=== PATIENT | female | born 1960 | race Caucasian/White ===

== ENCOUNTER 2022-10-05 19:12 | Inpatient (IN) | payer OTHER, SELFPAY ==
--- OUTSIDE RECORDS SUMMARY | 2022-10-05 19:20 | XMS REPORT | Continuity of Care Document ---
:1960 Author Organization [facility] t Address [address] [place] [address] Care Team Providers Name Role Phone PCP, PATIENT DOES NOT HAVE A Primary Care Physician Unavaila Nasir Burkett Attending Clinician Unavailable Nasir Marinelli Attending Clinician Unavailable CHRISTOPHER ASCENCIO Attending Clinician Unavailable JULIO CESAR SALAS Attending Clinician Unavailable SETH VEGAS Attending Clinician Unavailable MELONY LANCE Attending Clinician Unavailable JUAN A ANSARI Attending Clinician Unavailable DIEGO VERAS Attending Clinician Unavailable CELINA CARRERA Attending Clinician Unavailable MARIA R BISHOP Attending Clinician Unavailable CLAUDINE CRUZ Attending Clinician Unavailable Harpreet Alberto MD Attending Clinician Claudine Cruz MD Attending Clinician Jovana Suresh Attending Clinician Sánchez Lin MD Attending Clinician Raman Felipe MD Attending Clinician KACI MARK Attending Clinician Unavailable Kaci Mcmillan Attending Clinician Deshawn Lai MD Attending Clinician Jaquelin Velasco DO Attending Clinician JAQUELIN VELASCO Attending Clinician Unavailable Nasir Marinelli Admitting Clinician Unavailable JULIO CESAR SALAS Admitting Clinician Unavailable KRISTOPHER SESAY Admitting Clinician Unavailable DARIO MCINTOSH Admitting Clinician Unavailable CLAUDINE CRUZ Admitting Clinician Unavailable KACI MARK Admitting Clinician Unavailable Claudine Cruz MD Admitting Clinician Payers Payer Name Policy Type Policy Number Effective Date Expiration Date Bennie CUENCA [id number] 2022 PLAN 00:00:00 Problems Condition Condition Condition Status Onset Resolution Last Treating Co mments Source Name Details Category Date Date Treatment Clinician Date Obesity Obesity Disease Active 2020-0 [facility] (BMI (BMI 3-05 ity of 30-39.9) 30-39.9) 00:00: [place] 00 [facility] Surgery, Surgery, Disease Active 2019-0 Unive rs elective elective 3-04 ity of 00:00: 00 [facility] No known No known Disease Unive rs active active ity of problems problems [facility] Allergies, Adverse Reactions, Alerts Allergy Allergy Status Severity Reaction(s) Onset Inactive Treating Comm ents Source Name Type Date Date Clinician IBUPROFE Allergy Active Med [facility] ASPIRIN Allergy Active Other 2019-[address] [facility] CODEINE Allergy Active Other 2020-[address] [facility] HYDROCOD Allergy Active Other 2019-[address] [facility] AMINOPHE 00:00: Medical N 00 Center PENICILL Allergy Active Other 2020-[address] [facility] Aspirin Propensi Active Unknown - 2020-0 Univ ers ty to See comments 3-04 ity of adverse 00:00: [place] reaction 00 Medical [facility] Codeine Propensi Active Other - See 2020-0 Enhances Univers ty to comments 3-04 senses ity of adverse 00:00: [place] reaction 00 [facility] ASPIRIN DRUG Active Unknown-Cmnt 2020-0 Uni vers INGREDI 3-04 ity of 00:00: 00 [facility] CODEINE DRUG Active Other-Cmnt 2020-0 Unive rs INGREDI 3-04 ity of 00:00: [place] 00 Medical Branch PENICILL DRUG Active Unknown-Cmnt Un thu IN INGREDI 05-18 ity of 00:00: 00 Medical Branch HYDROCOD DRUG Active Other-Cmnt Univ ers ONE-ACET 05-18 ity of AMINOPHE 00:00: [place] N 00 Medical Branch Penicill Propensi Active Unknown - Uni vers in ty to See comments 05-18 ity of adverse 00:00: [place] reaction 00 Medical s Branch Hydrocod Propensi Active Other - See Enhanced Univers one-Acet ty to comments 05-18 senses ity of aminophe adverse 00:00: [place] n reaction 00 [facility] s Branch No Known Drug Active [facility] aspirin Drug Active [facility] penicill Drug Active [facility] Vicodin Drug Active [facility] aspirin Drug Active [facility] penicill Drug Active [facility] Vicodin Drug Active [facility] aspirin Drug Active [facility] penicill Drug Active [facility] Vicodin Drug Active [facility] aspirin Drug Active [facility] penicill Drug Active [facility] Vicodin Drug Active [facility] aspirin Drug Active [facility] penicill Drug Active [facility] Vicodin Drug Active [facility] aspirin Drug Active [facility] penicill Drug Active [facility] Vicodin Drug Active [facility] aspirin Drug Active [facility] penicill Drug Active [facility] Vicodin Drug Active [facility] Social History Social Habit Start Date Stop Date Quantity Comments Source [facility] to [facility]-CoV-2 [facility] Assigned At [facility] Smoking Status Start Date Stop Date Source Current every day smoker 2019-05-20 00:00:00 [facility] Unknown if ever smoked [facility] y [facility] Medications Ordered Filled Start Stop Current Ordering Indication Dosage Frequency Signature Comments Components Source Medication Medication Date Date Medication? Clinician (SIG) Name Name gabapentin 2020-0 Yes [id number] 300mg Take 1 [facility] 300 mg 6-04 capsule by ity of capsule 00:00: mouth 3 (three) Medical times Branch daily. gabapentin 2020-0 Yes [id number] 300mg Take 1 [facility] 300 mg 6-04 capsule by ity of capsule 00:00: mouth 3 (three) Medical times Branch daily. gabapentin 2020-0 Yes [id number] 300mg Take 1 [facility] 300 mg 6-04 capsule by ity of capsule 00:00: mouth 3 (three) Medical times Branch daily. gabapentin 2020-0 Yes [id number] 300mg Take 1 [facility] 300 mg 6-04 capsule by ity of capsule 00:00: mouth 3 (three) Medical times Branch daily. gabapentin 2020-0 Yes [id number] 300mg Take 1 [facility] 300 mg 6-04 capsule by ity of capsule 00:00: mouth (three) Medical times Branch daily. gabapentin 2020-0 Yes [id number] 300mg Take 1 [facility] 300 mg 4-23 capsule by ity of capsule 00:00: mouth (three) Medical times Branch daily. gabapentin 2020-0 Yes [id number] 300mg Take 1 [facility] 300 mg 4-23 capsule by ity of capsule 00:00: mouth (three) Medical times Branch daily. gabapentin 2020-0 Yes [id number] 300mg Take 1 [facility] 300 mg 4-23 capsule by ity of capsule 00:00: mouth (three) Medical times Branch daily. gabapentin 2020-0 Yes [id number] 300mg Take 1 [facility] 300 mg 4-23 capsule by ity of capsule 00:00: mouth (three) Medical times Branch daily. gabapentin 2020-0 Yes [id number] 300mg Take 1 [facility] 300 mg 4-23 capsule by ity of capsule 00:00: mouth 3 (three) Medical times Branch daily. gabapentin 2020-0 Yes [id number] 300mg Take 1 [facility] 300 mg 4-23 capsule by ity of capsule 00:00: mouth 3 (three) Medical times Branch daily. gabapentin 2020-0 2020- No [id number] 300mg Take 1 Univers 300 mg 4-23 06-04 capsule by ity of capsule 00:00: 00:00 mouth 3 [place] 00 :00 (three) Medical times Branch daily. gabapentin 2020-0 2020- No [id number] 300mg Take 1 Univers 300 mg 07-07 capsule by ity of capsule 00:00: 00:00 mouth 3 [place] 00 :00 (three) Medical times Branch daily. KCL 20 mEq 2019-0 2020- No [id number] 20meq Take 1 Univers tablet 05-25 [id number] tablet by ity o f 00:00: 04:59 mouth [place] 00 :00 daily for Medical 60 days. Branch KCL 20 mEq 2020-0 2020- No [id number] 20meq Take 1 Univers tablet 05-25 [id number] tablet by ity o f 00:00: 04:59 mouth [place] 00 :00 daily for Medical 60 days. Branch KCL 20 mEq 2020-0 2020- No [id number] 20meq Take 1 Univers tablet 05-25 [id number] tablet by ity o f 00:00: 04:59 mouth [place] 00 :00 daily for Medical 60 days. Branch KCL 20 mEq 2019-0 2020- No [id number] 20meq Take 1 Univers tablet 05-25 [id number] tablet by ity o f 00:00: 04:59 mouth [place] 00 :00 daily for Medical 60 days. Branch KCL 20 mEq 2020-0 2020- No [id number] 20meq Take 1 Univers tablet 05-25 [id number] tablet by ity o f 00:00: 04:59 mouth [place] 00 :00 daily for Medical 60 days. Branch KCL 20 mEq 2020-0 2020- No [id number] 20meq Take 1 Univers tablet 05-25 [id number] tablet by ity o f 00:00: 04:59 mouth [place] 00 :00 daily for Medical 60 days. Branch KCL 20 mEq 2020-0 2020- No [id number] 20meq Take 1 Univers tablet 05-25 [id number] tablet by ity o f 00:00: 04:59 mouth [place] 00 :00 daily for Medical 60 days. Branch KCL 20 mEq 2020-0 2020- No [id number] 20meq Take 1 Univers tablet 05-25 [id number] tablet by ity o f 00:00: 04:59 mouth [place] 00 :00 daily for Medical 60 days. Branch KCL 20 mEq 2020-0 2020- No [id number] 20meq Take 1 Univers tablet 05-25 [id number] tablet by ity o f 00:00: 04:59 mouth [place] 00 :00 daily for Medical 60 days. Branch KCL 20 mEq 2020-0 2020- No [id number] 20meq Take 1 Univers tablet 05-25 [id number] tablet by ity o f 00:00: 04:59 mouth [place] 00 :00 daily for Medical 60 days. Branch KCL 20 mEq 2020-0 2020- No [id number] 20meq Take 1 Univers tablet 05-25 [id number] tablet by ity o f 00:00: 04:59 mouth [place] 00 :00 daily for Medical 60 days. Branch KCL 20 mEq 2019-0 2020- No [id number] 20meq Take 1 Univers tablet 05-25 [id number] tablet by ity o f 00:00: 04:59 mouth [place] 00 :00 daily for Medical 60 days. Branch KCL 20 mEq 2019-0 2020- No [id number] 20meq Take 1 Univers tablet 05-25 [id number] tablet by ity o f 00:00: 04:59 mouth [place] 00 :00 daily for Medical 60 days. Branch KCL 20 mEq 2019-0 2020- No [id number] 20meq Take 1 Univers tablet 05-25 [id number] tablet by ity o f 00:00: 04:59 mouth [place] 00 :00 daily for Medical 60 days. Branch traMADol 50 2019-0 2020- No [id number] 50mg Take 1 Univers mg tablet 05-24 [id number] tablet by it y of 00:00: 04:59 mouth [place] 00 :00 every 8 Medical (eight) Branch hours for 10 days. traMADol 50 2020-0 2020- No [id number] 50mg Take 1 Univers mg tablet 05-24 [id number] tablet by it y of 00:00: 04:59 mouth [place] 00 :00 every 8 Medical (eight) Branch hours for 10 days. traMADol 2020-0 Yes 50mg 50 mg, Univers (ULTRAM) 05-23 Oral, ity of tablet 50 16:30: Q8HPRN, [place] mg 00 Starting Medical 05/24/19 Branch at 1130, Until Discontinu ed, Routine, Pain (scale 4-6) KCL 2020-0 2020- No 20meq 20 mEq, Univers (KLOR-CON 05-23 Oral, ity of M20) tablet 04:00: 03:53 ONCE, 1 [place] 20 mEq 00 :00 dose, [place] [facility] 05/23/19 at Branch 2300, Routine KCL 2020-0 Yes 40meq 40 mEq, Univers (KLOR-CON 3-08 Oral, ity of M20) tablet 22:30: DAILY, [place] 40 m[place] 00 First dose Medical on [facility] 05/23/19 at 1730, Until Discontinu ed, Routine NaCl 0.9% 2020-0 2020- No 500mL at 999 Univ ers (NS) bolus 3-08 03-08 mL/hr, 500 it y of infusion 08:00: 07:15 mL, [place] 500 mL 00 :00 Intravenou Medical s, ONCE, 1 Branch dose, [place] 05/23/19 at 0300, SEGUN NaCl 0.9% 2020-0 2020- No 500mL at 999 Univ ers (NS) bolus 3-07 03-07 mL/hr, 500 it y of infusion 11:45: 11:15 mL, [place] 500 mL 00 :00 Intravenou Medical s, ONCE, 1 Branch dose, [facility] 05/22/19 at 0545, STAT levothyroxi 2020-0 Yes [id number] 100ug Take 1 Univers ne 100 mcg 3- [id number] tablet by it y of tablet 00:00: mouth [place] 00 every Medical morning. Branch torsemide 2020-0 Yes [id number] 20mg Take 1 Univers 20 mg 3- [id number] tablet by ity of tablet 00:00: mouth [place] 00 daily. [facility] Branch levothyroxi 2020-0 Yes [id number] 100ug Take 1 Univers ne 100 mcg 3- [id number] tablet by it y of tablet 00:00: mouth [place] 00 every Medical morning. Branch torsemide 2020-0 Yes [id number] 20mg Take 1 Univers 20 mg 3- [id number] tablet by ity of tablet 00:00: mouth [place] 00 daily. [facility] Branch levothyroxi 2020-0 Yes [id number] 100ug Take 1 Univers ne 100 mcg 3- [id number] tablet by it y of tablet 00:00: mouth [place] 00 every Medical morning. Branch torsemide 2020-0 Yes [id number] 20mg Take 1 Univers 20 mg 3- [id number] tablet by ity of tablet 00:00: mouth [place] 00 daily. [facility] Branch levothyroxi 2020-0 Yes [id number] 100ug Take 1 Univers ne 100 mcg 3- [id number] tablet by it y of tablet 00:00: mouth [place] 00 every Medical morning. Branch torsemide 2020-0 Yes [id number] 20mg Take 1 Univers 20 mg 3- [id number] tablet by ity of tablet 00:00: mouth [place] 00 daily. Medical Branch levothyroxi 2020-0 Yes [id number] 100ug Take 1 Univers ne 100 mcg 3- [id number] tablet by it y of tablet 00:00: mouth [place] 00 every Medical morning. Branch torsemide 2020-0 Yes [id number] 20mg Take 1 Univers 20 mg 3- [id number] tablet by ity of tablet 00:00: mouth [place] 00 daily. Medical Branch levothyroxi 2020-0 Yes [id number] 100ug Take 1 Univers ne 100 mcg 3- [id number] tablet by it y of tablet 00:00: mouth [place] 00 every Medical morning. Branch torsemide 2020-0 Yes [id number] 20mg Take 1 Univers 20 mg 3- [id number] tablet by ity of tablet 00:00: mouth [place] 00 daily. Medical Branch levothyroxi 2020-0 Yes [id number] 100ug Take 1 Univers ne 100 mcg 3- [id number] tablet by it y of tablet 00:00: mouth [place] 00 every Medical morning. Branch torsemide 2020-0 Yes [id number] 20mg Take 1 Univers 20 mg 3- [id number] tablet by ity of tablet 00:00: mouth [place] 00 daily. Medical Branch levothyroxi 2020-0 Yes [id number] 100ug Take 1 Univers ne 100 mcg 3- [id number] tablet by it y of tablet 00:00: mouth [place] 00 every Medical morning. Branch torsemide 2020-0 Yes [id number] 20mg Take 1 Univers 20 mg 3- [id number] tablet by ity of tablet 00:00: mouth [place] 00 daily. Medical Branch levothyroxi 2020-0 Yes [id number] 100ug Take 1 Univers ne 100 mcg 3- [id number] tablet by it y of tablet 00:00: mouth [place] 00 every Medical morning. Branch torsemide 2020-0 Yes [id number] 20mg Take 1 Univers 20 mg 3-07 [id number] tablet by ity of tablet 00:00: mouth [place] 00 daily. Medical Branch levothyroxi 2020-0 Yes [id number] 100ug Take 1 Univers ne 100 mcg 3- [id number] tablet by it y of tablet 00:00: mouth [place] 00 every Medical morning. Branch torsemide 2020-0 Yes [id number] 20mg Take 1 Univers 20 mg 3- [id number] tablet by ity of tablet 00:00: mouth [place] 00 daily. Medical Branch levothyroxi 2020-0 Yes [id number] 100ug Take 1 Univers ne 100 mcg 3-07 [id number] tablet by it y of tablet 00:00: mouth [place] 00 every Medical morning. Branch torsemide 2020-0 Yes [id number] 20mg Take 1 Univers 20 mg 3-07 [id number] tablet by ity of tablet 00:00: mouth [place] 00 daily. Medical Branch levothyroxi 2020-0 Yes [id number] 100ug Take 1 Univers ne 100 mcg 3- [id number] tablet by it y of tablet 00:00: mouth [place] 00 every Medical morning. Branch torsemide 2020-0 Yes [id number] 20mg Take 1 Univers 20 mg 3- [id number] tablet by ity of tablet 00:00: mouth [place] 00 daily. Medical Branch levothyroxi 2020-0 Yes [id number] 100ug Take 1 Univers ne 100 mcg 3- [id number] tablet by it y of tablet 00:00: mouth [place] 00 every Medical morning. Branch torsemide 2020-0 Yes [id number] 20mg Take 1 Univers 20 mg 3- [id number] tablet by ity of tablet 00:00: mouth [place] 00 daily. Medical Branch levothyroxi 2020-0 Yes [id number] 100ug Take 1 Univers ne 100 mcg 3- [id number] tablet by it y of tablet 00:00: mouth [place] 00 every Medical morning. Branch torsemide 2020-0 Yes [id number] 20mg Take 1 Univers 20 mg 3-07 [id number] tablet by ity of tablet 00:00: mouth [place] 00 daily. Medical Branch levothyroxi 2020-0 Yes [id number] 100ug Take 1 Univers ne 100 mcg 3-07 [id number] tablet by it y of tablet 00:00: mouth [place] 00 every Medical morning. Branch torsemide 2020-0 Yes [id number] 20mg Take 1 Univers 20 mg 3-07 [id number] tablet by ity of tablet 00:00: mouth [place] 00 daily. Medical Branch levothyroxi 2020-0 Yes [id number] 100ug Take 1 Univers ne 100 mcg 3-07 [id number] tablet by it y of tablet 00:00: mouth [place] 00 every Medical morning. [place] torsemide 2020-0 Yes [id number] 20mg Take 1 Univers 20 mg - [id number] tablet by ity of tablet 00:00: mouth [place] 00 daily. [facility] levothyroxi 2020-0 Yes [id number] 100ug Take 1 Univers ne 100 mcg 3- [id number] tablet by it y of tablet 00:00: mouth [place] 00 every Medical morning. [place] torsemide 2020-0 Yes [id number] 20mg Take 1 Univers 20 mg - [id number] tablet by ity of tablet 00:00: mouth [place] 00 daily. [facility] levothyroxi 2020-0 Yes [id number] 100ug Take 1 Univers ne 100 mcg - [id number] tablet by it y of tablet 00:00: mouth [place] 00 every Medical morning. [place] torsemide 2020-0 Yes [id number] 20mg Take 1 Univers 20 mg - [id number] tablet by ity of tablet 00:00: mouth [place] 00 daily. [facility] levothyroxi 2020-0 Yes [id number] 100ug Take 1 Univers ne 100 mcg 05-21 [id number] tablet by it y of tablet 00:00: mouth [place] 00 every Medical morning. [place] torsemide 2020-0 Yes [id number] 20mg Take 1 Univers 20 mg 05-21 [id number] tablet by ity of tablet 00:00: mouth [place] 00 daily. [facility] levothyroxi 2020-0 Yes [id number] 100ug Take 1 Univers ne 100 mcg 05-21 [id number] tablet by it y of tablet 00:00: mouth [place] 00 every Medical morning. [place] torsemide 2020-0 Yes [id number] 20mg Take 1 Univers 20 mg 05-21 [id number] tablet by ity of tablet 00:00: mouth [place] 00 daily. [facility] levothyroxi 2020-0 Yes 100ug 100 mcg, U nivers ne - Oral, ity of (SYNTHROID) 12:00: QAM-0600, [place] tablet 100 00 First dose Med ical mcg on Fri [place] 05/21/19 at 0600, Until Discontinu ed, Routine acetaminoph 2020-0 2020- No 500mg 500 mg, U nivers en 05-20 03-09 Oral, ity of (TYLENOL) 07:21: 16:24 Q6HPRN, [place] tablet 500 45 :56 Starting Medic al mg 05/21/19 Branch at 0121, Until 05/24/19 at 1124, Routine, Pain (scale 1-3), Alternate with [place] for pain scale 1-3 acetaminoph 2020-0 Yes [id number] 500mg Take 1 Univers en 500 mg 3-06 [id number] tablet by ity of tablet 00:00: mouth [place] 00 every 6 Medical (six) Branch hours as needed for Pain. cyclobenzap 2020-0 Yes [id number] 5mg Take 1 Univers rine 5 mg 3-06 [id number] tablet by ity of tablet 00:00: mouth 3 [place] 00 (three) Medical times Branch daily. gabapentin 2020-0 Yes [id number] 300mg Take 1 Univers 300 mg 3-06 [id number] capsule by ity o f capsule 00:00: mouth 3 [place] 00 (three) Medical times Branch daily. sennosides- 2020-0 Yes [id number] 1{tbl} Take 1 Univers docusate 3-06 [id number] tablet by ity of sodium 00:00: mouth 2 [place] 8.6-50 mg 00 (two) Medical per tablet times Branch daily. acetaminoph 2020-0 Yes [id number] 500mg Take 1 Univers en 500 mg 3-06 [id number] tablet by ity of tablet 00:00: mouth [place] 00 every 6 Medical (six) Branch hours as needed for Pain. cyclobenzap 2020-0 Yes [id number] 5mg Take 1 Univers rine 5 mg 3-06 [id number] tablet by ity of tablet 00:00: mouth 3 [place] 00 (three) Medical times Branch daily. gabapentin 2020-0 Yes [id number] 300mg Take 1 Univers 300 mg 3-06 [id number] capsule by ity o f capsule 00:00: mouth 3 [place] 00 (three) Medical times Branch daily. sennosides- 2020-0 Yes [id number] 1{tbl} Take 1 Univers docusate 3-06 [id number] tablet by ity of sodium 00:00: mouth 2 [place] 8.6-50 mg 00 (two) Medical per tablet times Branch daily. acetaminoph 2020-0 Yes [id number] 500mg Take 1 Univers en 500 mg 3-06 [id number] tablet by ity of tablet 00:00: mouth [place] 00 every 6 Medical (six) Branch hours as needed for Pain. cyclobenzap 2020-0 Yes [id number] 5mg Take 1 Univers rine 5 mg 3-06 [id number] tablet by ity of tablet 00:00: mouth 3 [place] 00 (three) Medical times Branch daily. gabapentin 2020-0 Yes [id number] 300mg Take 1 Univers 300 mg 3-06 [id number] capsule by ity o f capsule 00:00: mouth 3 [place] 00 (three) Medical times Branch daily. sennosides- 2020-0 Yes [id number] 1{tbl} Take 1 Univers docusate 3-06 [id number] tablet by ity of sodium 00:00: mouth 2 [place] 8.6-50 mg 00 (two) Medical per tablet times Branch daily. acetaminoph 2020-0 Yes [id number] 500mg Take 1 Univers en 500 mg 3-06 [id number] tablet by ity of tablet 00:00: mouth [place] 00 every 6 Medical (six) Branch hours as needed for Pain. cyclobenzap 2020-0 Yes [id number] 5mg Take 1 Univers rine 5 mg 3-06 [id number] tablet by ity of tablet 00:00: mouth 3 [place] 00 (three) Medical times Branch daily. gabapentin 2020-0 Yes [id number] 300mg Take 1 Univers 300 mg 3-06 [id number] capsule by ity o f capsule 00:00: mouth 3 00 (three) Medical times Branch daily. sennosides- 2020-0 Yes [id number] 1{tbl} Take 1 Univers docusate 3-06 [id number] tablet by ity of sodium 00:00: mouth 2 [place] 8.6-50 mg 00 (two) Medical per tablet times Branch daily. acetaminoph 2020-0 Yes [id number] 500mg Take 1 Univers en 500 mg 3-06 [id number] tablet by ity of tablet 00:00: mouth [place] 00 every 6 Medical (six) Branch hours as needed for Pain. cyclobenzap 2020-0 Yes [id number] 5mg Take 1 Univers rine 5 mg 3-06 [id number] tablet by ity of tablet 00:00: mouth 3 [place] 00 (three) Medical times Branch daily. gabapentin 2020-0 Yes [id number] 300mg Take 1 Univers 300 mg 3-06 [id number] capsule by ity o f capsule 00:00: mouth 3 [place] 00 (three) Medical times Branch daily. sennosides- 2020-0 Yes [id number] 1{tbl} Take 1 Univers docusate 3-06 [id number] tablet by ity of sodium 00:00: mouth 2 [place] 8.6-50 mg 00 (two) Medical per tablet times Branch daily. acetaminoph 2020-0 Yes [id number] 500mg Take 1 Univers en 500 mg 3-06 [id number] tablet by ity of tablet 00:00: mouth [place] 00 every 6 Medical (six) Branch hours as needed for Pain. cyclobenzap 2020-0 Yes [id number] 5mg Take 1 Univers rine 5 mg 3-06 [id number] tablet by ity of tablet 00:00: mouth 3 [place] 00 (three) Medical times Branch daily. gabapentin 2020-0 Yes [id number] 300mg Take 1 Univers 300 mg 3-06 [id number] capsule by ity o f capsule 00:00: mouth 3 [place] 00 (three) Medical times Branch daily. sennosides- 2020-0 Yes [id number] 1{tbl} Take 1 Univers docusate 3-06 [id number] tablet by ity of sodium 00:00: mouth 2 [place] 8.6-50 mg 00 (two) Medical per tablet times Branch daily. acetaminoph 2020-0 Yes [id number] 500mg Take 1 Univers en 500 mg 3-06 [id number] tablet by ity of tablet 00:00: mouth [place] 00 every 6 Medical (six) Branch hours as needed for Pain. cyclobenzap 2020-0 Yes [id number] 5mg Take 1 Univers rine 5 mg 3-06 [id number] tablet by ity of tablet 00:00: mouth 3 [place] 00 (three) Medical times Branch daily. gabapentin 2020-0 Yes [id number] 300mg Take 1 Univers 300 mg 3-06 [id number] capsule by ity o f capsule 00:00: mouth 3 [place] 00 (three) Medical times Branch daily. sennosides- 2020-0 Yes [id number] 1{tbl} Take 1 Univers docusate 3-06 [id number] tablet by ity of sodium 00:00: mouth 2 [place] 8.6-50 mg 00 (two) Medical per tablet times Branch daily. acetaminoph 2020-0 Yes [id number] 500mg Take 1 Univers en 500 mg 3-06 [id number] tablet by ity of tablet 00:00: mouth [place] 00 every 6 Medical (six) Branch hours as needed for Pain. cyclobenzap 2020-0 Yes [id number] 5mg Take 1 Univers rine 5 mg 3-06 [id number] tablet by ity of tablet 00:00: mouth 3 [place] 00 (three) Medical times Branch daily. gabapentin 2020-0 Yes [id number] 300mg Take 1 Univers 300 mg 3-06 [id number] capsule by ity o f capsule 00:00: mouth 3 [place] 00 (three) Medical times Branch daily. sennosides- 2020-0 Yes [id number] 1{tbl} Take 1 Univers docusate 3-06 [id number] tablet by ity of sodium 00:00: mouth 2 [place] 8.6-50 mg 00 (two) Medical per tablet times Branch daily. acetaminoph 2020-0 Yes [id number] 500mg Take 1 Univers en 500 mg 3-06 [id number] tablet by ity of tablet 00:00: mouth [place] 00 every 6 Medical (six) Branch hours as needed for Pain. cyclobenzap 2020-0 Yes [id number] 5mg Take 1 Univers rine 5 mg 3-06 [id number] tablet by ity of tablet 00:00: mouth 3 [place] 00 (three) Medical times Branch daily. gabapentin 2020-0 Yes [id number] 300mg Take 1 Univers 300 mg 3-06 [id number] capsule by ity o f capsule 00:00: mouth 3 00 (three) Medical times Branch daily. sennosides- 2020-0 Yes [id number] 1{tbl} Take 1 Univers docusate 3-06 [id number] tablet by ity of sodium 00:00: mouth 2 [place] 8.6-50 mg 00 (two) Medical per tablet times Branch daily. acetaminoph 2020-0 Yes [id number] 500mg Take 1 Univers en 500 mg 3-06 [id number] tablet by ity of tablet 00:00: mouth [place] 00 every 6 Medical (six) Branch hours as needed for Pain. cyclobenzap 2020-0 Yes [id number] 5mg Take 1 Univers rine 5 mg 3-06 [id number] tablet by ity of tablet 00:00: mouth 3 [place] 00 (three) Medical times Branch daily. gabapentin 2020-0 Yes [id number] 300mg Take 1 [facility] 300 mg 3-06 [id number] capsule by ity o f capsule 00:00: mouth 3 [place] 00 (three) Medical times Branch daily. sennosides- 2020-0 Yes [id number] 1{tbl} Take 1 Univers docusate 3-06 [id number] tablet by ity of sodium 00:00: mouth 2 [place] 8.6-50 mg 00 (two) Medical per tablet times Branch daily. acetaminoph 2020-0 Yes [id number] 500mg Take 1 Univers en 500 mg 3-06 [id number] tablet by ity of tablet 00:00: mouth [place] 00 every 6 Medical (six) Branch hours as needed for Pain. cyclobenzap 2020-0 Yes [id number] 5mg Take 1 Univers rine 5 mg 3-06 [id number] tablet by ity of tablet 00:00: mouth 3 [place] 00 (three) Medical times Branch daily. gabapentin 2020-0 Yes [id number] 300mg Take 1 Univers 300 mg 3-06 [id number] capsule by ity o f capsule 00:00: mouth 3 [place] 00 (three) Medical times Branch daily. sennosides- 2020-0 Yes [id number] 1{tbl} Take 1 Univers docusate 3-06 [id number] tablet by ity of sodium 00:00: mouth 2 [place] 8.6-50 mg 00 (two) Medical per tablet times Branch daily. acetaminoph 2020-0 Yes [id number] 500mg Take 1 Univers en 500 mg 3-06 [id number] tablet by ity of tablet 00:00: mouth [place] 00 every 6 Medical (six) Branch hours as needed for Pain. cyclobenzap 2020-0 Yes [id number] 5mg Take 1 Univers rine 5 mg 3-06 [id number] tablet by ity of tablet 00:00: mouth 3 [place] 00 (three) Medical times Branch daily. gabapentin 2020-0 Yes [id number] 300mg Take 1 Univers 300 mg 3-06 [id number] capsule by ity o f capsule 00:00: mouth 3 [place] 00 (three) Medical times Branch daily. sennosides- 2020-0 Yes [id number] 1{tbl} Take 1 Univers docusate 3-06 [id number] tablet by ity of sodium 00:00: mouth 2 [place] 8.6-50 mg 00 (two) Medical per tablet times Branch daily. acetaminoph 2020-0 Yes [id number] 500mg Take 1 Univers en 500 mg 3-06 [id number] tablet by ity of tablet 00:00: mouth [place] 00 every 6 Medical (six) Branch hours as needed for Pain. cyclobenzap 2020-0 Yes [id number] 5mg Take 1 Univers rine 5 mg 3-06 [id number] tablet by ity of tablet 00:00: mouth 3 [place] 00 (three) Medical times Branch daily. gabapentin 2020-0 Yes [id number] 300mg Take 1 Univers 300 mg 3-06 [id number] capsule by ity o f capsule 00:00: mouth 3 [place] 00 (three) Medical times Branch daily. sennosides- 2020-0 Yes [id number] 1{tbl} Take 1 Univers docusate 3-06 [id number] tablet by ity of sodium 00:00: mouth 2 [place] 8.6-50 mg 00 (two) Medical per tablet times Branch daily. acetaminoph 2020-0 Yes [id number] 500mg Take 1 Univers en 500 mg 3-06 [id number] tablet by ity of tablet 00:00: mouth [place] 00 every 6 Medical (six) Branch hours as needed for Pain. cyclobenzap 2020-0 Yes [id number] 5mg Take 1 Univers rine 5 mg 3-06 [id number] tablet by ity of tablet 00:00: mouth 3 [place] 00 (three) Medical times Branch daily. gabapentin 2020-0 Yes [id number] 300mg Take 1 Univers 300 mg 3-06 [id number] capsule by ity o f capsule 00:00: mouth 3 00 (three) Medical times Branch daily. sennosides- 2020-0 Yes [id number] 1{tbl} Take 1 Univers docusate 3-06 [id number] tablet by ity of sodium 00:00: mouth 2 [place] 8.6-50 mg 00 (two) Medical per tablet times Branch daily. acetaminoph 2020-0 Yes [id number] 500mg Take 1 Univers en 500 mg 3-06 [id number] tablet by ity of tablet 00:00: mouth [place] 00 every 6 Medical (six) Branch hours as needed for Pain. cyclobenzap 2020-0 Yes [id number] 5mg Take 1 Univers rine 5 mg 3-06 [id number] tablet by ity of tablet 00:00: mouth 3 [place] 00 (three) Medical times Branch daily. gabapentin 2020-0 Yes [id number] 300mg Take 1 Univers 300 mg 3-06 [id number] capsule by ity o f capsule 00:00: mouth 3 [place] 00 (three) Medical times Branch daily. sennosides- 2020-0 Yes [id number] 1{tbl} Take 1 Univers docusate 3-06 [id number] tablet by ity of sodium 00:00: mouth 2 [place] 8.6-50 mg 00 (two) Medical per tablet times Branch daily. acetaminoph 2020-0 Yes [id number] 500mg Take 1 Univers en 500 mg 3-06 [id number] tablet by ity of tablet 00:00: mouth [place] 00 every 6 Medical (six) Branch hours as needed for Pain. cyclobenzap 2020-0 Yes [id number] 5mg Take 1 Univers rine 5 mg 3-06 [id number] tablet by ity of tablet 00:00: mouth 3 [place] 00 (three) Medical times Branch daily. gabapentin 2020-0 Yes [id number] 300mg Take 1 Univers 300 mg 3-06 [id number] capsule by ity o f capsule 00:00: mouth 3 [place] 00 (three) Medical times Branch daily. sennosides- 2020-0 Yes [id number] 1{tbl} Take 1 Univers docusate 3-06 [id number] tablet by ity of sodium 00:00: mouth 2 [place] 8.6-50 mg 00 (two) Medical per tablet times Branch daily. acetaminoph 2020-0 Yes [id number] 500mg Take 1 Univers en 500 mg 3-06 [id number] tablet by ity of tablet 00:00: mouth [place] 00 every 6 Medical (six) Branch hours as needed for Pain. cyclobenzap 2020-0 Yes [id number] 5mg Take 1 Univers rine 5 mg 3-06 [id number] tablet by ity of tablet 00:00: mouth 3 [place] 00 (three) Medical times Branch daily. gabapentin 2020-0 Yes [id number] 300mg Take 1 Univers 300 mg 3-06 [id number] capsule by ity o f capsule 00:00: mouth 3 [place] 00 (three) Medical times Branch daily. sennosides- 2020-0 Yes [id number] 1{tbl} Take 1 Univers docusate 3-06 [id number] tablet by ity of sodium 00:00: mouth 2 [place] 8.6-50 mg 00 (two) Medical per tablet times Branch daily. acetaminoph 2020-0 Yes [id number] 500mg Take 1 Univers en 500 mg 3-06 [id number] tablet by ity of tablet 00:00: mouth [place] 00 every 6 Medical (six) Branch hours as needed for Pain. cyclobenzap 2020-0 Yes [id number] 5mg Take 1 Univers rine 5 mg 3-06 [id number] tablet by ity of tablet 00:00: mouth 3 [place] 00 (three) Medical times Branch daily. gabapentin 2020-0 Yes [id number] 300mg Take 1 Univers 300 mg 3-06 [id number] capsule by ity o f capsule 00:00: mouth 3 [place] 00 (three) Medical times Branch daily. sennosides- 2020-0 Yes [id number] 1{tbl} Take 1 Univers docusate 3-06 [id number] tablet by ity of sodium 00:00: mouth 2 [place] 8.6-50 mg 00 (two) Medical per tablet times Branch daily. acetaminoph 2020-0 Yes [id number] 500mg Take 1 Univers en 500 mg 3-06 [id number] tablet by ity of tablet 00:00: mouth [place] 00 every 6 Medical (six) Branch hours as needed for Pain. cyclobenzap 2020-0 Yes [id number] 5mg Take 1 Univers rine 5 mg 3-06 [id number] tablet by ity of tablet 00:00: mouth 3 [place] 00 (three) Medical times Branch daily. gabapentin 2020-0 Yes [id number] 300mg Take 1 Univers 300 mg 3-06 [id number] capsule by ity o f capsule 00:00: mouth 3 00 (three) Medical times Branch daily. sennosides- 2020-0 Yes [id number] 1{tbl} Take 1 Univers docusate 3-06 [id number] tablet by ity of sodium 00:00: mouth 2 [place] 8.6-50 mg 00 (two) Medical per tablet times Branch daily. acetaminoph 2020-0 Yes [id number] 500mg Take 1 Univers en 500 mg 3-06 [id number] tablet by ity of tablet 00:00: mouth [place] 00 every 6 Medical (six) Branch hours as needed for Pain. cyclobenzap 2020-0 Yes [id number] 5mg Take 1 Univers rine 5 mg 3-06 [id number] tablet by ity of tablet 00:00: mouth 3 [place] 00 (three) Medical times Branch daily. gabapentin 2020-0 Yes [id number] 300mg Take 1 Univers 300 mg 3-06 [id number] capsule by ity o f capsule 00:00: mouth 3 [place] 00 (three) Medical times Branch daily. sennosides- 2020-0 Yes [id number] 1{tbl} Take 1 Univers docusate 05-20 [id number] tablet by ity of sodium 00:00: mouth 2 [place] 8.6-50 mg 00 (two) Medical per tablet times Branch daily. traMADol 50 2020-0 2020- No [id number] 50mg Take 1 Univers mg tablet 05-20-10 [id number] tablet by it y of 00:00: 00:00 mouth [place] 00 :00 every 8 Medical (eight) Branch hours. torsemide 2020-0 Yes 20mg 20 mg, Univer s (DEMADEX) 3-05 Oral, ity of tablet 20 21:00: DAILY, [place] mg 00 First dose Medical on [facility] 05/20/19 at 1500, Until Discontinu ed, Routine sennosides- 2020-0 Yes 1{tbl} 1 tablet, Univers docusate 05-19 Oral, BID, ity o f sodium 14:00: First dose [place] (SENOKOT S) 00 on [facility] 8.6-50 mg 05/20/19 at [facility] h per tablet 0800, 1 tablet Until Discontinu ed, Routine traMADol 2020-0 2020- No 50mg 50 mg, Univer s (ULTRAM) 05-19 03-09 Oral, Q8H, ity of tablet 50 12:00: 16:24 [place] dose [place] :56 on [facility] 05/20/19 at Branch 0600, Until Discontinu ed, Routine gabapentin 2020-0 Yes 300mg 300 mg, Uni vers (NEURONTIN) 305 Oral, TID, it y of capsule 300 08:00: First dose [place] mg 00 on [facility] 05/20/19 at Branch 0200, Until Discontinu ed, Routine cyclobenzap 2020-0 2020- No 5mg 5 mg, Univ ers rine 3- 03-08 Oral, TID, ity of (FLEXERIL) 08:00: 20:29 First dose [place] tablet 5 mg 00 :00 on [facility] 05/20/19 at Branch 0200, Until Discontinu ed, Routine diphenhydrA 2020-0 Yes 25mg 25 mg, Univ ers MINE 3-05 Oral, ity of (BENADRYL) 05:00: Q4HPRN, [place] tablet 25 56 [place] Medica l mg Fri05/19/19 Branch at 2300, Until Discontinu ed, Routine, Itching morpHINE Yes 4mg 4 mg, Slow Uni vers injection 4 3-05 IV Push, ity of mg 05:00: Q4HPRAmalia, [place] 42 Starting Medical Fri05/19/19 Branch at 2300, Until Discontinu ed, Routine, Pain (scale 7-10) No known No Univers medications ity [facility] Vital Signs Vital Name Observation Time Observation Value Comments Source Height/Length 2019-03-26 15:06:23 Measured HEIGHT 2022-07-17 10:45:00 167.6 cm WEIGHT 2022-07-17 10:45:00 72.576 kg HEIGHT 2022-07-17 10:45:00 167.6 cm WEIGHT 2022-07-17 10:45:00 72.576 kg HEIGHT 2022-06-22 00:00:00 167.6 cm WEIGHT 2022-06-22 00:00:00 72.576 kg HEIGHT 2022-06-22 00:00:00 167.6 cm WEIGHT 2022-06-22 00:00:00 72.576 kg Body temperature 2019-08-19 19:38:00 36.22 Laly [facility] Body weight 2019-08-19 19:38:00 77.111 kg [facility] BMI 2019-08-19 19:38:00 30.11 kg/m2 [facility] Body temperature 2019-07-08 14:33:00 36.78 Laly [facility] Body temperature 2019-06-08 20:59:00 36.67 Laly [facility] Systolic blood 2019-05-25 21:00:00 127 mm[Hg] Univer sity of pressure [facility] Diastolic blood 2019-05-25 21:00:00 66 mm[Hg] [facility] Heart rate 2019-05-25 21:00:00 88 /min [facility] Body temperature 2019-05-25 21:00:00 36.83 Laly [facility] Respiratory rate 2019-05-25 21:00:00 18 /min [facility] Oxygen saturation in 2019-05-25 21:00:00 95 /min University of Arterial blood by [place] Medi ignacia Pulse oximetry Branch Body height 2019-05-20 06:28:00 160 cm Universi ty of [place] [facility] [place] Body weight 2019-05-20 06:28:00 77.111 kg Universi ty of [place] [facility] BMI 2019-05-20 06:28:00 30.11 kg/m2 Universi ty of [facility] Systolic blood 2019-05-20 03:00:00 141 mm[Hg] Univer sity of pressure [facility] Diastolic blood 2019-05-20 03:00:00 84 mm[Hg] Unive rsity of pressure [facility] Heart rate 2019-05-20 03:00:00 82 /min Universi ty of [facility] Respiratory rate 2019-05-20 03:00:00 18 /min [facility] saturation in 2019-05-20 03:00:00 97 /min University of Arterial blood by [facility] ignacia Pulse oximetry Branch Body temperature 2019-05-20 01:12:00 35.72 Laly Univ ersity of [facility] Body height 2019-05-20 01:12:00 160 cm Universi ty of [facility] Body weight 2019-05-20 01:12:00 81.647 kg Universi ty of [facility] BMI 2019-05-20 01:12:00 31.89 kg/m2 Universi ty of [facility] Height/Length 2021-04-03 08:36:11 167.6 cm Measured Weight Dosing 2021-04-03 08:36:11 81.60 kg Height/Length 2021-04-03 08:33:31 167.6 cm Measured Weight Dosing 2021-04-03 08:33:31 81.60 kg Height/Length 2021-04-03 08:33:22 167.6 cm Measured Weight Dosing 2021-04-03 08:33:22 81.60 kg Height/Length 2021-04-03 08:32:56 167.6 cm Measured Weight Dosing 2021-04-03 08:32:56 81.60 kg Height/Length 2021-04-03 08:31:34 167.6 cm Measured Weight Dosing 2021-04-03 08:31:34 81.60 kg Height/Length 2021-04-03 08:31:33 167.6 cm Measured Weight Dosing 2021-04-03 08:31:33 81.60 kg Procedures Procedure Date / Time Performing Clinician Source Performed XR KNEE <3 VW RIGHT 2019-08-19 18:35:17 RileyMarvinSánchez [facility] XR KNEE <3 VW RIGHT 2019-07-08 14:29:18 Sánchez Lin [facility] XR KNEE 3 VW RIGHT 2019-06-08 20:53:15 Kaci Mark [facility] BASIC METABOLIC PANEL (NA, 2019-05-25 08:06:00 [facility], CO2, GLUCOSE, BUN, Medica l Branch CREATININE, CA) CBC WITH DIFFERENTIAL 2019-05-25 08:06:00 Yanci [facility] BILATERAL VENOUS DUPLEX 2019-05-24 16:13:53 Carmelo Vega [facility] LOWER EXTREMITY BY [facility] VASCULAR LAB FREE T3 2019-05-24 09:35:00 Andriy [facility] [place] [facility] TRIIODOTHYRONINE 2019-05-24 09:35:00 Andriy [facility] [place] [facility] THYROXINE, TOTAL 2019-05-24 09:35:00 Andriy [facility] [place] [facility] BASIC METABOLIC PANEL (NA, 2019-05-24 09:35:00 [facility], CO2, GLUCOSE, BUN, Medica l Branch CREATININE, CA) CBC WITH DIFFERENTIAL 2019-05-24 09:35:00 Yanci angela [facility] CREATINE KINASE 2019-05-23 21:17:00 Carmelo Vega [facility] RHEUMATOID FACTOR 2019-05-23 21:17:[address] [facility] C-REACTIVE PROTEIN 2019-05-23 21:17:00 EscChantel mcmillannathan [facility] FREE T4 2019-05-23 21:17:00 EscCarmelo mcmillan [facility] SEDIMENTATION RATE 2019-05-23 21:17:00 Carmelo Vega [facility] ANTI-NUCLEAR ANTIBODY 2019-05-23 21:17:00 Carmelo Vega [facility] SCREEN [facility] BASIC METABOLIC PANEL (NA, 2019-05-23 21:16:00 Cris Mccarthy [facility] K, CL, CO2, GLUCOSE, BUN, Medica l Branch CREATININE, CA) CBC WITH DIFFERENTIAL 2019-05-23 21:16:00 [facility] 2019-05-23 19:30:00 Cris Mccarthy [facility] URINE CULTURE 2019-05-23 19:29:00 Cris Mccarthy [facility] XR CHEST 2 VW 2019-05-23 16:50:16 Cris Mccarthy [facility] XR FOOT 3+ VW LEFT 2019-05-22 12:54:10 Cris Mccarthy [facility] MR PELVIS WO CONTRAST 2019-05-20 23:40:54 Raman Felipe [facility] XR ANKLE 3+ VW RIGHT 2019-05-20 14:32:00 Kcai Mark [facility] CT KNEE RIGHT WO CONTRAST 2019-05-20 05:13:50 Tahir Durand [facility] ABORH CONFIRMATION 2019-05-20 03:05:00 Claudine [facility] THYROID STIMULATING 2019-05-20 02:47:00 [facility] BASIC METABOLIC PANEL (NA, 2019-05-20 02:47:00 Jaquelin Velasco [facility] K, CL, CO2, GLUCOSE, BUN, Medica l Branch CREATININE, CA) CBC WITH DIFFERENTIAL 2019-05-20 02:47:00 Jaquelin Velasco [facility] PROTHROMBIN TIME / INR 2019-05-20 02:47:00 [facility] HB ABO GROUPING 2019-05-20 02:45:00 Jaquelin [facility] XR TIBIA FIBULA 2 VW RIGHT 2019-05-20 02:02:25 Jaquelin Velasco [facility] XR KNEE 3 VW RIGHT 2019-05-20 02:02:13 Jaquelin Velasco [facility] XR FEMUR 2 VW RIGHT 2019-05-20 02:01:[address] [facility] Encounters Start End Encounter Admission Attending Care Care Encounter Source Date/Time Date/Time Type Type Clinicians Facility Department ID 2019-03-26 Inpatient 1 Nasir Marinelli [facility] JES[id number] 08:21:00 Nasir Marinelli -[id number] [facility] 2022-09-10 2022-09-10 Outpatient JAYJAY ASCENCIO [facility] [id number] SLE 12:17:36 12:17:36 TANMDYI 2022-08-20 2022-08-20 Outpatient JAYJAY ASCENCIO [facility] [id number] SLEH 10:59:51 10:59:51 [facility] 2022-08-19 2022-08-19 Outpatient [facility] Surgery [id number] SLEH 10:19:00 12:55:00 SUNEAL 2022-08-02 2022-08-02 Outpatient EL [facility] [id number] SLE 15:38:11 23:59:00 2022-07-17 2022-07-20 Outpatient ER [facility] Emergency [id number] SLE 12:21:00 22:00:00 SETH 2022-07-17 2022-07-17 Outpatient EL VERAS [facility] [id number] SLE 10:35:01 10:35:01 DIEGO 2022-06-21 2022-06-25 Inpatient ER [facility] [id number] SLEH 23:23:00 13:12:00 CELINA 2019-09-23 2019-09-23 Outpatient Lupe [facility] [id number] Univers 09:20:00 09:20:00 CLAUDINE montelongo [facility] 2019-09-23 2019-09-23 Abstract Dolly [facility] [id number] Univers 00:00:00 00:00:[address] [facility] [id number] [facility] [place] [id number] Ne dical [address] [place] 2019-09-22 2019-09-22 Abstract CLAUDINE Alberto [id number] Univers 00:00:00 00:00:00 Harpreet DOMINGO 350.1.13.10 it y of [facility] 4.2.7.2.686 [place] [id number] [facility] [address] [place] 2019-08-19 2019-08-19 Outpatient R [facility] [id number] Univers 13:19:38 23:59:00 CLAUDINE montelongo [facility] 2019-08-19 2019-08-19 [facility] [id number] Univers 13:19:00 23:59:00 Encounter Claudine PRIMARY [id number] ity of [place] [id number] Ne dical [address] [place] 2019-08-19 2019-08-19 Office [facility] [id number] Univers 13:09:50 15:28:52 Visit Jovana Andujar PRIMARY [id number] ity of [id number] [id number] [facility] [address] 2019-08-19 2019-08-19 Outpatient [facility] [id number] Univers 10:30:00 10:30:00 CLAUDINE montelongo [facility] 2019-08-18 2019-08-18 Abstract [facility] [id number] Univers 00:00:00 00:00:00 Sánchez PRIMARY [id number] it y of [facility] 4.2.7.2.686 [place] PAV[place]ION [id number] Ne dical [address] 2019-07-20 2019-07-20 Refill [facility] [id number] Univers 00:00:00 00:00:00 Claudine PRIMARY [id number] it y of [place] [id number] Ne dical [address] 2019-07-08 2019-07-16 Office [facility] [id number] Univers 08:57:52 10:28:12 Visit Claudine PRIMARY 350.1.13.10 it y of [place] [id number] Ne dicil [address] 2019-07-08 2019-07-08 Outpatient R [facility] [id number] Univers 09:13:07 23:59:00 CLAUDINE montelongo [facility] 2019-07-08 2019-07-08 [facility] [id number] Univers 09:13:00 23:59:00 Encounter Claudine PRIMARY [id number] ity of [place] [id number] [facility] [address] [place] 2019-07-07 2019-07-07 Abstract [facility] [id number] Univers 00:00:00 00:00:00 Sánchez PRIMARY 350.1.13.10 it y of [place] CARE 4.2.7.2.686 [place] PAV[place]ION [id number] [facility] [address] 2019-06-24 2019-06-24 Outpatient R [facility] [id number] Univers 09:50:00 09:50:00 CLAUDINE montelongo [facility] 2019-06-24 2019-06-24 Telephone [facility] [id number] Univers 00:00:00 00:00:00 Claudine PRIMARY 350.1.13.10 it y of [place] [id number] Ne dicil [address] 2019-06-21 2019-06-21 Abstract [facility] [id number] Univers 00:00:00 00:00:00 Crelula Alfredo PRIMARY 350.1.13.10 ity of [place] [id number] Ne dicil [address] 2019-06-08 2019-06-08 [id number] Univers 15:38:06 23:59:00 KACI ity of [facility] 2019-06-08 2019-06-08 Hospital [facility] [id number] Univers 15:38:00 23:59:00 Encounter Kaci PRIMARY 350.1.13.10 ity of C[place] 4[place]7.2.[place] [id number] Ne dical [address] 2019-06-08 2019-06-08 Office [facility] [id number] Univers 15:31:40 16:14:06 Visit Kaci PRIMARY 350.1.13.10 it y of [place] 4[place]2.7.2.[place] [id number] Ne dical [address] 2019-06-08 2019-06-08 Abstract [facility] [id number] Univers 00:00:00 00:00:00 Kaci PRIMARY 350.1.13.10 it y of [place] 4[place]7.2.[place] [id number] Ne dical [address] 2019-05-28 2019-05-28 Letter Ronit Cruz [id number] Univers 00:00:00 00:00:00 (Out) Claudine Domingo 350.1.13.10 it y of [facility] 4.2.7.2.686 [place] [id number] [address] 2019-05-19 2019-05-25 Emergency Claudine Cruz [id number] Univers 22:38:01 20:00:00 Deshawn Lai 350.1.13.10 ity of Hospital 4.2.7.2.686 [place] [id number] [address] 2019-05-19 2019-05-19 Emergency Jaquelin Velasco [facility] [id number] Univers 19:06:58 21:30:00 Claudine Cruz 350.1.13.10 ity [facility] 4.2.7.2.686 [facility] [id number] [facility] 084 Branch 2019-05-19 2019-05-19 Emergency [facility] [id number] Univers 19:06:58 21:30:00 JAQUELIN montelongo [facility] 2019-05-19 2019-05-19 Emergency X KRISTA [facility] ERT [id number] Univers 19:06:58 19:06:58 JAQUELIN silke [facility] 2019-03-26 2019-03-26 Emergency [facility] JESSEE [id number] 08:21:00 08:21:00 [facility] Results Test Description Test Time Test Comments Results Result [facility] e Comments TISSUE EXAM 2022-08-21 Surgical Pathology Report 17:35:58 Case: [id number] Authorizing Provider: Julio Cesar Salas MD Collected: 08/19/2022 11:43 AM Ordering Location: [facility] OT ENDOSCOPY Received: 08/19/2022 03:55 PM SERVICES Pathologist: Christopher Woods MD Specimen: Biopsy, Gastric, random Immunostain for Helicobacter pylori organisms is NEGATIVE.Addendum electronically signed by Christopher Woods MD on 08/21/2022 at 5:35 PMA. 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 - IMMUNOSTAIN FOR HELICOBACTER PYLORI ORGANISMS WILL BE REPORTED IN AN ADDENDUM. Signing Pathologist Direct Phone Line: [phone] y signed by Christopher Woods MD on 08/20/2022 at 12:30 [id number], [id number]. Biopsy, GastricReceived in formalin labeled with the patient's name, medical record number and "gastric biopsy" are 4 hernández-yellow to hernández-red soft tissue fragments ranging in size from 0.2-0.7 cm, which are submitted in toto in A1.Rupa WeinsteinPerformed. The interpretation of this case included the use of immunohistochemistry or special stains.Control Slides Examined: In-house known positive controls were evaluated along with the test tissue. These control slides run alongside of the patients sample show appropriate staining. Internal positive and negative controls when available are evaluated Immunohistochemistry technical testing was performed at [facility], Pathology Laboratory where it was developed and its performance characteristics were determined. It has not been cleared or approved by the U.S. Food and Drug Administration. The FDA has determined that such clearance or approval is not necessary. The test is used for clinical purposes. It should not be regarded as investigational or for research. This laboratory is certified under the Clinical Laboratory Improvement Amendments of 1988 (CLIA-88) as qualified to perform high complexity clinical laboratory testing. ALPHA FETOPROTEIN (AFP), TUMOR MARKER 2022-08-20 15:25:51 Test Item Value Reference Range Interpretation Comme nts ALPHA-FETOPROTEIN (BEAKER) (test code = 1094) 3.6 ng/mL <10.0 Cartridge Assembling Machine Adjuster ID - ADMINBASIC METABOLIC [id number] 15:02:28 Test Item Value Reference Range Interpretation Comments SODIUM (BEAKER) 142 meq/L 136-145 (test code = 381) POTASSIUM 3.1 meq/L 3.5-5.1 L (BEAKER) (test code = 379) CHLORIDE (BEAKER) 105 meq/L 98-107 (test code = 382) CO2 (BEAKER) 25 meq/L 22-29 (test code = 355) BLOOD UREA 20 mg/dL 7-21 NITROGEN (BEAKER) (test code = 354) CREATININE 1.40 mg/dL 0.57-1.25 H (BEAKER) (test code = 358) GLUCOSE RANDOM 118 mg/dL 70-105 H (BEAKER) (test code = 652) CALCIUM (BEAKER) 8.8 mg/dL 8.4-10.2 (test code = 697) EGFR (BEAKER) 42 Interpretatio n of eGFR (test code = mL/min/1.73 values Stage De scription 1092) sq m Result G1 Katharina l or high >=90 G2 Mildly decreased 60-89 G3a Mildl y to moderately 45-5 9 G3b Moderately to s everely 30-44 G4 Severl y decreased 15-29 G5 Kidney failure <15Reported eGF R is based on the CKD-EPI 2021 equation that d oes not use a race coefficientEsti mated GFR is not as accur ate as Creatinine Lydia milton in predicting glom erular filtration rate . Estimated GFR is not appl icable for dialysis patien ts Cartridge Assembling Machine Adjuster ID - ADMINHEPATIC FUNCTION [id number] 15:02:28 Test Item Value Reference Range Interpretation Comments TOTAL PROTEIN (BEAKER) (test code = 7.6 gm/dL 6.0-8.3 770) ALBUMIN (BEAKER) (test code = 1145) 3.7 g/dL 3.5-5.0 BILIRUBIN TOTAL (BEAKER) (test code 0.4 mg/dL 0.2-1.2 = 377) BILIRUBIN DIRECT (BEAKER) (test 0.2 mg/dL 0.1-0.5 code = 706) ALKALINE PHOSPHATASE (BEAKER) (test 154 U/L 40-150 H code = 346) AST (SGOT) (BEAKER) (test code = 33 U/L 5-34 353) ALT (SGPT) (BEAKER) (test code = 20 U/L 6-55 347) Cartridge Assembling Machine Adjuster ID - ADMINPROTHROMBIN [id number] 14:48:09 Test Item Value Reference Range Interpretation Comments PROTIME (BEAKER) (test code = 14.5 seconds 11.9-14.2 H 759) INR (BEAKER) (test code = 370) 1.20 <=5.90 RECOMMENDED COUMADIN/WARFARIN INR THERAPY RANGESSTANDARD DOSE: 2.0 - 3.0 Includes: PROPHYLAXIS for venous thrombosis, systemic embolization; TREATMENT for venous thrombosis and/or pulmonary embolus.HIGH RISK: Target INR is 2.5-3.5 for patients with mechanical heart valves.CBC W/PLT COUNT & AUTO [id number] 14:37:33 Test Item Value Reference Range Interpretation Comments WHITE BLOOD CELL COUNT (BEAKER) 7.2 K/ L 3.5-10.5 (test code = 775) RED BLOOD CELL COUNT (BEAKER) 4.28 M/ L 3.93-5.22 (test code = 761) HEMOGLOBIN (BEAKER) (test code = 10.7 GM/DL 11.2-15.7 L 410) HEMATOCRIT (BEAKER) (test code = 34.7 % 34.1-44.9 411) MEAN CORPUSCULAR VOLUME (BEAKER) 81 fL 79-95 (test code = 753) MEAN CORPUSCULAR HEMOGLOBIN 25.0 pg 25.6-32.2 L (BEAKER) (test code = 751) MEAN CORPUSCULAR HEMOGLOBIN CONC 30.8 GM/DL 32.2-35.5 L (BEAKER) (test code = 752) RED CELL DISTRIBUTION WIDTH 15.1 % 11.7-14.4 H (BEAKER) (test code = 412) PLATELET COUNT (BEAKER) (test 217 K/CU MM 150-450 code = 756) MEAN PLATELET VOLUME (BEAKER) 10.2 fL 9.4-12.3 (test code = 754) NUCLEATED RED BLOOD CELLS 0 /100 WBC 0-0 (BEAKER) (test code = 413) NEUTROPHILS RELATIVE PERCENT 63 % (BEAKER) (test code = 429) LYMPHOCYTES RELATIVE PERCENT 27 % (BEAKER) (test code = 430) MONOCYTES RELATIVE PERCENT 6 % (BEAKER) (test code = 431) EOSINOPHILS RELATIVE PERCENT 4 % (BEAKER) (test code = 432) BASOPHILS RELATIVE PERCENT 0 % (BEAKER) (test code = 437) NEUTROPHILS ABSOLUTE COUNT 4.47 K/ L 1.56-6.13 (BEAKER) (test code = 670) LYMPHOCYTES ABSOLUTE COUNT 1.96 K/ L 1.18-3.74 (BEAKER) (test code = 414) MONOCYTES ABSOLUTE COUNT (BEAKER) 0.44 K/ L 0.24-0.36 H (test code = 415) EOSINOPHILS ABSOLUTE COUNT 0.25 K/ L 0.04-0.36 (BEAKER) (test code = 416) BASOPHILS ABSOLUTE COUNT (BEAKER) 0.02 K/ L 0.01-0.08 (test code = 417) IMMATURE GRANULOCYTES-RELATIVE 0.10 % 0.00-1.00 PERCENT (BEAKER) (test code = 2801) BODY FLUID CULTURE + GRAM [id number] 14:04:08 Test Item Value Reference Range Interpretation Comments CULTURE (BEAKER) (test code No growth = 1095) GRAM STAIN RESULT (BEAKER) 4+ WBCs (test code = 1123) GRAM STAIN RESULT (BEAKER) No organisms seen (test code = 33513) BODY FLUID CULTURE + GRAM [id number] 14:03:41 Test Item Value Reference Range Interpretation Comments CULTURE (BEAKER) (test code No growth = 1095) GRAM STAIN RESULT (BEAKER) 1+ WBCs (test code = 1123) GRAM STAIN RESULT (BEAKER) No organisms seen (test code = 99315) COMPREHENSIVE METABOLIC [id number] 06:06:52 Test Item Value Reference Range Interpretation Comments TOTAL PROTEIN 7.4 gm/dL 6.0-8.3 (BEAKER) (test code = 770) ALBUMIN (BEAKER) 3.2 g/dL 3.5-5.0 L (test code = 1145) ALKALINE 101 U/L 40-150 PHOSPHATASE (BEAKER) (test code = 346) BILIRUBIN TOTAL 0.3 mg/dL 0.2-1.2 (BEAKER) (test code = 377) SODIUM (BEAKER) 139 meq/L 136-145 (test code = 381) POTASSIUM (BEAKER) 3.8 meq/L 3.5-5.1 (test code = 379) CHLORIDE (BEAKER) 106 meq/L 98-107 (test code = 382) CO2 (BEAKER) (test 23 meq/L 22-29 code = 355) BLOOD UREA 25 mg/dL 7-21 H NITROGEN (BEAKER) (test code = 354) CREATININE 1.13 mg/dL 0.57-1.25 (BEAKER) (test code = 358) GLUCOSE RANDOM 105 mg/dL 70-105 (BEAKER) (test code = 652) CALCIUM (BEAKER) 9.2 mg/dL 8.4-10.2 (test code = 697) AST (SGOT) 18 U/L 5-34 (BEAKER) (test code = 353) ALT (SGPT) 11 U/L 6-55 (BEAKER) (test code = 347) EGFR (BEAKER) 55 Interpretatio n of eGFR (test code = 1092) mL/min/1.[address] age Description sq m Result G1 Katharina l or high >=90 G2 Mildly decreased 60-89 G3a Mildl y to moderately 45-5 9 G3b Moderately to s everely 30-44 G4 Severl y decreased 15-29 G5 Kidney failure <15Reported eGF R is based on the CKD-EPI 2020 equation that d oes not use a race coefficientEsti mated GFR is not as accur ate as Creatinine Lydia rose in predicting glom erular filtration rate . Estimated GFR is not appl icable for dialysis patien ts Cart[employer] Assembling Machine Adjuster ID - ADMINCBC (HEMOGRAM ONLY)2022-07-20 05:01:15 Test Item Value Reference Range Interpretation Comments WHITE BLOOD CELL COUNT (BEAKER) 6.7 K/ L 3.5-10.5 (test code = 775) RED BLOOD CELL COUNT (BEAKER) 3.39 M/ L 3.93-5.22 L (test code = 761) HEMOGLOBIN (BEAKER) (test code = 9.6 GM/DL 11.2-15.7 L 410) HEMATOCRIT (BEAKER) (test code = 29.9 % 34.1-44.9 L 411) MEAN CORPUSCULAR VOLUME (BEAKER) 88 fL 79-95 (test code = 753) MEAN CORPUSCULAR HEMOGLOBIN 28.3 pg 25.6-32.2 (BEAKER) (test code = 751) MEAN CORPUSCULAR HEMOGLOBIN CONC 32.1 GM/DL 32.2-35.5 L (BEAKER) (test code = 752) RED CELL DISTRIBUTION WIDTH 13.4 % 11.7-14.4 (BEAKER) (test code = 412) PLATELET COUNT (BEAKER) (test 201 K/CU MM 150-450 code = 756) MEAN PLATELET VOLUME (BEAKER) 10.1 fL 9.4-12.3 (test code = 754) NUCLEATED RED BLOOD CELLS 0 /100 WBC 0-0 (BEAKER) (test code = 413) COMPREHENSIVE METABOLIC [id number] 16:45:32 Test Item Value Reference Range Interpretation Comments TOTAL PROTEIN 7.9 gm/dL 6.0-8.3 (BEAKER) (test code = 770) ALBUMIN (BEAKER) 3.4 g/dL 3.5-5.0 L (test code = 1145) ALKALINE 121 U/L 40-150 PHOSPHATASE (BEAKER) (test code = 346) BILIRUBIN TOTAL 0.3 mg/dL 0.2-1.2 (BEAKER) (test code = 377) SODIUM (BEAKER) 139 meq/L 136-145 (test code = 381) POTASSIUM (BEAKER) 3.8 meq/L 3.5-5.1 (test code = 379) CHLORIDE (BEAKER) 105 meq/L 98-107 (test code = 382) CO2 (BEAKER) (test 24 meq/L 22-29 code = 355) BLOOD UREA 25 mg/dL 7-21 H NITROGEN (BEAKER) (test code = 354) CREATININE 1.21 mg/dL 0.57-1.25 (BEAKER) (test code = 358) GLUCOSE RANDOM 150 mg/dL 70-105 H (BEAKER) (test code = 652) CALCIUM (BEAKER) 9.5 mg/dL 8.4-10.2 (test code = 697) AST (SGOT) 20 U/L 5-34 (BEAKER) (test code = 353) ALT (SGPT) 11 U/L 6-55 (BEAKER) (test code = 347) EGFR (BEAKER) 50 Interpretatio n of eGFR (test code = 1092) mL/min/1.[address] age Description sq m Result G1 Katharina l or high >=90 G2 Mildly decreased 60-89 G3a Mildl y to moderately 45-5 9 G3b Moderately to s everely 30-44 G4 Severl y decreased 15-29 G5 Kidney failure <15Reported eGF R is based on the CKD-EPI 2020 equation that d oes not use a race coefficientEsti mated GFR is not as accur ate as Creatinine Lydia milton in predicting glom erular filtration rate . Estimated GFR is not appl icable for dialysis patien ts Cartridge Assembling Machine Adjuster ID - BSCBC (HEMOGRAM ONLY)2022-07-19 16:28:59 Test Item Value Reference Range Interpretation Comments WHITE BLOOD CELL COUNT (BEAKER) 9.3 K/ L 3.5-10.5 (test code = 775) RED BLOOD CELL COUNT (BEAKER) 3.48 M/ L 3.93-5.22 L (test code = 761) HEMOGLOBIN (BEAKER) (test code = 9.9 GM/DL 11.2-15.7 L 410) HEMATOCRIT (BEAKER) (test code = 30.5 % 34.1-44.9 L 411) MEAN CORPUSCULAR VOLUME (BEAKER) 88 fL 79-95 (test code = 753) MEAN CORPUSCULAR HEMOGLOBIN 28.4 pg 25.6-32.2 (BEAKER) (test code = 751) MEAN CORPUSCULAR HEMOGLOBIN CONC 32.5 GM/DL 32.2-35.5 (BEAKER) (test code = 752) RED CELL DISTRIBUTION WIDTH 13.6 % 11.7-14.4 (BEAKER) (test code = 412) PLATELET COUNT (BEAKER) (test 234 K/CU MM 150-450 code = 756) MEAN PLATELET VOLUME (BEAKER) 10.3 fL 9.4-12.3 (test code = 754) NUCLEATED RED BLOOD CELLS 0 /100 WBC 0-0 (BEAKER) (test code = 413) HEPATITIS B PCR, [id number] 14:15:57 Test Item Value Reference Range Interpretation Comments HBV RESULT COMPONENT HBV DNA not detected HBV DNA not detected (BEAKER) (test code = 2701) HEPATITIS B PCR, [id number] 14:15:57 Test Item Value Reference Range Interpretation Comments HBV RESULT COMPONENT HBV DNA not detected HBV DNA not detected (BEAKER) (test code = 2701) COMPREHENSIVE METABOLIC [id number] 06:31:03 Test Item Value Reference Range Interpretation Comments TOTAL PROTEIN 8.0 gm/dL 6.0-8.3 Specimen sligh tly (BEAKER) (test hemolyzed code = 770) ALBUMIN (BEAKER) 3.2 g/dL 3.5-5.0 L Specimen sl ightly (test code = 1145) hemolyzed ALKALINE 114 U/L 40-150 PHOSPHATASE (BEAKER) (test code = 346) BILIRUBIN TOTAL 0.3 mg/dL 0.2-1.2 Specimen sli ghtly (BEAKER) (test hemolyzed code = 377) SODIUM (BEAKER) 135 meq/L 136-145 L (test code = 381) POTASSIUM (BEAKER) 4.2 meq/L 3.5-5.1 Specimen slightly (test code = 379) hemolyzed CHLORIDE (BEAKER) 104 meq/L 98-107 (test code = 382) CO2 (BEAKER) (test 23 meq/L 22-29 code = 355) BLOOD UREA 20 mg/dL 7-21 NITROGEN (BEAKER) (test code = 354) CREATININE 1.12 mg/dL 0.57-1.25 Specimen slight ly (BEAKER) (test hemolyzed code = 358) GLUCOSE RANDOM 164 mg/dL 70-105 H (BEAKER) (test code = 652) CALCIUM (BEAKER) 9.2 mg/dL 8.4-10.2 (test code = 697) AST (SGOT) 27 U/L 5-34 Specimen slight ly (BEAKER) (test hemolyzed code = 353) ALT (SGPT) 12 U/L 6-55 Specimen slight ly (BEAKER) (test hemolyzed code = 347) EGFR (BEAKER) 55 Interpretatio n of eGFR (test code = 1092) mL/min/1.[address] age Description sq m Result G1 Katharina l or high >=90 G2 Mildly decreased 60-89 G3a Mildl y to moderately 45- 59 G3b Moderately to s everely 30-44 G4 Severl y decreased 15-29 G5 Kidney failure <15Reported eGF R is based on the CKD-EPI 2021 equation that d oes not use a race coefficientEsti mated GFR is not as accur ate as Creatinine Lydia milton in predicting glom erular filtration rate . Estimated GFR is not appl icable for dialysis patien ts Cartridge Assembling Machine Adjuster ID - MMCBC W/PLT COUNT & AUTO [id number] 06:12:20 Test Item Value Reference Range Interpretation Comments WHITE BLOOD CELL COUNT (BEAKER) 7.1 K/ L 3.5-10.5 (test code = 775) RED BLOOD CELL COUNT (BEAKER) 3.57 M/ L 3.93-5.22 L (test code = 761) HEMOGLOBIN (BEAKER) (test code = 10.1 GM/DL 11.2-15.7 L 410) HEMATOCRIT (BEAKER) (test code = 31.8 % 34.1-44.9 L 411) MEAN CORPUSCULAR VOLUME (BEAKER) 89 fL 79-95 (test code = 753) MEAN CORPUSCULAR HEMOGLOBIN 28.3 pg 25.6-32.2 (BEAKER) (test code = 751) MEAN CORPUSCULAR HEMOGLOBIN CONC 31.8 GM/DL 32.2-35.5 L (BEAKER) (test code = 752) RED CELL DISTRIBUTION WIDTH 13.5 % 11.7-14.4 (BEAKER) (test code = 412) PLATELET COUNT (BEAKER) (test 214 K/CU MM 150-450 code = 756) MEAN PLATELET VOLUME (BEAKER) 9.9 fL 9.4-12.3 (test code = 754) NUCLEATED RED BLOOD CELLS 0 /100 WBC 0-0 (BEAKER) (test code = 413) NEUTROPHILS RELATIVE PERCENT 87 % (BEAKER) (test code = 429) LYMPHOCYTES RELATIVE PERCENT 11 % (BEAKER) (test code = 430) MONOCYTES RELATIVE PERCENT 1 % (BEAKER) (test code = 431) EOSINOPHILS RELATIVE PERCENT 0 % (BEAKER) (test code = 432) BASOPHILS RELATIVE PERCENT 0 % (BEAKER) (test code = 437) NEUTROPHILS ABSOLUTE COUNT 6.22 K/ L 1.56-6.13 H (BEAKER) (test code = 670) LYMPHOCYTES ABSOLUTE COUNT 0.78 K/ L 1.18-3.74 L (BEAKER) (test code = 414) MONOCYTES ABSOLUTE COUNT (BEAKER) 0.09 K/ L 0.24-0.36 L (test code = 415) EOSINOPHILS ABSOLUTE COUNT 0.00 K/ L 0.04-0.36 L (BEAKER) (test code = 416) BASOPHILS ABSOLUTE COUNT (BEAKER) 0.01 K/ L 0.01-0.08 (test code = 417) IMMATURE GRANULOCYTES-RELATIVE 0.30 % 0.00-1.00 PERCENT (BEAKER) (test code = 2801) BODY FLUID [id number] 13:24:30 Test Item Value Reference Range Interpretation Comments CRYSTALS, BODY FLUID Uric acid crystals (BEAKER) (test code = present. 2165) QUANTITY SEEN (BEAKER) Few (test code = 2166) [id number] Smiley M.D. (BEAKER) (test code = (electonic signature) 2607) BODY FLUID [id number] 13:23:53 Test Item Value Reference Range Interpretation Comments CRYSTALS, BODY FLUID Uric acid crystals (BEAKER) (test code = present. 2165) QUANTITY SEEN (BEAKER) Few (test code = 2166) [id number] Smiley M.D. (BEAKER) (test code = (electonic signature) 2607) BODY FLUID CELL COUNT WITH [id number] 10:22:34 Test Item Value Reference Range Interpretation Comments APPEARANCE FLUID (BEAKER) (test Bloody Clear A code = 510) COLOR FLUID (BEAKER) (test code Red Colorless, Straw A = 511) RBC FLUID (BEAKER) (test code = 80671 /cu mm <=1 H 513) TOTAL NUCLEATED CELL COUNT 800 /cu mm <=5 H (BEAKER) (test code = 1442) LINING CELLS/OTHERS DIFF'D 0 (BEAKER) (test code = 1589) ADJUSTED WBC FLUID (BEAKER) 800 /cu mm <=5 H (test code = 1691) LINING CELLS/OTHERS, CALCULATED 0 /cu mm <=1 (BEAKER) (test code = 1590) NEUTROPHILS FLUID (BEAKER) 89 % (test code = 1656) LYMPHS FLUID (BEAKER) (test 1 % code = 488) MONO/MACROPHAGE FLUID (BEAKER) 10 % (test code = 489) EOSINOPHILS FLUID (BEAKER) 0 % (test code = 491) BASO FLUID (BEAKER) (test code 0 % = 492) CONTAINER BODY FLUID (BEAKER) EDTA Tube (test code = 2873) BODY FLUID CELL COUNT WITH [id number] 10:22:09 Test Item Value Reference Range Interpretation Comments APPEARANCE FLUID (BEAKER) (test Turbid Clear A code = 510) COLOR FLUID (BEAKER) (test code Kaila Colorless, Straw A = 511) RBC FLUID (BEAKER) (test code = 32 /cu mm <=1 H 513) TOTAL NUCLEATED CELL COUNT 1250 /cu mm <=5 H (BEAKER) (test code = 1442) LINING CELLS/OTHERS DIFF'D 0 (BEAKER) (test code = 1589) ADJUSTED WBC FLUID (BEAKER) 1250 /cu mm <=5 H (test code = 1691) LINING CELLS/OTHERS, CALCULATED 0 /cu mm <=1 (BEAKER) (test code = 1590) NEUTROPHILS FLUID (BEAKER) (test 97 % code = 1656) LYMPHS FLUID (BEAKER) (test code 3 % = 488) MONO/MACROPHAGE FLUID (BEAKER) 0 % (test code = 489) EOSINOPHILS FLUID (BEAKER) (test 0 % code = 491) BASO FLUID (BEAKER) (test code = 0 % 492) CONTAINER BODY FLUID (BEAKER) EDTA Tube (test code = 2873) CT, [id number] 01:30:00Unlisted Reason for Exam - Click Yes and Enter Reason Below->YesUnlisted Reason for Exam->Leg painProtocol Please Specify:->Standard ProtocolWill this procedure require oral contrast?->No [facility] : 1960 Sex: FFINAL REPORT CT ABDOMEN WITH CONTRAST, CT PELVIS WITH CONTRAST HISTORY: Flankpain COMPARISON: No prior comparison imaging of the abdomen or pelvis is available TECHNIQUE: CT of the abdomen and pelvis was performed with intravenous contrast. The examination was performed to conform to our departmental dose optimization program which includes automated exposure control, adjustment of the mA and/or kV according to patient size and/or use of iterative reconstruction techniques. FINDINGS: Lung bases clear aside from linear scar versus subsegmental atelectasis at the left lateral lung base. No pleural or pericardial effusions. No CT abnormalities are visualized in the liver, gallb ladder, spleen, pancreas, adrenal glands, or right kidney. Indeterminate 1.1 cm hypodense lesion in the lower pole the left kidney, with Hounsfield units of 30. This may represent a hyperdense cyst although more definitive characterization could be performed with pre and postcontrast MRI or CT of the abdomen. No urinary tract calculi are visualized. No hydronephrosis or hydroureter. The bladder is unremarkable. No dilated loops of large or small bowel. No free air is visualized. The appendix is normal in caliber, with no surrounding inflammatory change. No gastric distention. No uterine or adnexal abnormality is seen. No abdominal aortic aneurysm. Aortic and iliac artery calcifications are present. Moderate L2 and T11 compression fractures. Mild to moderate fracture retropulsion involving the superior endplate of T11. Advanced disc space narrowing at L2-L3 associated with mild L2 retrolisthesis.If evaluation of the acuity of these fractures is desired, an MRI could be obtained. IMPRESSION: 1. N o acute CT abnormalities are identified in the abdomen or pelvis. 2. Moderate T11 and L2 compressionfractures. No comparison imaging is available to determine the acuity of these fractures. Signed: Maria R Marrufo Verified Date/Time: 07/18/2022 01:30:00 CT, EXTREMITY, LOWER, WITH CONTRAST, [id number] 01:01:[address] down to feetUnlisted Reason for Exam - Click Yes and Enter Reason Below->NoPlease specify:->FootPlease specify:->AnklePlease specify:->Tibia/FibulaPlease specify:->KneePlease specify:->Femur [facility] : 1960 Sex: FFINAL REPORT CT OF THE RIGHT LOWER EXTREMITY WITH CONTRAST HISTORY: Soft tissue infection COMPARISONS: Radiographs of the right knee, leg, ankle and foot of the same date TECHNIQUE: CT of the right lower extremity was performed with intravenous contrast. The lower extreme was imaged from a level just proximal to the right hip joint line to the level of the right foot. Axial image s were generated as were multiplanar reformatted images in the coronal and sagittal planes. The examination was performed to conform to our departmental dose optimization program which includes automated exposure control, adjustment of the mA and/or kV according to patient size and/or use of iterative reconstruction techniques. FINDINGS: Bone detail, particularly on the coronal and sagittal reformatted images, is limited by the large [id number] imaged. No fracture or bone destruction are visualized in the right hip, right femur, right knee, right leg, right ankle, or right foot. There are degenerative changes in the right knee, right ankle, and midfoot. No focal bony destruction is visualized. No right hip joint effusion is appreciated. No greater trochanteric bursal fluid. A moderate right knee joint effusion is present. No popliteal cyst. There is increased fluid in the anterior tibialis tendon sheath at the level of the ankle suggestive of anterior tibialis tenosynovitis. There is subcutaneous edema in the leg, ankle, and foot. No discrete soft tissue abscess is visualized on this examination. No soft tissue gas or radiopaque foreign body are identified. IMPRESSION: 1. No soft tissue abscess is visualized in the right lower extremity. 2. Moderate knee joint effusion. 3. Subcutaneous edema in the right leg, ankle, and foot. 4. Changes of osteoarthritis in the ankle, knee, and midfoot. No bony destruction is visualized. Signed: Maria R Marrufo MDReport Verified Date/Time: 07/18/2022 01:01:52 URINALYSIS W/ REFLEX URINE CULTURE 2022-07-17 19:37:37 Test Item Value Reference Range Interpretation Comments COLOR (BEAKER) (test code = 470) Yellow CLARITY (BEAKER) (test code = 469) Clear SPECIFIC GRAVITY UA (BEAKER) (test 1.010 1.001-1.035 code = 468) PH UA (BEAKER) (test code = 467) 6.5 5.0-8.0 PROTEIN UA (BEAKER) (test code = Negative Negative 464) GLUCOSE UA (BEAKER) (test code = Negative Negative 365) KETONES UA (BEAKER) (test code = Negative Negative 371) BILIRUBIN UA (BEAKER) (test code = Negative Negative 462) BLOOD UA (BEAKER) (test code = 461) Trace Negative A NITRITE UA (BEAKER) (test code = Negative Negative 465) LEUKOCYTE ESTERASE UA (BEAKER) (test Large Negative A code = 466) UROBILINOGEN UA (BEAKER) (test code 0.2 0.2-1.0 = 463) RBC UA (BEAKER) (test code = 519) 10 /HPF WBC UA (BEAKER) (test code = 520) 18 /HPF BACTERIA (BEAKER) (test code = 517) Rare SQUAMOUS EPITHELIAL (BEAKER) (test 5 /HPF code = 516) HYALINE CASTS (BEAKER) (test code = 1 /LPF 514) SOURCE(BEAKER) (test code = 2795) Cartridge Assembling Machine Adjuster ID - [auto]Cartridge Assembling Machine Adjuster ID - techCREATINE KINASE (CK)2022-07-17 18:23:12 Test Item Value Reference Range Interpretation Comments CREATINE KINASE TOTAL (BEAKER) (test 36 U/L 29-200 code = 380) Cartridge Assembling Machine Adjuster ID - DBCAROLE WHITE, [id number] 17:14:00Reason for exam:->LEG PAINReason for exam:->[facility] : 1960 Sex: FFINAL REPORT Right knee dated partial today Comment: 2 views of the right kneewere submitted for interpretation. No fracture, dislocation, or subluxation seen in the right knee. Mild degenerative changes in the right knee with marginal osteophyte formation. Soft tissue fullness is seen in the suprapatellar bursa suggesting effusion. There is subcutaneous is edema in the right knee. Impression: Degenerative changes with suprapatellar effusion and subcutaneous edema. Right leg dated 07/17/2022 Clinical Information: LEG PAINEDEMA Comment: 4 views of the right leg were submitted for interpretation. There is generalized osteopenia. The right tibia and fibular are intact without fracture. Soft tissue the right leg is unremarkable. No soft tissue laceration or radiopaque foreign body present. Impression: No fracture in the right leg. Right ankle dated 07/17/2022 Clinical Information:LEG PAINEDEMA Comment: 3 views of the right ankle were submitted for interpretation. There is generalized osteopenia. No fracture, dislocation, or subluxation seen in the right ankle. Ankle mortise, medial and the lateral malleolus are intact. Soft tissue swollen is seen in the right ankle worse laterally. Impression: Soft tissues swelling in the right ankle without fracture. Right foot dated 07/17/2022 Clinical Information: LEG PAINEDEMA Comment: 3 views of the right foot were submitted for interpretation. Tarsal, metatarsal, and phalangeal bones are intact without fracture. Soft tissue swollen is seen in the right foot. No soft tissue laceration or radiopaque foreign body noted. Impression: Soft tissue swelling in the right foot without fracture. Signed: Demetrio Amador MDReport Verified Date/Time: 07/17/2022 17:14:30 RAD, ANKLE, MIN 3 VIEWS, [id number] 17:14:00Reason for exam:->LEG PAINReason for exam:->[facility] : 1960 Sex: FFINAL REPORT Right knee dated partial today Comment: 2 views of the right kneewere submitted for interpretation. No fracture, dislocation, or subluxation seen in the right knee. Mild degenerative changes in the right knee with marginal osteophyte formation. Soft tissue fullness is seen in the suprapatellar bursa suggesting effusion. There is subcutaneous is edema in the right knee. Impression: Degenerative changes with suprapatellar effusion and subcutaneous edema. Right leg dated 07/17/2022 Clinical Information: LEG PAINEDEMA Comment: 4 views of the right leg were submitted for interpretation. There is generalized osteopenia. The right tibia and fibular are intact without fracture. Soft tissue the right leg is unremarkable. No soft tissue laceration or radiopaque foreign body present. Impression: No fracture in the right leg. Right ankle dated 07/17/2022 Clinical Information:LEG PAINEDEMA Comment: 3 views of the right ankle were submitted for interpretation. There is generalized osteopenia. No fracture, dislocation, or subluxation seen in the right ankle. Ankle mortise, medial and the lateral malleolus are intact. Soft tissue swollen is seen in the right ankle worse laterally. Impression: Soft tissues swelling in the right ankle without fracture. Right foot dated 07/17/2022 Clinical Information: LEG PAINEDEMA Comment: 3 views of the right foot were submitted for interpretation. Tarsal, metatarsal, and phalangeal bones are intact without fracture. Soft tissue swollen is seen in the right foot. No soft tissue laceration or radiopaque foreign body noted. Impression: Soft tissue swelling in the right foot without fracture. Signed: Demetrio Amador [facility] Verified Date/Time: 07/17/2022 17:14:30 RAD, FOOT, MIN 3 VIEWS, [id number] 17:14:00Reason for exam:->LEG PAINReason for exam:->[facility] : 1960 Sex: FFINAL REPORT Right knee dated partial today Comment: 2 views of the right kneewere submitted for interpretation. No fracture, dislocation, or subluxation seen in the right knee. Mild degenerative changes in the right knee with marginal osteophyte formation. Soft tissue fullness is seen in the suprapatellar bursa suggesting effusion. There is subcutaneous is edema in the right knee. Impression: Degenerative changes with suprapatellar effusion and subcutaneous edema. Right leg dated 07/17/2022 Clinical Information: LEG PAINEDEMA Comment: 4 views of the right leg were submitted for interpretation. There is generalized osteopenia. The right tibia and fibular are intact without fracture. Soft tissue the right leg is unremarkable. No soft tissue laceration or radiopaque foreign body present. Impression: No fracture in the right leg. Right ankle dated 07/17/2022 Clinical Information:LEG PAINEDEMA Comment: 3 views of the right ankle were submitted for interpretation. There is generalized osteopenia. No fracture, dislocation, or subluxation seen in the right ankle. Ankle mortise, medial and the lateral malleolus are intact. Soft tissue swollen is seen in the right ankle worse laterally. Impression: Soft tissues swelling in the right ankle without fracture. Right foot dated 07/17/2022 Clinical Information: LEG PAINEDEMA Comment: 3 views of the right foot were submitted for interpretation. Tarsal, metatarsal, and phalangeal bones are intact without fracture. Soft tissue swollen is seen in the right foot. No soft tissue laceration or radiopaque foreign body noted. Impression: Soft tissue swelling in the right foot without fracture. Signed: Demetrio Amador [facility] Verified Date/Time: 07/17/2022 17:14:30 RAD, KNEE, 1 OR 2 VIEWS, [id number] 17:14:00Reason for exam:->LEG PAINReason for exam:->[facility] ABDIRAHMANPHAN MATHIS : 1960 Sex: FFINAL REPORT Right knee dated partial today Comment: 2 views of the right kneewere submitted for interpretation. No fracture, dislocation, or subluxation seen in the right knee. Mild degenerative changes in the right knee with marginal osteophyte formation. Soft tissue fullness is seen in the suprapatellar bursa suggesting effusion. There is subcutaneous is edema in the right knee. Impression: Degenerative changes with suprapatellar effusion and subcutaneous edema. Right leg dated 07/17/2022 Clinical Information: LEG PAINEDEMA Comment: 4 views of the right leg were submitted for interpretation. There is generalized osteopenia. The right tibia and fibular are intact without fracture. Soft tissue the right leg is unremarkable. No soft tissue laceration or radiopaque foreign body present. Impression: No fracture in the right leg. Right ankle dated 07/17/2022 Clinical Information:LEG PAINEDEMA Comment: 3 views of the right ankle were submitted for interpretation. There is generalized osteopenia. No fracture, dislocation, or subluxation seen in the right ankle. Ankle mortise, medial and the lateral malleolus are intact. Soft tissue swollen is seen in the right ankle worse laterally. Impression: Soft tissues swelling in the right ankle without fracture. Right foot dated 07/17/2022 Clinical Information: LEG PAINEDEMA Comment: 3 views of the right foot were submitted for interpretation. Tarsal, metatarsal, and phalangeal bones are intact without fracture. Soft tissue swollen is seen in the right foot. No soft tissue laceration or radiopaque foreign body noted. Impression: Soft tissue swelling in the right foot without fracture. Signed: Demetrio Amador [facility] Verified Date/Time: 07/17/2022 17:14:30 [place]HENSIVE METABOL[place] [id number] 16:46:58 Test Item Value Reference Range Interpretation Comments TOTAL PROTEIN 7.8 gm/dL 6.0-8.3 (BEAKER) (test code = 770) ALBUMIN (BEAKER) 3.4 g/dL 3.5-5.0 L (test code = 1145) ALKALINE 115 U/L 40-150 PHOSPHATASE (BEAKER) (test code = 346) BILIRUBIN TOTAL 0.7 mg/dL 0.2-1.2 (BEAKER) (test code = 377) SODIUM (BEAKER) 136 meq/L 136-145 (test code = 381) POTASSIUM (BEAKER) 3.3 meq/L 3.5-5.1 L (test code = 379) CHLORIDE (BEAKER) 104 meq/L 98-107 (test code = 382) CO2 (BEAKER) (test 22 meq/L 22-29 code = 355) BLOOD UREA 14 mg/dL 7-21 NITROGEN (BEAKER) (test code = 354) CREATININE 1.02 mg/dL 0.57-1.25 (BEAKER) (test code = 358) GLUCOSE RANDOM 123 mg/dL 70-105 H (BEAKER) (test code = 652) CALCIUM (BEAKER) 9.2 mg/dL 8.4-10.2 (test code = 697) AST (SGOT) 20 U/L 5-34 (BEAKER) (test code = 353) ALT (SGPT) 13 U/L 6-55 (BEAKER) (test code = 347) EGFR (BEAKER) 62 Interpretatio n of eGFR (test code = 1092) mL/min/1.[address] age Description sq m Result G1 Katharina l or high >=90 G2 Mildly decreased 60-89 G3a Mildl y to moderately 45-5 9 G3b Moderately to s everely 30-44 G4 Severl y decreased 15-29 G5 Kidne y failure <15Reported eGF R is based on the CKD-EPI 2021 equation that d oes not use a race coefficientEsti mated GFR is not as accur ate as Creatinine Lydia rose in predicting glom erular filtration rate . Estimated GFR is not appl icable for dialysis patien ts Cartridge [employer]sembling Machine Adjuster ID - ADMINC-REACTIVE [id number] 16:46:58 Test Item Value Reference Range Interpretation Comments C-REACTIVE PROTEIN (BEAKER) (test 1.88 mg/dL 0.00-0.50 H code = 676) Cartridge Assembling Machine Adjuster ID - ADMINLACTIC ACID, [id number] 16:44:38 Test Item Value Reference Range Interpretation Comments LACTATE BLOOD VENOUS (2) (BEAKER) 1.16 mmol/L 0.50-2.00 (test code = 4222) Cartridge Assembling Machine Adjuster ID - ADMINPROTHROMBIN [id number] 16:21:18 Test Item Value Reference Range Interpretation Comments PROTIME (BEAKER) (test code = 15.4 seconds 11.9-14.2 H 759) INR (BEAKER) (test code = 370) 1.30 <=5.90 RECOMMENDED COUMADIN/WARFARIN INR THERAPY RANGESSTANDARD DOSE: 2.0 - 3.0 Includes: PROPHYLAXIS for venous thrombosis, systemic embolization; TREATMENT for venous thrombosis and/or pulmonary embolus.HIGH RISK: Target INR is 2.5-3.5 for patients with mechanical heart valves.CBC W/PLT COUNT & AUTO [id number] 16:10:43 Test Item Value Reference Range Interpretation Comments WHITE BLOOD CELL COUNT (BEAKER) 9.2 K/ L 3.5-10.5 (test code = 775) RED BLOOD CELL COUNT (BEAKER) 3.47 M/ L 3.93-5.22 L (test code = 761) HEMOGLOBIN (BEAKER) (test code = 10.0 GM/DL 11.2-15.7 L 410) HEMATOCRIT (BEAKER) (test code = 31.1 % 34.1-44.9 L 411) MEAN CORPUSCULAR VOLUME (BEAKER) 90 fL 79-95 (test code = 753) MEAN CORPUSCULAR HEMOGLOBIN 28.8 pg 25.6-32.2 (BEAKER) (test code = 751) MEAN CORPUSCULAR HEMOGLOBIN CONC 32.2 GM/DL 32.2-35.5 (BEAKER) (test code = 752) RED CELL DISTRIBUTION WIDTH 14.1 % 11.7-14.4 (BEAKER) (test code = 412) PLATELET COUNT (BEAKER) (test 203 K/CU MM 150-450 code = 756) MEAN PLATELET VOLUME (BEAKER) 9.8 fL 9.4-12.3 (test code = 754) NUCLEATED RED BLOOD CELLS 0 /100 WBC 0-0 (BEAKER) (test code = 413) NEUTROPHILS RELATIVE PERCENT 69 % (BEAKER) (test code = 429) LYMPHOCYTES RELATIVE PERCENT 22 % (BEAKER) (test code = 430) MONOCYTES RELATIVE PERCENT 8 % (BEAKER) (test code = 431) EOSINOPHILS RELATIVE PERCENT 0 % (BEAKER) (test code = 432) BASOPHILS RELATIVE PERCENT 0 % (BEAKER) (test code = 437) NEUTROPHILS ABSOLUTE COUNT 6.28 K/ L 1.56-6.13 H (BEAKER) (test code = 670) LYMPHOCYTES ABSOLUTE COUNT 2.02 K/ L 1.18-3.74 (BEAKER) (test code = 414) MONOCYTES ABSOLUTE COUNT (BEAKER) 0.77 K/ L 0.24-0.36 H (test code = 415) EOSINOPHILS ABSOLUTE COUNT 0.02 K/ L 0.04-0.36 L (BEAKER) (test code = 416) BASOPHILS ABSOLUTE COUNT (BEAKER) 0.04 K/ L 0.01-0.08 (test code = 417) IMMATURE GRANULOCYTES-RELATIVE 0.30 % 0.00-1.00 PERCENT (BEAKER) (test code = 2801) HIV-1 ANTIGEN WITH HIV-1/2 [id number] 14:07:49 Test Item Value Reference Range Interpretation Comments HIV-1 ANTIGEN WITH HIV 1\\T\\2 Nonreactive Nonreactive ANTIBODY (2) (BEAKER) (test code = 2586) Cartridge Assembling Machine Adjuster ID - ADMINHEPATIC FUNCTION [id number] 13:43:03 Test Item Value Reference Range Interpretation Comments TOTAL PROTEIN (BEAKER) (test code = 8.7 gm/dL 6.0-8.3 H 770) ALBUMIN (BEAKER) (test code = 1145) 3.8 g/dL 3.5-5.0 BILIRUBIN TOTAL (BEAKER) (test code 0.6 mg/dL 0.2-1.2 = 377) BILIRUBIN DIRECT (BEAKER) (test 0.3 mg/dL 0.1-0.5 code = 706) ALKALINE PHOSPHATASE (BEAKER) (test 146 U/L 40-150 code = 346) AST (SGOT) (BEAKER) (test code = 21 U/L 5-34 353) ALT (SGPT) (BEAKER) (test code = 14 U/L 6-55 347) Cartridge Assembling Machine Adjuster ID - ADMINBASIC METABOLIC [id number] 13:43:02 Test Item Value Reference Range Interpretation Comments SODIUM (BEAKER) 139 meq/L 136-145 (test code = 381) POTASSIUM 3.3 meq/L 3.5-5.1 L (BEAKER) (test code = 379) CHLORIDE (BEAKER) 103 meq/L 98-107 (test code = 382) CO2 (BEAKER) 25 meq/L 22-29 (test code = 355) BLOOD UREA 13 mg/dL 7-21 NITROGEN (BEAKER) (test code = 354) CREATININE 1.09 mg/dL 0.57-1.25 (BEAKER) (test code = 358) GLUCOSE RANDOM 114 mg/dL 70-105 H (BEAKER) (test code = 652) CALCIUM (BEAKER) 9.9 mg/dL 8.4-10.2 (test code = 697) EGFR (BEAKER) 57 Interpretatio n of eGFR (test code = mL/min/1.73 values Stage De scription 1092) sq m Result G1 Katharina l or high >=90 G2 Mildly decreased 60-89 G3a Mildl y to moderately 45-5 9 G3b Moderately to s everely 30-44 G4 Severl y decreased 15-29 G5 Kidney failure <15Reported eGF R is based on the CKD-EPI 2020 equation that d oes not use a race coefficientEsti mated GFR is not as accur ate as Creatinine Lydia milton in predicting glom erular filtration rate . Estimated GFR is not appl icable for dialysis patien ts Cartridge Assembling Machine Adjuster ID - ADMINPROTHROMBIN [id number] 13:33:36 Test Item Value Reference Range Interpretation Comments PROTIME (BEAKER) (test code = 15.0 seconds 11.9-14.2 H 759) INR (BEAKER) (test code = 370) 1.26 <=5.90 RECOMMENDED COUMADIN/WARFARIN INR THERAPY RANGESSTANDARD DOSE: 2.0 - 3.0 Includes: PROPHYLAXIS for venous thrombosis, systemic embolization; TREATMENT for venous thrombosis and/or pulmonary embolus.HIGH RISK: Target INR is 2.5-3.5 for patients with mechanical heart valves.CBC W/PLT COUNT & AUTO [id number] 13:26:29 Test Item Value Reference Range Interpretation Comments WHITE BLOOD CELL COUNT (BEAKER) 10.1 K/ L 3.5-10.5 (test code = 775) RED BLOOD CELL COUNT (BEAKER) 3.90 M/ L 3.93-5.22 L (test code = 761) HEMOGLOBIN (BEAKER) (test code = 11.0 GM/DL 11.2-15.7 L 410) HEMATOCRIT (BEAKER) (test code = 34.7 % 34.1-44.9 411) MEAN CORPUSCULAR VOLUME (BEAKER) 89 fL 79-95 (test code = 753) MEAN CORPUSCULAR HEMOGLOBIN 28.2 pg 25.6-32.2 (BEAKER) (test code = 751) MEAN CORPUSCULAR HEMOGLOBIN CONC 31.7 GM/DL 32.2-35.5 L (BEAKER) (test code = 752) RED CELL DISTRIBUTION WIDTH 14.0 % 11.7-14.4 (BEAKER) (test code = 412) PLATELET COUNT (BEAKER) (test 234 K/CU MM 150-450 code = 756) MEAN PLATELET VOLUME (BEAKER) 9.8 fL 9.4-12.3 (test code = 754) NUCLEATED RED BLOOD CELLS 0 /100 WBC 0-0 (BEAKER) (test code = 413) NEUTROPHILS RELATIVE PERCENT 66 % (BEAKER) (test code = 429) LYMPHOCYTES RELATIVE PERCENT 24 % (BEAKER) (test code = 430) MONOCYTES RELATIVE PERCENT 9 % (BEAKER) (test code = 431) EOSINOPHILS RELATIVE PERCENT 0 % (BEAKER) (test code = 432) BASOPHILS RELATIVE PERCENT 0 % (BEAKER) (test code = 437) NEUTROPHILS ABSOLUTE COUNT 6.67 K/ L 1.56-6.13 H (BEAKER) (test code = 670) LYMPHOCYTES ABSOLUTE COUNT 2.43 K/ L 1.18-3.74 (BEAKER) (test code = 414) MONOCYTES ABSOLUTE COUNT (BEAKER) 0.92 K/ L 0.24-0.36 H (test code = 415) EOSINOPHILS ABSOLUTE COUNT 0.04 K/ L 0.04-0.36 (BEAKER) (test code = 416) BASOPHILS ABSOLUTE COUNT (BEAKER) 0.04 K/ L 0.01-0.08 (test code = 417) IMMATURE GRANULOCYTES-RELATIVE 0.40 % 0.00-1.00 PERCENT (BEAKER) (test code = 2801) COMPREHENSIVE METABOLIC [id number] 06:07:09 Test Item Value Reference Range Interpretation Comments TOTAL PROTEIN 5.6 gm/dL 6.0-8.3 L (BEAKER) (test code = 770) ALBUMIN (BEAKER) 2.9 g/dL 3.5-5.0 L (test code = 1145) ALKALINE 130 U/L 40-150 PHOSPHATASE (BEAKER) (test code = 346) BILIRUBIN TOTAL 0.3 mg/dL 0.2-1.2 (BEAKER) (test code = 377) SODIUM (BEAKER) 139 meq/L 136-145 (test code = 381) POTASSIUM (BEAKER) 3.8 meq/L 3.5-5.1 (test code = 379) CHLORIDE (BEAKER) 111 meq/L 98-107 H (test code = 382) CO2 (BEAKER) (test 22 meq/L 22-29 code = 355) BLOOD UREA 13 mg/dL 7-21 NITROGEN (BEAKER) (test code = 354) CREATININE 0.91 mg/dL 0.57-1.25 (BEAKER) (test code = 358) GLUCOSE RANDOM 144 mg/dL 70-105 H (BEAKER) (test code = 652) CALCIUM (BEAKER) 8.3 mg/dL 8.4-10.2 L (test code = 697) AST (SGOT) 29 U/L 5-34 (BEAKER) (test code = 353) ALT (SGPT) 30 U/L 6-55 (BEAKER) (test code = 347) EGFR (BEAKER) 71 Interpretatio n of eGFR (test code = 1092) mL/min/1.[address] age Description sq m Result G1 Katharina l or high >=90 G2 Mildly decreased 60-89 G3a Mildl y to moderately 45-5 9 G3b Moderately to s everely 30-44 G4 Severl y decreased 15-29 G5 Kidney failure <15Reported eGF R is based on the CKD-EPI 2021 equation that d oes not use a race coefficientEsti mated GFR is not as accur ate as Creatinine Lydia milton in predicting glom erular filtration rate . Estimated GFR is not appl icable for dialysis patien ts Cartridge Assembling Machine Adjuster ID - MARCOCBC W/PLT COUNT & AUTO [id number] 05:47:50 Test Item Value Reference Range Interpretation Comments WHITE BLOOD CELL COUNT (BEAKER) 5.2 K/ L 3.5-10.5 (test code = 775) RED BLOOD CELL COUNT (BEAKER) 2.44 M/ L 3.93-5.22 L (test code = 761) HEMOGLOBIN (BEAKER) (test code = 7.5 GM/DL 11.2-15.7 L 410) HEMATOCRIT (BEAKER) (test code = 23.1 % 34.1-44.9 L 411) MEAN CORPUSCULAR VOLUME (BEAKER) 95 fL 79-95 (test code = 753) MEAN CORPUSCULAR HEMOGLOBIN 30.7 pg 25.6-32.2 (BEAKER) (test code = 751) MEAN CORPUSCULAR HEMOGLOBIN CONC 32.5 GM/DL 32.2-35.5 (BEAKER) (test code = 752) RED CELL DISTRIBUTION WIDTH 13.7 % 11.7-14.4 (BEAKER) (test code = 412) PLATELET COUNT (BEAKER) (test 146 K/CU MM 150-450 L code = 756) MEAN PLATELET VOLUME (BEAKER) 9.9 fL 9.4-12.3 (test code = 754) NUCLEATED RED BLOOD CELLS 0 /100 WBC 0-0 (BEAKER) (test code = 413) NEUTROPHILS RELATIVE PERCENT 51 % (BEAKER) (test code = 429) LYMPHOCYTES RELATIVE PERCENT 40 % (BEAKER) (test code = 430) MONOCYTES RELATIVE PERCENT 6 % (BEAKER) (test code = 431) EOSINOPHILS RELATIVE PERCENT 3 % (BEAKER) (test code = 432) BASOPHILS RELATIVE PERCENT 0 % (BEAKER) (test code = 437) NEUTROPHILS ABSOLUTE COUNT 2.64 K/ L 1.56-6.13 (BEAKER) (test code = 670) LYMPHOCYTES ABSOLUTE COUNT 2.09 K/ L 1.18-3.74 (BEAKER) (test code = 414) MONOCYTES ABSOLUTE COUNT (BEAKER) 0.31 K/ L 0.24-0.36 (test code = 415) EOSINOPHILS ABSOLUTE COUNT 0.14 K/ L 0.04-0.36 (BEAKER) (test code = 416) BASOPHILS ABSOLUTE COUNT (BEAKER) 0.01 K/ L 0.01-0.08 (test code = 417) IMMATURE GRANULOCYTES-RELATIVE 0.40 % 0.00-1.00 PERCENT (BEAKER) (test code = 2801) HEPATITIS B CORE ANTIBODY, [id number] 15:21:57 Test Item Value Reference Range Interpretation Comments HEPATITIS B CORE TOTAL ANTIBODY Reactive Nonreactive A (BEAKER) (test code = 497) Cartridge Assembling Machine Adjuster ID - RMOperator ID - RMOperator ID - RMHEPATITIS B SURFACE ANTIBODY 2022-06-24 15:00:26 Test Item Value Reference Range Interpretation Comments HEPATITIS B SURFACE ANTIBODY < mIU/mL <8.0 (BEAKER) (test code = 647) Cartridge Assembling Machine Adjuster ID - RMHEPATITIS C PCR, [id number] 14:36:46 Test Item Value Reference Range Interpretation Comments HCV NUMERIC RESULT (BEAKER) [id number] IU/mL <15 H (test code = 2700) ARUN TITER AND [id number] 12:15:24 Test Item Value Reference Range Interpretation Comments ARUN TITER (BEAKER) (test code = :40 1541) ARUN PATTERN (BEAKER) (test code = Homogeneous 1781) ANTI-NUCLEAR ANTIBODY (ARUN)2022-06-24 12:15:08 Test Item Value Reference Range Interpretation Comments ANTI-NUCLEAR ANTIBODY (ARUN) (BEAKER) Positive Negative A (test code = 418) Test performed by IFA method.ALPHA FETOPROTEIN (AFP), TUMOR [id number] 08:58:57 Test Item Value Reference Range Interpretation Comments ALPHA-FETOPROTEIN (BEAKER) (test 4.1 ng/mL <10.0 code = 1094) Cartridge Assembling Machine Adjuster ID - RMHEPATITIS A ANTIBODY, [id number] 08:58:57 Test Item Value Reference Range Interpretation Comments HEPATITIS A IGM ANTIBODY (BEAKER) Nonreactive Nonreactive (test code = 498) Cartridge Assembling Machine Adjuster ID - RMHEPATITIS A ANTIBODY, [id number] 08:58:57 Test Item Value Reference Range Interpretation Comments HEPATITIS A IGG ANTIBODY (BEAKER) Nonreactive Nonreactive (test code = 2797) Cartridge Assembling Machine Adjuster ID - [id number] 06:22:49 Test Item Value Reference Range Interpretation Comments ALPHA-1 ANTITRYPSIN (BEAKER) 175.60 mg/dL 90.00-200.00 (test code = 502) Cartridge Assembling Machine Adjuster ID - [id number] 06:05:43 Test Item Value Reference Range Interpretation Comments FERRITIN (BEAKER) (test code = 110.88 ng/mL 5.00-275.00 361) Cartridge Assembling Machine Adjuster ID - BREANNE WCOMPREHENSIVE METABOLIC [id number] 05:49:38 Test Item Value Reference Range Interpretation Comments TOTAL PROTEIN 5.9 gm/dL 6.0-8.3 L (BEAKER) (test code = 770) ALBUMIN (BEAKER) 3.1 g/dL 3.5-5.0 L (test code = 1145) ALKALINE 118 U/L 40-150 PHOSPHATASE (BEAKER) (test code = 346) BILIRUBIN TOTAL 0.3 mg/dL 0.2-1.2 (BEAKER) (test code = 377) SODIUM (BEAKER) 138 meq/L 136-145 (test code = 381) POTASSIUM (BEAKER) 4.4 meq/L 3.5-5.1 (test code = 379) CHLORIDE (BEAKER) 113 meq/L 98-107 H (test code = 382) CO2 (BEAKER) (test 19 meq/L 22-29 L code = 355) BLOOD UREA 16 mg/dL 7-21 NITROGEN (BEAKER) (test code = 354) CREATININE 1.03 mg/dL 0.57-1.25 (BEAKER) (test code = 358) GLUCOSE RANDOM 110 mg/dL 70-105 H (BEAKER) (test code = 652) CALCIUM (BEAKER) 8.3 mg/dL 8.4-10.2 L (test code = 697) AST (SGOT) 46 U/L 5-34 H (BEAKER) (test code = 353) ALT (SGPT) 37 U/L 6-55 (BEAKER) (test code = 347) EGFR (BEAKER) 61 Interpretati on of eGFR (test code = 1092) mL/min/1.[address] age Description sq m Result G1 Katharina l or high >=90 G2 Mildly decreased 60-89 G3a Mildl y to moderately 45-5 9 G3b Moderately to s everely 30-44 G4 Severl y decreased 15-29 G5 Kidney failure <15Reported eGF R is based on the CKD-EPI 202 equation that d oes not use a race coefficientEsti mated GFR is not as accur ate as Creatinine Lydia rose in predicting glom erular filtration rate . Estimated GFR is not appl icable for dialysis patien ts Cartridge Assembling Machine Adjuster ID - RMHEPATITIS B SURFACE [id number] 05:47:01 Test Item Value Reference Range Interpretation Comments HEPATITIS B SURFACE ANTIGEN (2) Nonreactive Nonreactive (BEAKER) (test code = 1002) Specimen is considered negative for HBsAg.IRON, TIBC, % SAT. (WITHOUT FERRITIN) 2022-06-24 05:27:14 Test Item Value Reference Range Interpretation Comments IRON (BEAKER) (test code = 547) 72.0 ug/dL 40.0-160.0 TOTAL IRON BINDING CAPACITY 344 ug/dL 250-450 (BEAKER) (test code = 769) IRON % SATURATION (2) (BEAKER) 21 % 20-55 (test code = 2590) Cartridge Assembling Machine Adjuster ID - RMCBC W/PLT COUNT & AUTO [id number] 05:14:54 Test Item Value Reference Range Interpretation Comments WHITE BLOOD CELL COUNT (BEAKER) 5.7 K/ L 3.5-10.5 (test code = 775) RED BLOOD CELL COUNT (BEAKER) 2.53 M/ L 3.93-5.22 L (test code = 761) HEMOGLOBIN (BEAKER) (test code = 7.9 GM/DL 11.2-15.7 L 410) HEMATOCRIT (BEAKER) (test code = 24.5 % 34.1-44.9 L 411) MEAN CORPUSCULAR VOLUME (BEAKER) 97 fL 79-95 H (test code = 753) MEAN CORPUSCULAR HEMOGLOBIN 31.2 pg 25.6-32.2 (BEAKER) (test code = 751) MEAN CORPUSCULAR HEMOGLOBIN CONC 32.2 GM/DL 32.2-35.5 (BEAKER) (test code = 752) RED CELL DISTRIBUTION WIDTH 13.8 % 11.7-14.4 (BEAKER) (test code = 412) PLATELET COUNT (BEAKER) (test 153 K/CU MM 150-450 code = 756) MEAN PLATELET VOLUME (BEAKER) 9.8 fL 9.4-12.3 (test code = 754) NUCLEATED RED BLOOD CELLS 0 /100 WBC 0-0 (BEAKER) (test code = 413) NEUTROPHILS RELATIVE PERCENT 46 % (BEAKER) (test code = 429) LYMPHOCYTES RELATIVE PERCENT 46 % (BEAKER) (test code = 430) MONOCYTES RELATIVE PERCENT 5 % (BEAKER) (test code = 431) EOSINOPHILS RELATIVE PERCENT 2 % (BEAKER) (test code = 432) BASOPHILS RELATIVE PERCENT 1 % (BEAKER) (test code = 437) NEUTROPHILS ABSOLUTE COUNT 2.64 K/ L 1.56-6.13 (BEAKER) (test code = 670) LYMPHOCYTES ABSOLUTE COUNT 2.62 K/ L 1.18-3.74 (BEAKER) (test code = 414) MONOCYTES ABSOLUTE COUNT (BEAKER) 0.27 K/ L 0.24-0.36 (test code = 415) EOSINOPHILS ABSOLUTE COUNT 0.14 K/ L 0.04-0.36 (BEAKER) (test code = 416) BASOPHILS ABSOLUTE COUNT (BEAKER) 0.03 K/ L 0.01-0.08 (test code = 417) IMMATURE GRANULOCYTES-RELATIVE 0.30 % 0.00-1.00 PERCENT (BEAKER) (test code = 2801) CBC W/PLT COUNT & AUTO [id number] 09:50:02 Test Item Value Reference Range Interpretation Comments WHITE BLOOD CELL COUNT 5.3 K/ L 3.5-10.5 (BEAKER) (test code = 775) RED BLOOD CELL COUNT 2.35 M/ L 3.93-5.22 L (BEAKER) (test code = 761) HEMOGLOBIN (BEAKER) 7.2 GM/DL 11.2-15.7 L (test code = 410) HEMATOCRIT (BEAKER) 23.0 % 34.1-44.9 L (test code = 411) MEAN CORPUSCULAR 98 fL 79-95 H Discordant results VOLUME (BEAKER) (test compar ed to code = 753) previous, clini ignacia correlation required. MEAN CORPUSCULAR 30.6 pg 25.6-32.2 HEMOGLOBIN (BEAKER) (test code = 751) MEAN CORPUSCULAR 31.3 GM/DL 32.2-35.5 L HEMOGLOBIN CONC (BEAKER) (test code = 752) RED CELL DISTRIBUTION 14.0 % 11.7-14.4 WIDTH (BEAKER) (test code = 412) PLATELET COUNT 107 K/CU MM 150-450 L (BEAKER) (test code = 756) MEAN PLATELET VOLUME 10.8 fL 9.4-12.3 (BEAKER) (test code = 754) NUCLEATED RED BLOOD 0 /100 WBC 0-0 CELLS (BEAKER) (test code = 413) NEUTROPHILS RELATIVE 44 % PERCENT (BEAKER) (test code = 429) LYMPHOCYTES RELATIVE 47 % PERCENT (BEAKER) (test code = 430) MONOCYTES RELATIVE 5 % PERCENT (BEAKER) (test code = 431) EOSINOPHILS RELATIVE 3 % PERCENT (BEAKER) (test code = 432) BASOPHILS RELATIVE 1 % PERCENT (BEAKER) (test code = 437) NEUTROPHILS ABSOLUTE 2.35 K/ L 1.56-6.13 COUNT (BEAKER) (test code = 670) LYMPHOCYTES ABSOLUTE 2.48 K/ L 1.18-3.74 COUNT (BEAKER) (test code = 414) MONOCYTES ABSOLUTE 0.25 K/ L 0.24-0.36 COUNT (BEAKER) (test code = 415) EOSINOPHILS ABSOLUTE 0.18 K/ L 0.04-0.36 COUNT (BEAKER) (test code = 416) BASOPHILS ABSOLUTE 0.04 K/ L 0.01-0.08 COUNT (BEAKER) (test code = 417) IMMATURE 0.20 % 0.00-1.00 GRANULOCYTES-RELATIVE PERCENT (BEAKER) (test code = 2801) COMPREHENSIVE METABOLIC [id number] 09:06:54 Test Item Value Reference Range Interpretation Comments TOTAL PROTEIN 5.2 gm/dL 6.0-8.3 L (BEAKER) (test code = 770) ALBUMIN (BEAKER) 2.7 g/dL 3.5-5.0 L (test code = 1145) ALKALINE 96 U/L 40-150 PHOSPHATASE (BEAKER) (test code = 346) BILIRUBIN TOTAL 0.3 mg/dL 0.2-1.2 (BEAKER) (test code = 377) SODIUM (BEAKER) 139 meq/L 136-145 (test code = 381) POTASSIUM (BEAKER) 4.2 meq/L 3.5-5.1 (test code = 379) CHLORIDE (BEAKER) 116 meq/L 98-107 H (test code = 382) CO2 (BEAKER) (test 18 meq/L 22-29 L code = 355) BLOOD UREA 23 mg/dL 7-21 H NITROGEN (BEAKER) (test code = 354) CREATININE 0.90 mg/dL 0.57-1.25 (BEAKER) (test code = 358) GLUCOSE RANDOM 116 mg/dL 70-105 H (BEAKER) (test code = 652) CALCIUM (BEAKER) 8.1 mg/dL 8.4-10.2 L (test code = 697) AST (SGOT) 43 U/L 5-34 H (BEAKER) (test code = 353) ALT (SGPT) 34 U/L 6-55 (CHANNING) (test code = 347) EGFR (CHANNING) 72 Interpretatio n of eGFR (test code = 1092) mL/min/1.[address] age Description sq m Result G1 Katharina l or high >=90 G2 Mildly decreased 60-89 G3a Mildl y to moderately 45-5 9 G3b Moderately to s everely 30-44 G4 Severl y decreased 15-29 G5 Kidney failure <15Reported eGF R is based on the CKD-EPI 2020 equation that d oes not use a race coefficientEsti mated GFR is not as accur ate as Creatinine Lydia milton in predicting glom erular filtration rate . Estimated GFR is not appl icable for dialysis patien ts [employer]sembling Machine Adjuster ID - ADAL /S, ABDOMINAL, [id number] 17:39:00Abdomen limited area? Add comment if clarification is needed.->LiverReason for exam:->gi bleed, HCV, suspected cirrhosis [facility] : 1960 Sex: FFINALREPORT TECHNIQUE: Grayscale ultrasound of the right abdomen. INDICATION: gi bleed, HCV, suspected cirrhosis. COMPARISON: None. FINDINGS: MIDLINE VASCULATURE: The visualized inferior vena cava is unremarkable. The maximum visualized aortic diameter is 2.2 cm. LIVER: Mildly nodular liver contour. No focal lesions. The main portal vein is patent and measures 1 cm in diameter. BILIARY:Gallbladder: No gallstones or sludge. No gallbladder wall thickening, pericholecystic fluid, or distention. Negative sonographic Simms sign.Common bile duct measures 0.6 cm, within normal limits. No intrahepatic biliary ductal dilatation. PANCREAS: Incompletely visualized due to overlying bowel gas.The partially visualized pancreatic body and tail are normal. PERITONEUM: No free fluid. RIGHT KIDNEY: Normal in size. No hydronephrosis. No sonographically evident solid mass lesion. IMPRESSION: The mildly nodular liver contour is concerning for cirrhosis. Signed: Alonzo Rao MDReport Verified Date/Time: 06/22/2022 17:39:29 HEPATIC FUNCTION [id number] 02:08:20 Test Item Value Reference Range Interpretation Comments TOTAL PROTEIN (BEAKER) (test code = 5.5 gm/dL 6.0-8.3 L 770) ALBUMIN (BEAKER) (test code = 1145) 2.8 g/dL 3.5-5.0 L BILIRUBIN TOTAL (BEAKER) (test code 0.3 mg/dL 0.2-1.2 = 377) BILIRUBIN DIRECT (BEAKER) (test 0.2 mg/dL 0.1-0.5 code = 706) ALKALINE PHOSPHATASE (BEAKER) (test 99 U/L 40-150 code = 346) AST (SGOT) (BEAKER) (test code = 37 U/L 5-34 H 353) ALT (SGPT) (BEAKER) (test code = 27 U/L 6-55 347) [employer]sembling Machine Adjuster ID - BSBASIC METABOLIC [id number] 02:08:19 Test Item Value Reference Range Interpretation Comments SODIUM (BEAKER) 143 meq/L 136-145 (test code = 381) POTASSIUM 3.9 meq/L 3.5-5.1 (BEAKER) (test code = 379) CHLORIDE (BEAKER) 116 meq/L 98-107 H (test code = 382) CO2 (BEAKER) 19 meq/L 22-29 L (test code = 355) BLOOD UREA 54 mg/dL 7-21 H NITROGEN (BEAKER) (test code = 354) CREATININE 1.09 mg/dL 0.57-1.25 (BEAKER) (test code = 358) GLUCOSE RANDOM 103 mg/dL 70-105 (BEAKER) (test code = 652) CALCIUM (BEAKER) 8.4 mg/dL 8.4-10.2 (test code = 697) EGFR (BEAKER) 57 Interpretatio n of eGFR (test code = mL/min/1.73 values Stage De scription 1092) sq m Result G1 Katharina l or high >=90 G2 Mildly decreased 60-89 G3a Mildl y to moderately 45-5 9 G3b Moderately to s everely 30-44 G4 Severl y decreased 15-29 G5 Kidney failure <15Reported eGF R is based on the CKD-EPI 2020 equation that d oes not use a race coefficientEsti mated GFR is not as accur ate as Creatinine Lydia milton in predicting glom erular filtration rate . Estimated GFR is not appl icable for dialysis patien ts Cart[employer] Assembling Machine Adjuster ID - BSPROTHROMBIN TIME/[id number] 01:59:40 Test Item Value Reference Range Interpretation Comments PROTIME (BEAKER) (test code = 15.5 seconds 11.9-14.2 H 759) INR (BEAKER) (test code = 370) 1.31 <=5.90 RECOMMENDED COUMADIN/WARFARIN INR THERAPY RANGESSTANDARD DOSE: 2.0 - 3.0 Includes: PROPHYLAXIS for venous thrombosis, systemic embolization; TREATMENT for venous thrombosis and/or pulmonary embolus.HIGH RISK: Target INR is 2.5-3.5 for patients with mechanical heart valves.CBC W/PLT COUNT & AUTO [id number] 01:52:43 Test Item Value Reference Range Interpretation Comments WHITE BLOOD CELL COUNT (BEAKER) 8.1 K/ L 3.5-10.5 (test code = 775) RED BLOOD CELL COUNT (BEAKER) 2.77 M/ L 3.93-5.22 L (test code = 761) HEMOGLOBIN (BEAKER) (test code = 8.4 GM/DL 11.2-15.7 L 410) HEMATOCRIT (BEAKER) (test code = 25.7 % 34.1-44.9 L 411) MEAN CORPUSCULAR VOLUME (BEAKER) 93 fL 79-95 (test code = 753) MEAN CORPUSCULAR HEMOGLOBIN 30.3 pg 25.6-32.2 (BEAKER) (test code = 751) MEAN CORPUSCULAR HEMOGLOBIN CONC 32.7 GM/DL 32.2-35.5 (BEAKER) (test code = 752) RED CELL DISTRIBUTION WIDTH 13.6 % 11.7-14.4 (BEAKER) (test code = 412) PLATELET COUNT (BEAKER) (test 181 K/CU MM 150-450 code = 756) MEAN PLATELET VOLUME (BEAKER) 10.2 fL 9.4-12.3 (test code = 754) NUCLEATED RED BLOOD CELLS 0 /100 WBC 0-0 (BEAKER) (test code = 413) NEUTROPHILS RELATIVE PERCENT 51 % (BEAKER) (test code = 429) LYMPHOCYTES RELATIVE PERCENT 42 % (BEAKER) (test code = 430) MONOCYTES RELATIVE PERCENT 4 % (BEAKER) (test code = 431) EOSINOPHILS RELATIVE PERCENT 2 % (BEAKER) (test code = 432) BASOPHILS RELATIVE PERCENT 1 % (BEAKER) (test code = 437) NEUTROPHILS ABSOLUTE COUNT 4.12 K/ L 1.56-6.13 (BEAKER) (test code = 670) LYMPHOCYTES ABSOLUTE COUNT 3.39 K/ L 1.18-3.74 (BEAKER) (test code = 414) MONOCYTES ABSOLUTE COUNT (BEAKER) 0.32 K/ L 0.24-0.36 (test code = 415) EOSINOPHILS ABSOLUTE COUNT 0.17 K/ L 0.04-0.36 (BEAKER) (test code = 416) BASOPHILS ABSOLUTE COUNT (BEAKER) 0.04 K/ L 0.01-0.08 (test code = 417) IMMATURE GRANULOCYTES-RELATIVE 0.50 % 0.00-1.00 PERCENT (BEAKER) (test code = 2801) XR KNEE <3 VW [id number] 20:13:04 Healing tibial plateau fracture. Osteoarthrosis. EXAM: XR KNEE <3 VW RIGHT HISTORY: R tibial plateau fx COMPARISON: 07/08/2019 FINDINGS: Increased sclerosis is seen about the medial tibial plateau fracture. Noacute fracture or dislocation is seen. A joint effusion is noted. There istricompartmentalosteophytosis with joint space narrowing and subchondralsclerosis. Osteopenia is noted. [facility], Radiant Results Inft User - 08/19/2019 3:14 PM CDTEXAM:XR KNEE <3 VW RIGHTHISTORY:R tibial plateau fx COMPARISON:07/08/2019FINDINGS: Increased sclerosis is seen about the medial tibial plateau fracture. Noacute fracture or dislocation is seen. A joint effusion is noted. There istricompartmental osteophytosis with joint space narrowing and subchondralsclerosis. Osteopenia is noted.IMPRESSIONHealing tibial plateau fracture.[facility]steoarthrosis.[facility] [id number] 15:37:20 Healing tibial plateau fracture. Mild osteoarthrosis of the knee. Preliminary Report Dictated by Resident: Susan Arguello MD., have reviewed this study and agree with the abovereport.EXAM: XR KNEE <3 VW RIGHT HISTORY: 58 year-old woman with right tibial plateau fx COMPARISON: X-ray right knee 06/08/2019 FINDINGS: Radiographs of the right knee demonstrate healing impacted fractureof themedial tibial plateau. Mild osteoarthritic changes of the knee withsubchondral sclerosis and marginal osteophytosis. Alignment is withinnormal limits. Diffuse osteopenia is noted. Moderate amountofsuprapatellar joint effusion is noted. [facility], Radiant Results Inft User - 07/08/2019 10:38 AM CDTEXAM: XR KNEE <3 VW RIGHTHISTORY: 58 year-old woman with right tibial plateau fx COMPARISON: X-ray right knee 06/08/2019FINDINGS: Radiographs of the right knee demonstrate healing impacted fracture of themedial tibial plateau. Mild osteoarthritic changes of the knee withsubchondral sclerosis and marginal osteophytosis. Alignment is withinnormal limits. Diffuse osteopenia is noted. Moderate amount ofsuprapatellar joint effusion is noted.IMPRESSIONHealing tibial plateau fracture.Mild osteoarthrosis of the knee.Preliminary Report Dictated by Resident: Susan Khalil MD., have reviewed this study and agree with the abovereport.[facility]XR [facility] 3 VW [id number] 21:16:38 Healing proximal tibial fracture. Preliminary Report Dictated by Resident: Susan Shepard MD., have reviewed this study and agree with the abovereport. EXAM: XR KNEE 3 VW RIGHT HISTORY: right tibial plateau fracture. Please obtain AP, lateral andoblique views of the right knee in knee immobilizer. COMPARISON: 05/19/2019. FINDINGS: Images of the right knee demonstrate a healing, impacted fracture of thetibial plateau. Intervally increased sclerosis about the fracture lines isconsistent with healing. Mild diffuse osteopenia is present. A small- volumesuprapatellar joint effusion is present. Surrounding soft tissue swellinghas improved in the interval. [facility], Radiant Results Inft User - 06/08/2019 4:17 PM CDTEXAM: XR KNEE 3 VW RIGHTHISTORY: right tibial plateau fracture. Please obtain AP, lateral andoblique views of the right knee in knee immobilizer.COMPARISON: 05/19/2019.FINDINGS:Images of the right knee demonstrate a healing, impacted fracture of thetibial plateau. Intervally increased sclerosis about the fracture lines isconsistent with healing. Mild diffuse osteopeniais present. A small-volumesuprapatellar joint effusion is present. Surrounding soft tissue swellinghas improved in the interval.IMPRESSIONHealing proximal tibial fracture.Preliminary Report Dictated byResident: Susan Alberts MD., have reviewed this study and agree with the abov ereport.[facility] CampusANTI-NUCLEAR ANTIBODY [id number] 16:04:00 Test Item Value Reference Range Interpretation Comments ARUN (test code = Negative Negative [id number]) TANNER (test code = TANNER) Negative - No Anti-Nuclear Antibodies detected by IFA.Positive - ARUN IFA screen performed with a 1:80 dilution in adults and a 1:40 dilution in pediatrics. Any ARUN "Positive" will have titer performed and reported separately.Negative - No Anti-Nuclear Antibodies detected by IFA.Positive - ARUN IFA screen performed with a 1:80 dilution in adults and a 1:40 dilution in pediatrics. Any ARUN "Positive" will have titer performed and reported separately. Lab Interpretation (test Normal code = 28526-2) [facility] CampusBASIC METABOLIC PANEL (NA, K, CL, CO2, GLUCOSE, BUN, CREATININE, CA)2019-05-25 08:47:00 Test Item Value Reference Range Interpretation Comments NA (test code = 138 mmol/L 135-145 9377533456) K (test code = 4.3 mmol/L 3.5-5 Slight 8414581199) hemolysis CL (test code = 101 mmol/L 98-108 0521369368) CO2 TOTAL (test code 31 mmol/L 23-31 = 7338318057) AGAP (test code = 2-16 8600356180) BUN (test code = 28 mg/dL 7-23 H Slight 6916156024) hemolysis GLUCOSE (test code = 111 mg/dL 70-110 H 5167413557) CREATININE (test code 0.79 mg/dL 0.5-1.04 = 4540956725) CALCIUM (test code = 8.7 mg/dL 8.6-10.6 1858527341) eGFR Calculation mL/min/1.73m2 (Non-) (test code = 1548323646) eGFR Calculation mL/min/1.73m2 () (test code = 6850782324) TANNER (test code = TANNER) Association of Glomerular Filtration Rate (GFR) and Staging of Kidney Disease* + -----+ --------+ +| GFR (mL/min/1.73 m2) ?| With Kidney Damage ?| ?Without Kidney Damage+ +------- +---- --+| ?>90 ?| ?Stage one ?| ? Normal ?+ ------+ ---------+--------- +| ?60-89 ?| ?Stage two ?| ? Decreased GFR ? + -----+ --------+ +| ?30-59 ?| ?Stage three ?| ? Stage three ? + -----+ --------+ +| ?15-29 ?| ?Stage four ? | ? Stage four ?+ ------+ ---------+--------- +| ?<15 (or dialysis) ? ?| ?Stage five ? | ? Stage five ?+ ------+ ---------+--------- + *Each stage assumes the associated GFR level has been in effect for at least three months. ?Stages 1 to 5, with or without kidney disease, indicate chronic kidney disease. Notes: Determination of stages one and two (with eGFR >59mL/min/1.73 m2) requires estimation of kidney damage for at least three months as defined by structural or functional abnormalities of the kidney, manifested by either:Pathological abnormalities or Markers of kidney damage (including abnormalities in the composition of the blood or urine or abnormalities in imaging tests). Lab Interpretation Abnormal (test code = 95486-4) [facility] WITH [id number] 08:16:00 Test Item Value Reference Range Interpretation Comments WBC (test code = See_Comment [Automated 6690-2) message] The sy stem which generated this result transmitted reference range : 4.30 - 11.10 10*3/?L. The reference range was not used to interpret this result as normal/abnormal . RBC (test code = See_Comment [Automated 789-8) message] The sy stem which generated this result transmitted reference range : 3.93 - 5.25 10*6/?L. The reference range was not used to interpret this result as normal/abnormal . HGB (test code = 12.9 g/dL 11.6-15 718-7) HCT (test code = 39.6 % 35.7-45.2 4544-3) MCV (test code = 99.5 fL 80.6-95.5 H 787-2) MCH (test code = 32.4 pg 25.9-32.8 785-6) MCHC (test code = 32.6 g/dL 31.6-35.1 786-4) RDW-SD (test code = 48.0 fL 39-49.9 39808-7) RDW-CV (test code = 13.2 % 12-15.5 788-0) PLT (test code = See_Comment L [Automated 777-3) message] The sy stem which generated this result transmitted reference range : 166 - 358 10*3/ ?L. The reference r alec was not used to interpret this result as normal/abnormal . MPV (test code = 10.8 fL 9.5-12.9 55366-6) NRBC/100 WBC (test See_Comment [Automat ed code = 3899614441) message] The system which generated this result transmitted reference range : 0.0 - 10.0 /100 WBCs. The refer ence range was not u sed to interpret th is result as normal/abnormal . NRBC x10^3 (test code <0.01 See_Comment [Auto mated = 8749230275) message] The s ystem which generated this result transmitted reference range : 10*3/?L. The reference range was not used to interpret this result as normal/abnormal . GRAN MAT (NEUT) % 57.0 % (test code = 770-8) IMM GRAN % (test code 0.30 % = 4405759991) LYMPH % (test code = 28.4 % 736-9) MONO % (test code = 9.2 % 5905-5) EOS % (test code = 4.7 % 713-8) BASO % (test code = 0.4 % 706-2) GRAN MAT x10^3(ANC) 3.89 10*3/uL 1.88-7.09 (test code = 9974022703) IMM GRAN x10^3 (test <0.03 0-0.06 code = 6818996840) LYMPH x10^3 (test code 1.94 10*3/uL 1.32-3.29 = 731-0) MONO x10^3 (test code 0.63 10*3/uL 0.33-0.92 = 742-7) EOS x10^3 (test code = 0.32 10*3/uL 0.03-0.39 711-2) BASO x10^3 (test code 0.03 10*3/uL 0.01-0.07 = 704-7) Lab Interpretation Abnormal (test code = 28406-5) [facility] CampusTRIIODOTHYRONINE2020-03-09 22:51:00 Test Item Value Reference Range Interpretation Comments T3 (test code = 1900815937) 102.0 ng/dL 97-170 Lab Interpretation (test code = Normal 46479-7) [facility] CampusTHYROXINE, [id number] 22:37:00 Test Item Value Reference Range Interpretation Comments T4 TOTAL (test code = See_Comment H [Auto mated 3517101666) message] The system which generated this result transmitted reference range : 5.5 - 11.0 mcg/dL. The reference range was not used to interpret this result as normal/abnormal . TANNER (test code = TANNER) Normal Range or Expected Values will vary for patients who are on ovulation control drugs or . ? Lab Interpretation Abnormal (test code = 73591-1) [facility] CampusURINE [id number] 18:53:00 Test Item Value Reference Range Interpretation Comments URINE CULTURE (test code <10,000 CFU/mL = 630-4) Gram-Positive Cocci [facility] CampusFREE [id number] 17:03:00 Test Item Value Reference Range Interpretation Comments FREE T3 (test code = 4715415521) 2.45 pg/mL 2.77-5.27 L Lab Interpretation (test code = Abnormal 97237-9) [facility] CampusRHEUMATOID [id number] 14:30:00 Test Item Value Reference Range Interpretation Comments RF (test code = <20 See_Comment [Automated message] 3812864464) The system [employer] generated this result transmitted ref erence range: <20 IU/m L. The reference range was not used to int erpret this result as normal/abnormal . Lab Interpretation (test Normal code = 69507-0) [facility] CampusC-REACTIVE [id number] 14:28:00 Test Item Value Reference Range Interpretation Comments CRP (test code = 3493904077) 2.5 mg/dL <0.8 H Lab Interpretation (test code = Abnormal 22570-7) [facility] CampusXR CHEST 2 [id number] 13:28:49EXAM: XR CHEST 2 VW HISTORY: fevers of unknown etiology COMPARISON: None. FINDINGS: The heart and great vessels are normal. Mild changes of subsegmentalatelectasis are present in both lung bases, but the lungs are well expandedand clear otherwise.[facility], Radiant Results Inft User - 05/24/2019 8:30 AM CDTEXAM: XR CHEST 2 VWHISTORY: fevers of unknown etiology COMPARISON: None.FINDINGS:The heart and greatvessels are normal. Mild changes of subsegmentalatelectasis are present in both lung bases, but the lungs are well expandedand clear otherwise.[facility] CampusBASI METABOLIC PANEL (NA, K, CL, CO2, GLUCOSE, BUN, CREATININE, CA)2019-05-24 10:17:00 Test Item Value Reference Range Interpretation Comments NA (test code = 137 mmol/L 135-145 4370148677) K (test code = 3.8 mmol/L 3.5-5 Slight 4069048006) hemolysis CL (test code = 98 mmol/L 98-108 7321609256) CO2 TOTAL (test code 33 mmol/L 23-31 H = 0822151463) AGAP (test code = 2-16 5565326468) BUN (test code = 31 mg/dL 7-23 H Slight 4306154609) hemolysis GLUCOSE (test code = 105 mg/dL 70-110 2947984450) CREATININE (test code 0.91 mg/dL 0.5-1.04 = 0226064519) CALCIUM (test code = 8.8 mg/dL 8.6-10.6 9436751642) eGFR Calculation mL/min/1.73m2 (Non-) (test code = 6806942741) eGFR Calculation mL/min/1.73m2 () (test code = 6539666904) TANNER (test code = TANNER) Association of Glomerular Filtration Rate (GFR) and Staging of Kidney Disease* + -----+ --------+ +| GFR (mL/min/1.73 m2) ?| With Kidney Damage ?| ?Without Kidney Damage+ +------- +---- --+| ?>90 ?| ?Stage one ?| ? Normal ?+ ------+ ---------+--------- +| ?60-89 ?| ?Stage two ?| ? Decreased GFR ? + -----+ --------+ +| ?30-59 ?| ?Stage three ?| ? Stage three ? + -----+ --------+ +| ?15-29 ?| ?Stage four ? | ? Stage four ?+ ------+ ---------+--------- +| ?<15 (or dialysis) ? ?| ?Stage five ? | ? Stage five ?+ ------+ ---------+--------- + *Each stage assumes the associated GFR level has been in effect for at least three months. ?Stages 1 to 5, with or without kidney disease, indicate chronic kidney disease. Notes: Determination of stages one and two (with eGFR >59mL/min/1.73 m2) requires estimation of kidney damage for at least three months as defined by structural or functional abnormalities of the kidney, manifested by either:Pathological abnormalities or Markers of kidney damage (including abnormalities in the composition of the blood or urine or abnormalities in imaging tests). Lab Interpretation Abnormal (test code = 96418-9) [facility] WITH [id number] 09:49:00 Test Item Value Reference Range Interpretation Comments WBC (test code = See_Comment [Automated 6690-2) message] The sy stem which generated this result transmitted reference range : 4.30 - 11.10 10*3/?L. The reference range was not used to interpret this result as normal/abnormal . RBC (test code = See_Comment [Automated 789-8) message] The sy stem which generated this result transmitted reference range : 3.93 - 5.25 10*6/?L. The reference range was not used to interpret this result as normal/abnormal . HGB (test code = 12.8 g/dL 11.6-15 718-7) HCT (test code = 39.4 % 35.7-45.2 4544-3) MCV (test code = 100.0 fL 80.6-95.5 H 787-2) MCH (test code = 32.5 pg 25.9-32.8 785-6) MCHC (test code = 32.5 g/dL 31.6-35.1 786-4) RDW-SD (test code = 48.6 fL 39-49.9 72326-9) RDW-CV (test code = 13.3 % 12-15.5 788-0) PLT (test code = See_Comment L [Automated 777-3) message] The sy stem which generated this result transmitted reference range : 166 - 358 10*3/ ?L. The reference r alec was not used to interpret this result as normal/abnormal . MPV (test code = 11.3 fL 9.5-12.9 50310-9) NRBC/100 WBC (test See_Comment [Automat ed code = 6671865885) message] The system which generated this result transmitted reference range : 0.0 - 10.0 /100 WBCs. The refer ence range was not u sed to interpret th is result as normal/abnormal . NRBC x10^3 (test code <0.01 See_Comment [Auto mated = 8155640136) message] The s ystem which generated this result transmitted reference range : 10*3/?L. The reference range was not used to interpret this result as normal/abnormal . GRAN MAT (NEUT) % 57.4 % (test code = 770-8) IMM GRAN % (test code 0.40 % = 9351081189) LYMPH % (test code = 30.1 % 736-9) MONO % (test code = 8.9 % 5905-5) EOS % (test code = 2.8 % 713-8) BASO % (test code = 0.4 % 706-2) GRAN MAT x10^3(ANC) 4.69 10*3/uL 1.88-7.09 (test code = 1284101426) IMM GRAN x10^3 (test 0.03 10*3/uL 0-0.06 code = 6115494998) LYMPH x10^3 (test code 2.46 10*3/uL 1.32-3.29 = 731-0) MONO x10^3 (test code 0.73 10*3/uL 0.33-0.92 = 742-7) EOS x10^3 (test code = 0.23 10*3/uL 0.03-0.39 711-2) BASO x10^3 (test code 0.03 10*3/uL 0.01-0.07 = 704-7) Lab Interpretation Abnormal (test code = 39924-6) [facility] [id number] 22:15:00 Test Item Value Reference Range Interpretation Comments FREE T4 (test code = See_Comment [Autom ated message] 9061401552) The system [employer] generated this result transmitted ref erence range: 0.78 - 2 .20 ng/dL:. The ref erence range was not u sed to interpret this result as normal/abnor mal. Lab Interpretation (test Normal code = 07526-5) [facility] CampusSEDIMENTATION [id number] 22:02:00 Test Item Value Reference Range Interpretation Comments ESR (test code = See_Comment H [Automated 7889129205) message] The system which generated this result transmit kristie reference range : 0 - 20 mm/HR. The reference range was not used to interpret this result as normal/abnormal . TANNER (test code = TANNER) ESR setup by LUNA BLANCAS Lab Interpretation Abnormal (test code = 97079-7) [facility] METABOLIC PANEL (NA, K, CL, CO2, GLUCOSE, BUN, CREATININE, CA)2019-05-23 21:58:00 Test Item Value Reference Range Interpretation Comments NA (test code = 136 mmol/L 135-145 5779471766) K (test code = 3.0 mmol/L 3.5-5 L 5052452782) CL (test code = 95 mmol/L 98-108 L 8907270522) CO2 TOTAL (test code = 32 mmol/L 23-31 H 4779260017) AGAP (test code = 2-16 4719259747) BUN (test code = 25 mg/dL 7-23 H 6670184382) GLUCOSE (test code = 124 mg/dL 70-110 H 8696881974) CREATININE (test code = 0.88 mg/dL 0.5-1.04 2752268883) CALCIUM (test code = 8.7 mg/dL 8.6-10.6 6395084139) eGFR Calculation mL/min/1.73m2 (Non-) (test code = 8040075262) eGFR Calculation mL/min/1.73m2 () (test code = 2758112815) TANNER (test code = TANNER) Association of Glomerular Filtration Rate (GFR) and Staging of Kidney Disease* + --+ --+ ------+| GFR (mL/min/1.73 m2) ?| With Kidney Damage ?| ?Without Kidney Damage+ --------+ --------+ +| ?>90 ?| ?Stage one ?| ? Normal ?+ ---+ ---+ -------+| ?60-89 ?| ?Stage two ?| ? Decreased GFR ? + --+ --+ ------+| ?30-59 ?| ?Stage three ?| ? Stage three ? + --+ --+ ------+| ?15-29 ?| ?Stage four ? | ? Stage four ?+ ---+ ---+ -------+| ?<15 (or dialysis) ? ?| ?Stage five ? | ? Stage five ?+ ---+ ---+ -------+ *Each stage assumes the associated GFR level has been in effect for at least three months. ?Stages 1 to 5, with or without kidney disease, indicate chronic kidney disease. Notes: Determination of stages one and two (with eGFR >59mL/min/1.73 m2) requires estimation of kidney damage for at least three months as defined by structural or functional abnormalities of the kidney, manifested by either:Pathological abnormalities or Markers of kidney damage (including abnormalities in the composition of the blood or urine or abnormalities in imaging tests). Lab Interpretation Abnormal (test code = 21124-4) [facility] CampusCREATINE [id number] 21:56:00 Test Item Value Reference Range Interpretation Comments CK (test code = 2733535299) 30 U/L 33-194 L Lab Interpretation (test code = Abnormal 39632-8) [facility] CampusCBC WITH [id number] 21:28:00 Test Item Value Reference Range Interpretation Comments WBC (test code = See_Comment [Automated 6690-2) message] The sy stem which generated this result transmitted reference range : 4.30 - 11.10 10*3/?L. The reference range was not used to interpret this result as normal/abnormal . RBC (test code = See_Comment L [Automated 789-8) message] The sy stem which generated this result transmitted reference range : 3.93 - 5.25 10*6/?L. The reference range was not used to interpret this result as normal/abnormal . HGB (test code = 12.8 g/dL 11.6-15 718-7) HCT (test code = 38.2 % 35.7-45.2 4544-3) MCV (test code = 98.2 fL 80.6-95.5 H 787-2) MCH (test code = 32.9 pg 25.9-32.8 H 785-6) MCHC (test code = 33.5 g/dL 31.6-35.1 786-4) RDW-SD (test code = 47.5 fL 39-49.9 70409-3) RDW-CV (test code = 13.4 % 12-15.5 788-0) PLT (test code = See_Comment L [Automated 777-3) message] The sy stem which generated this result transmitted reference range : 166 - 358 10*3/ ?L. The reference r alec was not used to interpret this result as normal/abnormal . MPV (test code = 10.6 fL 9.5-12.9 29184-6) NRBC/100 WBC (test See_Comment [Automat ed code = 2620778727) message] The system which generated this result transmitted reference range : 0.0 - 10.0 /100 WBCs. The refer ence range was not u sed to interpret th is result as normal/abnormal . NRBC x10^3 (test code <0.01 See_Comment [Auto mated = [id number]) message] The s ystem which generated this result transmitted reference range : 10*3/?L. The reference range was not used to interpret this result as normal/abnormal . GRAN MAT (NEUT) % 71.0 % (test code = 770-8) IMM GRAN % (test code 0.70 % = 6816337549) LYMPH % (test code = 17.2 % 736-9) MONO % (test code = 9.6 % 5905-5) EOS % (test code = 1.2 % 713-8) BASO % (test code = 0.3 % 706-2) GRAN MAT x10^3(ANC) 7.42 10*3/uL 1.88-7.09 H (test code = 3253364177) IMM GRAN x10^3 (test 0.07 10*3/uL 0-0.06 H code = 8616548350) LYMPH x10^3 (test code 1.80 10*3/uL 1.32-3.29 = 731-0) MONO x10^3 (test code 1.00 10*3/uL 0.33-0.92 H = 742-7) EOS x10^3 (test code = 0.13 10*3/uL 0.03-0.39 711-2) BASO x10^3 (test code 0.03 10*3/uL 0.01-0.07 = 704-7) Lab Interpretation Abnormal (test code = 13330-4) [facility] [id number] 20:34:00 Test Item Value Reference Range Interpretation Comments TSH (test code = See_Comment L Biotin has been [id number]) reported to cau se a negative bias, interpret resul ts relative to pat ient's use of biotin. [Automated mess age] The system whic h generated this result transmitted ref erence range: 0.45 - 4 .70 mIU/L. The refe rence range was not u sed to interpret this result as normal/abnor mal. Lab Interpretation (test Abnormal code = 09804-7) [facility]2020-[facility] 20:03:00 Test Item Value Reference Range Interpretation Comments APPEARANCE (test code = Hazy Clear A 7274168155) COLOR (test code = Yellow Yellow 2945020534) PH (test code = 4.8-8.0 9779646708) SP GRAVITY (test code = 1.003-1.030 4395581930) GLU U QUAL (test code = Normal Normal 1662613464) BLOOD (test code = 1+ Negative A 3181777185) KETONES (test code = Negative Negative 8900240859) PROTEIN (test code = Negative Negative 2887-8) UROBILIN (test code = 4.0 mg/dL Normal A 5877453408) BILIRUBIN (test code = Negative Negative 6441863713) NITRITE (test code = Negative Negative 1998362055) LEUK KEERTHI (test code = 75/uL Negative A 7190625906) RBC/HPF (test code = See_Comment H [Autom ated message] 6993745664) The system [employer] generated this result transmit kristie reference range : 0 - 3 HPF. The refe rence range was not u sed to interpret th is result as normal/abnormal . WBC/HPF (test code = See_Comment [Autom ated message] 1927943754) The system [employer] generated this result transmit kristie reference range : 0 - 5 HPF. The refe rence range was not u sed to interpret th is result as normal/abnormal . BACTERIA (test code = Few Negative A 3079985567) MUCOUS (test code = Slight Negative LPF A 0288179259) AMORPHOUS (test code = Rare Rare HPF 5278422319) SQ EPITH (test code = <1 See_Comment [Auto mated message] 9037780309) The system [employer] generated this result transmit kristie reference range : <=2 HPF. The refere nce range was not u sed to interpret th is result as normal/abnormal . Lab Interpretation (test Abnormal code = 03943-2) [facility] VW [id number] 17:23:00 Soft tissue swelling without an acute bony abnormality. EXAM: XR FOOT 3+ VW LEFT HISTORY: left lateral foot tenderness after slip and fall COMPARISON: None. FINDINGS: Mild soft tissue swelling is seenalong the lateral aspect of the foot.There is diffuse osteopenia. No acute fracture or dislocation isidentified. [facility], Radiant Results Inft User - 05/22/2019 11:24 AM CSTEXAM:XR FOOT 3+ VW LEFTHISTORY:left lateral foot tenderness after slip and fall COMPARISON:None.FINDINGS: Mild soft tissue swelling is seen along the lateral aspect of the foot.There is diffuse osteopenia. No acute fracture or dislocation isidentified.IMPRESSIONSoft tissue swelling without an acute bony abnormality. [facility] PELVIS WO [id number] 15:55:05 Prominent marrow edema in the left anterior acetabulum with associatedperiosteal edema. A nondisplaced fracture is possible. Mild bilateral ischial bursitis. Mild reactive marrow edema or contusion in the left ischial tuberosity. Atrophy of the right gluteus medius, gluteus minimus and tensor fascia latamuscles may be related to denervation. Feathery edema in the proximal aspect of the right gluteus medius andgluteus minimus muscles is suggestive of grade 1 muscle strain.EXAM: MRI PELVIS COMPARISON:Femur radiographs 05/19/2019 HISTORY: Pelvic fx, known or suspected Psb femoral neck fx TECHNIQUE AND FINDINGS: 3T OR 1.5T multiplanar multiweighted MR imaging of the pelvis was performedutilizing a limited fracture protocol. BONE AND JOINT: Marrow edema is seen in the left anterior acetabulum with mildsurroundingperiosteal edema. Mild marrow edema is seen in the left ischial tuberosityand in the right anterior superior iliac spine. Alignment is maintained at both hips, sacroiliac joints and pubicsymp hysis. Mild bilateral hip osteophytosis is seen with thinning of the hip articularcartilage. Trace hip joint fluid is present bilaterally. Degenerative changes are present in the partially visualized lower lumbarspine. LIGAMENTS AND TENDONS:Intermediate signal is seen within the hamstring tendon origins at theischial tuberosities bilaterally. Fluid accumulates in the right and leftischial bursae. SOFT TISSUES:Atrophy of the right gluteus medius, gluteus minimus and tensor fascia latamuscles is seen with mild edema in the proximal aspect of the muscles. The visualized femoral and sciatic neurovascular bundles are unremarkable. [facility], Radiant Results Inft User - 05/21/2019 9:56 AM CSTEXAM:MRI PELVISCOMPARISON:Femur radiographs 05/19/2019HISTORY: Pelvic fx, known or suspected Psb femoral neck fxTECHNIQUE AND FINDINGS:3T OR 1.5T multiplanar multiweighted MR imaging of the pelvis was performedutilizing a limited fracture protocol.BONE AND JOINT: Marrow edema is seen in the left anterior acetabulum withmild surroundingperiosteal edema. Mild marrow edema is seen in the left ischial tuberosityand in theright anterior superior iliac spine.Alignment is maintained at both hips, sacroiliac joints and pubicsymphysis.Mild bilateral hip osteophytosis is seen with thinning of the hip articularcartilage. Trace hip joint fluid is present bilaterally.Degenerative changes are present in the partially visualizedlower lumbarspine.LIGAMENTS AND TENDONS:Intermediate signal is seen within the hamstring tendon origins at theischial tuberosities bilaterally. Fluid accumulates in the right and leftischial bursae. SOFT TISSUES:Atrophy of the right gluteus medius, gluteus minimus and tensor fascia latamuscles is seenwith mild edema in the proximal aspect of the muscles.The visualized femoral and sciatic neurovascular bundles are unremarkable.IMPRESSIONProminent marrow edema in the left anterior acetabulum with associatedperiosteal edema. A nondisplaced fracture is possible.Mild bilateral ischial bursitis.Mild reactive marrow edema or contusion in the left ischial tuberosity.Atrophy of the right gluteus medius, gluteus minimus and tensor fascia latamuscles may be related to denervation.Feathery edema in the proximal aspect of the right gluteus medius andgluteus minimus muscles is suggestive of grade 1 muscle strain.[facility]+ VW [id number] 17:02:19 Remote lateral talar process fracture. Medial talar dome osteochondral defect. EXAM: XR ANKLE 3+ VWRIGHT HISTORY: right ankle pain after fall Abdirahman Scales is a 58 year oldfemale with right medial sided ankle pain after fall. Please obtain AP,lateral and mortise views of the right ankle. COMPARISON: None FINDINGS: Imaging of the ankle demonstrates an approximately 1 cm lucency outlined bysclerosis at the level of the medial talar dome with no kandice articularcollapse. Mild tibial talar osteophyte formation with subchondral sclerosisis seen. The ankle mortise is anatomic.No acute bony abnormality is present. A remote fracture deformity is seenthrough the lateral talar process. Subcortical cyst formation is seen atthe medial tarsometatarsal junction. [facility], Radiant Results Inft User - 05/20/2019 11:03 AM CSTEXAM:XR ANKLE 3+ VW RIGHTHISTORY:right ankle pain after fall Abdirahman Scales is a 58 year oldfemale with right medial sided ankle pain after fall. Please obtain AP,lateral and mortise views of the right ankle.COMPARISON:NoneFINDINGS: Imaging of the ankle demonstrates an javy roximately 1 cm lucency outlined bysclerosis at the level of the medial talar dome with no kandice articularcollapse. Mild tibial talar osteophyte formation with subchondral sclerosisis seen. The ankle mortise is anatomic.No acute bony abnormality is present. A remote fracture deformity is seenthrough the lateral talar process. Subcortical cyst formation is seen atthe medial tarsometatarsal junction.IMPRESSIONRemote lateral talar process fracture.Medial talar dome osteochondral defect.[facility] CONTRAST 2019-05-20 14:29:32 Comminuted impacted fracture of the medial tibial plateau that extends tothe medial intercondylar tubercle. Large hemarthrosis. Prepatellar abrasion with hyperdense material concerning for retainedforeign body. Correlation with physical exam is recommended. Findings were discussed with the orthopedics resident, Dr. Durand at11:35 PM, 05/19/2019. Preliminary Report Dictated by Resident: Susan Reyes MD., have reviewed this study and agree with the abovereport.EXAM: CT KNEE RIGHT WO CONTRAST HISTORY: tibia fracture With 3D reconstructions COMPARISON: Same day radiographs of the femur, knee, tibia and fibula TECHNIQUE: Noncontrast CT imaging of the knee was obtained along with coronal andsagittal reconstructions. 3-D reconstructions were also provided. FINDINGS: A comminuted, minimally displaced, impacted fracture of the medial tibialplateau is noted. The fracture extends to the medial tibial spine. A 4 mmdepression of the articular fractured fragment is noted (200:38) A 1.2 cm lucent subchondral bone lesion with a sclerotic rim in theposterior aspect of thelateral tibial plateau (3:17) most likelyrepresents a geode. A large suprapatellar joint effusion ispresent with layering hyperdensityand dependent fluid fluid level, consistent with hemarthrosis. Subcutaneous fat stranding is noted in the pretibial soft tissues andmedial compartment of the proximal leg. Proximal tibial abrasion ?is noted.Hyperdense material in the proximal/mid pretibial soft tissuemeasuring upto 3 mm on 3:102 and 3:122 may represent retained foreign body. Tricompartmental osteophytosis is seen with subchondral sclerosis and jointspace narrowing. Meniscal chondrocalcinosis is noted. [facility], Radiant Results Inft User - 05/20/2019 8:30 AM CSTEXAM: CT KNEE RIGHT WO CONTRASTHISTORY: tibia fracture With 3D reconstructionsCOMPARISON: Same day radiographs of the femur, knee, tibia and fibulaTECHNIQUE:Noncontrast CT imaging of the knee was obtained along with coronal andsagittal reconstructions. 3-D reconstructions were also provided.FINDINGS:A comminuted, minimally displaced, impactedfracture of the medial tibialplateau is noted. The fracture extends to the medial tibial spine. A 4 mmdepression of the articular fractured fragment is noted (200:38)A 1.2 cm lucent subchondral bone lesion with a sclerotic rim in theposterior aspect of the lateral tibial plateau (3:17) most likelyrepresents a geode.A large suprapatellar joint effusion is present with layering hyperdensityand dependent fluid fluid level, consistent with hemarthrosis.Subcutaneous fat stranding is noted in the pretibial soft tissues andmedial compartment of the proximal leg. Proximal tibial abrasion is noted.Hyperdense material in the proximal/mid pretibial soft tissue measuring upto 3 mm on 3:102 and 3:122 may represent retained foreign body.Tricompartmental osteophytosis is seen with subchondral sclerosis and jointspace narrowing. Meniscal chondrocalcinosis is noted.IMPRESSIONComminuted impacted fracture of the medial tibial plateau that extends tothe medial intercondylar tubercle.Large hemarthrosis.Prepatellar a brasion with hyperdense material concerning for retainedforeign body. Correlation with physical examis recommended.Findings were discussed with the orthopedics resident, Dr. Durand at11:35 PM, 05/19/2019.Preliminary Report Dictated by Resident: Dawit Rivera, Susan Perea MD., have reviewed this study and agree with the abovereport.[facility] CampusABORH [id number] 03:45:16 Test Item Value Reference Range Interpretation Comments ABO & RH (test code O Positive Performe d at [facility] = 20) Laboratory [facility] [address] [place] [address] Free: [phone] A No. [id number] [facility] CampusType and Screen - Type and Screen expires at midnight on the 3rd day after it was drawn. A current Type and Screen is required when RBCs are requested. For all other blood products, a Type and Screen performed during the current hospitalization i...2019-05-20 03:36:29 Test Item Value Reference Range Interpretation Comments ABO & RH (test code O Positive Performe d at [facility] = 20) Laboratory [facility] [place] [address] Free: [phone] A No. [id number] IAT (test code = Negative Performed a t [facility] 1185) Laboratory [facility] [place], [place] [address]Toll Free: [phone] A No. [id number] [facility] CampusBasic Metabolic Panel (NA, K, CL, CO2, GLUCOSE, BUN, CREATININE, CA)2019-05-20 03:13:00 Test Item Value Reference Range Interpretation Comments NA (test code = 141 mmol/L 135-145 6060180418) K (test code = 3.5 mmol/L 3.5-5 2734123842) CL (test code = 99 mmol/L 98-108 3838487811) CO2 TOTAL (test code = 36 mmol/L 23-31 H 7014016799) AGAP (test code = 2-16 4947568009) BUN (test code = 31 mg/dL 7-23 H 4515459297) GLUCOSE (test code = 128 mg/dL 70-110 H 0843140668) CREATININE (test code = 1.23 mg/dL 0.5-1.04 H 1620898707) CALCIUM (test code = 9.9 mg/dL 8.6-10.6 4956733707) eGFR Calculation mL/min/1.73m2 (Non-) (test code = 5355387245) eGFR Calculation mL/min/1.73m2 () (test code = 9280985783) TANNER (test code = TANNER) Association of Glomerular Filtration Rate (GFR) and Staging of Kidney Disease* + --+ --+ ------+| GFR (mL/min/1.73 m2) ?| With Kidney Damage ?| ?Without Kidney Damage+ --------+ --------+ +| ?>90 ?| ?Stage one ?| ? Normal ?+ ---+ ---+ -------+| ?60-89 ?| ?Stage two ?| ? Decreased GFR ? + --+ --+ ------+| ?30-59 ?| ?Stage three ?| ? Stage three ? + --+ --+ ------+| ?15-29 ?| ?Stage four ? | ? Stage four ?+ ---+ ---+ -------+| ?<15 (or dialysis) ? ?| ?Stage five ? | ? Stage five ?+ ---+ ---+ -------+ *Each stage assumes the associated GFR level has been in effect for at least three months. ?Stages 1 to 5, with or without kidney disease, indicate chronic kidney disease. Notes: Determination of stages one and two (with eGFR >59mL/min/1.73 m2) requires estimation of kidney damage for at least three months as defined by structural or functional abnormalities of the kidney, manifested by either:Pathological abnormalities or Markers of kidney damage (including abnormalities in the composition of the blood or urine or abnormalities in imaging tests). Lab Interpretation Abnormal (test code = 55274-9) [facility] CampusProthrombin Time (PT) / [id number] 03:11:00 Test Item Value Reference Range Interpretation Comments PROTIME PATIENT (test See_Comment H [Auto mated message] code = 5964-2) The system wh ich generated this result transmitted ref erence range: 12.0 - 1 4.7 Seconds. The reference range was not used to int erpret this result as normal/abnormal . INR (test code = 6301-6) Nor mal INR <1.1; Warfarin Therap eutic range 2.0 to 3. 0 or 2.5 to 3.5, dep ending upon the indica tions. Lab Interpretation (test Abnormal code = 99466-3) [facility] WITH [id number] 03:05:00 Test Item Value Reference Range Interpretation Comments WBC (test code = See_Comment [Automated 0190-2) message] The sy stem which generated this result transmitted reference range : 4.30 - 11.10 10*3/?L. The reference range was not used to interpret this result as normal/abnormal . RBC (test code = See_Comment [Automated 789-8) message] The sy stem which generated this result transmitted reference range : 3.93 - 5.25 10*6/?L. The reference range was not used to interpret this result as normal/abnormal . HGB (test code = 14.5 g/dL 11.6-15 718-7) HCT (test code = 43.0 % 35.7-45.2 4544-3) MCV (test code = 96.0 fL 80.6-95.5 H 787-2) MCH (test code = 32.4 pg 25.9-32.8 785-6) MCHC (test code = 33.7 g/dL 31.6-35.1 786-4) RDW-SD (test code = 46.8 fL 39-49.9 30501-5) RDW-CV (test code = 13.2 % 12-15.5 788-0) PLT (test code = See_Comment L [Automated 777-3) message] The sy stem which generated this result transmitted reference range : 166 - 358 10*3/ ?L. The reference r alec was not used to interpret this result as normal/abnormal . MPV (test code = 10.5 fL 9.5-12.9 77694-0) IPF % (test code = 2.3 % 1.3-7.7 Platelet count [id number]) measured by fluorescence method. NRBC/100 WBC (test See_Comment [Automat ed code = 3713679665) message] The system which generated this result transmitted reference range : 0.0 - 10.0 /100 WBCs. The refer ence range was not u sed to interpret th is result as normal/abnormal . NRBC x10^3 (test code <0.01 See_Comment [Auto mated = 6215976597) message] The s ystem which generated this result transmitted reference range : 10*3/?L. The reference range was not used to interpret this result as normal/abnormal . GRAN MAT (NEUT) % 58.6 % (test code = 770-8) IMM GRAN % (test code 0.20 % = 2463074735) LYMPH % (test code = 31.6 % 736-9) MONO % (test code = 6.9 % 5905-5) EOS % (test code = 1.8 % 713-8) BASO % (test code = 0.9 % 706-2) GRAN MAT x10^3(ANC) 2.64 10*3/uL 1.88-7.09 (test code = 1917593455) IMM GRAN x10^3 (test <0.03 0-0.06 code = 1495548459) LYMPH x10^3 (test code 1.42 10*3/uL 1.32-3.29 = 731-0) MONO x10^3 (test code 0.31 10*3/uL 0.33-0.92 L = 742-7) EOS x10^3 (test code = 0.08 10*3/uL 0.03-0.39 711-2) BASO x10^3 (test code 0.04 10*3/uL 0.01-0.07 = 704-7) Lab Interpretation Abnormal (test code = 23129-8) [facility] CampusBasi Metabolic [id number] 08:02:42 Test Item Value Reference Range Interpretation Comments Sodium Level (test code = Sodium 141.0 mmol/L 135.0-145.0 Level) Potassium Level (test code = 4.0 mmol/L 3.5-5.1 Potassium Level) Chloride Level (test code = 107 mmol/L 98-105 H Chloride Level) CO2 (test code = CO2) 23 mmol/L 22-29 Anion Gap (test code = Anion 11 mmol/L 7-16 Gap) BUN (test code = BUN) 17.50 mg/dL 6.00-20.00 Creatinine Level (test code = 0.80 mg/dL 0.50-0.90 Creatinine Level) BUN/Creat Ratio (test code = 22 N BUN/Creat Ratio) Glucose Level (test code = 105 mg/dL 70-115 Glucose Level) Calcium Level (test code = 9.6 mg/dL 8.3-10.5 Calcium Level) Basic Metabolic [id number] 08:02:42 Test Item Value Reference Range Interpretation Comments Sodium Level (test 141.0 mmol/L 135.0-145.0 code = Sodium Level) Potassium Level 4.0 mmol/L 3.5-5.1 (test code = Potassium Level) Chloride Level (test 107 mmol/L 98-105 H code = Chloride Level) CO2 (test code = 23 mmol/L 22-29 CO2) Anion Gap (test code 11 mmol/L 7-16 = Anion Gap) BUN (test code = 17.50 mg/dL 6.00-20.00 BUN) Creatinine Level 0.80 mg/dL 0.50-0.90 (test code = Creatinine Level) BUN/Creat Ratio 22 N (test code = BUN/Creat Ratio) Glucose Level (test 105 mg/dL 70-115 code = Glucose Level) Calcium Level (test 9.6 mg/dL 8.3-10.5 code = Calcium Level) eGFR AA (test code = >60 N eGFR (e stimated eGFR AA) mL/min/1.73 m2 Glomerular Filtration Rate ) is an estimated va lue, calculated from the patient's serum creatinine usin g the MDRD equation. It is NOT the patient 's actual GFR. The eGFR provides a more clinically usef ul measure of kidn ey disease than se rum creatinine alone.This calculation shu es sex and race in to account, if the information is provided. If th e race is not provided, and t he patient is -Jazz n, multiply by 1.2 12. If sex is not provided, and t he patient is fema le, multiply by 0.7 42. Results for pat ients <18 years of ag e have not been validated by th e MDRD study and should be interpreted wit h caution. eGFR R esult Interpretation: eGFR > or = 60 is in the Normal RangeeGF R < 60 may mean kid neyda diseaseeGFR < 1 5 may mean kidney failure Rang es recommended by the National Kidney Foundation, http://nkdep.ni h.gov Basic Metabolic [id number] 08:02:42 Test Item Value Reference Range Interpretation Comments Sodium Level (test 141.0 mmol/L 135.0-145.0 code = Sodium Level) Potassium Level 4.0 mmol/L 3.5-5.1 (test code = Potassium Level) Chloride Level (test 107 mmol/L 98-105 H code = Chloride Level) CO2 (test code = 23 mmol/L 22-29 CO2) Anion Gap (test code 11 mmol/L 7-16 = Anion Gap) BUN (test code = 17.50 mg/dL 6.00-20.00 BUN) Creatinine Level 0.80 mg/dL 0.50-0.90 (test code = Creatinine Level) BUN/Creat Ratio 22 N (test code = BUN/Creat Ratio) Glucose Level (test 105 mg/dL 70-115 code = Glucose Level) Calcium Level (test 9.6 mg/dL 8.3-10.5 code = Calcium Level) eGFR AA (test code = >60 N eGFR (e stimated eGFR AA) mL/min/1.73 m2 Glomerular Filtration Rate ) is an estimated va lue, calculated from the patient's serum creatinine usin g the MDRD equation. It is NOT the patient 's actual GFR. The eGFR provides a more clinically usef ul measure of kidn ey disease than se rum creatinine alone.This calculation shu es sex and race in to account, if the information is provided. If th e race is not provided, and t he patient is -Jazz n, multiply by 1.2 12. If sex is not provided, and t he patient is fema le, multiply by 0.7 42. Results for pat ients <18 years of ag e have not been validated by th e MDRD study and should be interpreted wit h caution. eGFR R esult Interpretation: eGFR > or = 60 is in the Normal RangeeGF R < 60 may mean kid neyda diseaseeGFR < 1 5 may mean kidney failure Rang es recommended by the National Kidney Foundation, http://nkdep.ni h.gov eGFR Non-AA (test >60.00 N eGFR (quiana mated code = eGFR Non-AA) mL/min/1.73 m2 Glomer ular Filtration Rate ) is an estimated va lue, calculated from the patient's serum creatinine usin g the MDRD equation. It is NOT the patient 's actual GFR. The eGFR provides a more clinically usef ul measure of kidn ey disease than se rum creatinine alone.This calculation shu es sex and race in to account, if the information is provided. If th e race is not provided, and t he patient is -Jazz n, multiply by 1.2 12. If sex is not provided, and t he patient is fema le, multiply by 0.7 42. Results for pat ients <18 years of ag e have not been validated by th e MDRD study and should be interpreted wit h caution. eGFR R esult Interpretation: eGFR > or = 60 is in the Normal RangeeGF R < 60 may mean kid neyda diseaseeGFR < 1 5 may mean kidney failure Rang es recommended by the National Kidney Foundation, http://nkdep.ni [place].gov RPR [id number] 22:03:54 Test Item Value Reference Range Interpretation Comments RPR Qual (test code = RPR Qual) Non-Reactive Non-Reactive Reactive Control (test code = Reactive Reactive Control) Weak Reactive Control (test Weak Reactive code = Weak Reactive Control) Non-Reactive Control (test code Non-Reactive = Non-Reactive Control) Lot # (test code = Lot #) [id number] Expiration Dt (test code = 01.15.2020 N Expiration Dt) Thyroid Stimulating [id number] 09:26:39 Test Item Value Reference Range Interpretation Comments TSH (test code = TSH) 0.132 mIU/mL 0.270-4.200 L Lipid [id number] 09:15:58 Test Item Value Reference Range Interpretation Comments Cholesterol Total 163 mg/dL 0-200 RISK OF HE ART (test code = DISEASEPublishe d by Cholesterol Total) [employer] Arun lyte Optimal Borderl ine Increased RiskC HOL <200 200-239 >240TRI G <150 150-199 >200HDL Male >60 <40HDL Fema le >60 <50LDL <100 130 -159 >160LDL Near op timal is 100-129 Triglycerides (test 124 mg/dL 9-200 code = Triglycerides) HDL (test code = HDL) 46 mg/dL 50-60 L LDL (test code = LDL) 92 mg/dL 0-130 The eq uation being used in this calcula tion is LDL = (Chol - H DL) - (Trig / 5) VLDL (test code = 25 mg/dL 5-40 The equati on being used VLDL) in this calcula tion is VLDL = Trig / 5 Chol/HDL (test code = 3.5 ratio 0.0-4.4 Chol/HDL) LDL/HDL Ratio (test 2 N The equa tion being used code = LDL/HDL Ratio) in thi s calculation is LDL/HDL Ratio=L DL Calc/HDL Chol Ammonia [id number] 08:56:07 Test Item Value Reference Range Interpretation Comments Ammonia Level (test code = 49.0 umol/L 11.0-35.0 H Ammonia Level) Thyroid Stimulating [id number] 11:34:53 Test Item Value Reference Range Interpretation Comments TSH (test code = TSH) 0.167 mIU/mL 0.270-4.200 L Alcohol [id number] 10:16:11 Test Item Value Reference Range Interpretation Comments Ethanol Level (test <0.00 g/dL 0.00-0.01 Intoxica kristie 0.080 g/dL code = Ethanol or more Level) Ethanol Inst (test <0 N code = Ethanol Inst) Comprehensive Metabolic [id number] 10:16:11 Test Item Value Reference Range Interpretation Comments Sodium Level (test 141.0 mmol/L 135.0-145.0 code = Sodium Level) Potassium Level 3.5 mmol/L 3.5-5.1 (test code = Potassium Level) Chloride Level (test 99 mmol/L 98-105 code = Chloride Level) CO2 (test code = 25 mmol/L 22-29 CO2) Anion Gap (test code 17 mmol/L 7-16 H = Anion Gap) BUN (test code = 23.90 mg/dL 6.00-20.00 H BUN) Creatinine Level 1.10 mg/dL 0.50-0.90 H (test code = Creatinine Level) BUN/Creat Ratio 22 N (test code = BUN/Creat Ratio) Glucose Level (test 127 mg/dL 70-115 H code = Glucose Level) Calcium Level (test 9.4 mg/dL 8.3-10.5 code = Calcium Level) Alk Phos (test code 208 U/L 35-104 H = Alk Phos) Bilirubin Total 1.0 mg/dL 0.1-0.9 H (test code = Bilirubin Total) Albumin Level (test 3.8 g/dL 3.5-5.2 code = Albumin Level) Protein Total (test 7.6 g/dL 6.4-8.3 code = Protein Total) ALT (test code = 47 U/L 1-33 H ALT) AST (test code = 75 U/L 1-32 H AST) Globulin (test code 3.8 g/dL 2.9-3.1 H = Globulin) A/G Ratio (test code 1.0 ratio N = A/G Ratio) eGFR AA (test code = >60 N eGFR (e stimated eGFR AA) mL/min/1.73 m2 Glomerular Filtration Rate ) is an estimated va lue, calculated from the patient's serum creatinine usin g the MDRD equation. It is NOT the patient 's actual GFR. The eGFR provides a more clinically usef ul measure of kidn ey disease than se rum creatinine alone.This calculation shu es sex and race in to account, if the information is provided. If th e race is not provided, and t he patient is -Jazz n, multiply by 1.2 12. If sex is not provided, and t he patient is fema le, multiply by 0.7 42. Results for pat ients <18 years of ag e have not been validated by th e MDRD study and should be interpreted wit h caution. eGFR R esult Interpretation: eGFR > or = 60 is in the Normal RangeeGF R < 60 may mean kid neyda diseaseeGFR < 1 5 may mean kidney failure Rang es recommended by the National Kidney Foundation, http://nkdep.ni h.gov eGFR Non-AA (test 50.67 N eGFR (quiana mated code = eGFR Non-AA) mL/min/1.73 m2 Glomer ular Filtration Rate ) is an estimated va lue, calculated from the patient's serum creatinine usin g the MDRD equation. It is NOT the patient 's actual GFR. The eGFR provides a more clinically usef ul measure of kidn ey disease than se rum creatinine alone.This calculation shu es sex and race in to account, if the information is provided. If th e race is not provided, and t he patient is -Jazz n, multiply by 1.2 12. If sex is not provided, and t he patient is fema le, multiply by 0.7 42. Results for pat ients <18 years of ag e have not been validated by th e MDRD study and should be interpreted wit h caution. eGFR R esult Interpretation: eGFR > or = 60 is in the Normal RangeeGF R < 60 may mean kid neyda diseaseeGFR < 1 5 may mean kidney failure Rang es recommended by the National Kidney Foundation, http://nkdep.ni h.gov Comprehensive Metabolic [id number] 10:16:11 Test Item Value Reference Range Interpretation Comments Sodium Level (test 141.0 mmol/L 135.0-145.0 code = Sodium Level) Potassium Level 3.5 mmol/L 3.5-5.1 (test code = Potassium Level) Chloride Level (test 99 mmol/L 98-105 code = Chloride Level) CO2 (test code = 25 mmol/L 22-29 CO2) Anion Gap (test code 17 mmol/L 7-16 H = Anion Gap) BUN (test code = 23.90 mg/dL 6.00-20.00 H BUN) Creatinine Level 1.10 mg/dL 0.50-0.90 H (test code = Creatinine Level) BUN/Creat Ratio 22 N (test code = BUN/Creat Ratio) Glucose Level (test 127 mg/dL 70-115 H code = Glucose Level) Calcium Level (test 9.4 mg/dL 8.3-10.5 code = Calcium Level) Alk Phos (test code 208 U/L 35-104 H = Alk Phos) Bilirubin Total 1.0 mg/dL 0.1-0.9 H (test code = Bilirubin Total) Albumin Level (test 3.8 g/dL 3.5-5.2 code = Albumin Level) Protein Total (test 7.6 g/dL 6.4-8.3 code = Protein Total) ALT (test code = 47 U/L 1-33 H ALT) AST (test code = 75 U/L 1-32 H AST) Globulin (test code 3.8 g/dL 2.9-3.1 H = Globulin) A/G Ratio (test code 1.0 ratio N = A/G Ratio) eGFR AA (test code = >60 N eGFR (e stimated eGFR AA) mL/min/1.73 m2 Glomerular Filtration Rate ) is an estimated va lue, calculated from the patient's serum creatinine usin g the MDRD equation. It is NOT the patient 's actual GFR. The eGFR provides a more clinically usef ul measure of kidn ey disease than se rum creatinine alone.This calculation shu es sex and race in to account, if the information is provided. If th e race is not provided, and t he patient is -Jazz n, multiply by 1.2 12. If sex is not provided, and t he patient is fema le, multiply by 0.7 42. Results for pat ients <18 years of ag e have not been validated by th e MDRD study and should be interpreted wit h caution. eGFR R esult Interpretation: eGFR > or = 60 is in the Normal RangeeGF R < 60 may mean kid neyda diseaseeGFR < 1 5 may mean kidney failure Rang es recommended by the National Kidney Foundation, http://nkdep.ni h.gov Creatine [id number] 10:16:11 Test Item Value Reference Range Interpretation Comments CK (test code = CK) 158 U/L 26-192 Comprehensive Metabolic [id number] 10:16:11 Test Item Value Reference Range Interpretation Comments Sodium Level (test 141.0 mmol/L 135.0-145.0 code = Sodium Level) Potassium Level 3.5 mmol/L 3.5-5.1 (test code = Potassium Level) Chloride Level (test 99 mmol/L 98-105 code = Chloride Level) CO2 (test code = 25 mmol/L 22-29 CO2) Anion Gap (test code 17 mmol/L 7-16 H = Anion Gap) BUN (test code = 23.90 mg/dL 6.00-20.00 H BUN) Creatinine Level 1.10 mg/dL 0.50-0.90 H (test code = Creatinine Level) BUN/Creat Ratio 22 N (test code = BUN/Creat Ratio) Glucose Level (test 127 mg/dL 70-115 H code = Glucose Level) Calcium Level (test 9.4 mg/dL 8.3-10.5 code = Calcium Level) Alk Phos (test code 208 U/L 35-104 H = Alk Phos) Bilirubin Total 1.0 mg/dL 0.1-0.9 H (test code = Bilirubin Total) Albumin Level (test 3.8 g/dL 3.5-5.2 code = Albumin Level) Protein Total (test 7.6 g/dL 6.4-8.3 code = Protein Total) ALT (test code = 47 U/L 1-33 H ALT) AST (test code = 75 U/L 1-32 H AST) Globulin (test code 3.8 g/dL 2.9-3.1 H = Globulin) A/G Ratio (test code 1.0 ratio N = A/G Ratio) eGFR AA (test code = >60 N eGFR (e stimated eGFR AA) mL/min/1.73 m2 Glomerular Filtration Rate ) is an estimated va lue, calculated from the patient's serum creatinine usin g the MDRD equation. It is NOT the patient 's actual GFR. The eGFR provides a more clinically usef ul measure of kidn ey disease than se rum creatinine alone.This calculation shu es sex and race in to account, if the information is provided. If th e race is not provided, and t he patient is -Jazz n, multiply by 1.2 12. If sex is not provided, and t he patient is fema le, multiply by 0.7 42. Results for pat ients <18 years of ag e have not been validated by th e MDRD study and should be interpreted wit h caution. eGFR R esult Interpretation: eGFR > or = 60 is in the Normal RangeeGF R < 60 may mean kid neyda diseaseeGFR < 1 5 may mean kidney failure Rang es recommended by the National Kidney Foundation, http://nkdep.ni h.gov eGFR Non-AA (test 50.67 N eGFR (quiana mated code = eGFR Non-AA) mL/min/1.73 m2 Glomer ular Filtration Rate ) is an estimated va lue, calculated from the patient's serum creatinine usin g the MDRD equation. It is NOT the patient 's actual GFR. The eGFR provides a more clinically usef ul measure of kidn ey disease than se rum creatinine alone.This calculation shu es sex and race in to account, if the information is provided. If th e race is not provided, and t he patient is -Jazz n, multiply by 1.2 12. If sex is not provided, and t he patient is fema le, multiply by 0.7 42. Results for pat ients <18 years of ag e have not been validated by th e MDRD study and should be interpreted wit h caution. eGFR R esult Interpretation: eGFR > or = 60 is in the Normal RangeeGF R < 60 may mean kid neyda diseaseeGFR < 1 5 may mean kidney failure Rang es recommended by the National Kidney Foundation, http://nkdep.ni h.gov Urinalysis [id number] 10:13:42 Test Item Value Reference Range Interpretation Comments UA WBC (test code = UA WBC) 11-19 0-5 A UA RBC (test code = UA RBC) 0-5 0-5 UA Bacteria (test code = UA Bacteria) Few A UA Squam Epithelial (test code = UA 11-19 A Squam Epithelial) Urine Drug [id number] 10:08:49 Test Item Value Reference Range Interpretation Comments Amphetamine Screen Ur POSITIVE Negative A (test code = Amphetamine Screen Ur) Barbiturate Screen Ur Negative Negative (test code = Barbiturate Screen Ur) Benzodiazepines Ur (test Negative Negative code = Benzodiazepines Ur) Cocaine Screen Ur (test Negative Negative code = Cocaine Screen Ur) U Methadone Scr (test Negative Negative code = U Methadone Scr) Opiate Screen Ur (test Negative Negative code = Opiate Screen Ur) U PCP Scrn (test code = Negative Negative U PCP Scrn) Cannabinoid Screen Ur Negative Negative (test code = Cannabinoid Screen Ur) U TCA (test code = U Negative Negative The res ults of all TCA) drug screen rachell ts are only preliminar y. Clinical consideration a nd professional ju dgment should be appli ed to any drug of abu se test result, particularly wh en preliminary pos itive results are obt ained. Please order a separate confir matory test if desired . Urinalysis with Microscopic if [id number] 09:49:58 Test Item Value Reference Range Interpretation Comments UA Color (test code = YELLO Yellow UA Color) UA Appear (test code = CLEAR Clear UA Appear) UA pH (test code = UA 5 N pH) UA Spec Grav (test 1.012 1.001-1.035 code = UA Spec Grav) UA Glucose (test code NEG Negative = UA Glucose) UA Ketones (test code NEG Negative = UA Ketones) UA Blood (test code = 25 cells/mcL Negative A UA Blood) UA Protein (test code NEG Negative = UA Protein) UA Bili (test code = NEG Negative UA Bili) UA Urobilinogen (test 0.2 mg/dL N code = UA Urobilinogen) UA Nitrite (test code NEG Negative = UA Nitrite) UA Leuk Est (test code 500 cells/mcL Negative A = UA Leuk Est) UA Micro Ind? (test Indicated Not Indicated A Result created by code = UA Micro Ind?) rule GL_SJM_UA_MICRO _IN D Complete Blood Count with [id number] 09:36:45 Test Item Value Reference Range Interpretation Comments WBC (test code = WBC) 6.3 x10 4.4-10.5 RBC (test code = RBC) 4.44 x10 3.75-5.20 Hgb (test code = Hgb) 14.7 g/dL 12.2-14.8 MCV (test code = MCV) 98.40 fL 80.00-100.00 Hct (test code = Hct) 43.7 % 36.5-44.4 MCHC (test code = 33.60 g/dL 32.00-37.50 MCHC) RDW CV (test code = 13.5 % 11.5-14.5 RDW CV) MCH (test code = MCH) 33.1 pg 27.0-32.5 H Platelets (test code = 109.0 x10 140.0-440.0 L Platelets) MPV (test code = MPV) 10.6 fL N Slide Review (test Auto Auto Result cr eated by code = Slide Review) GL_SJM_ SLIDE_REV_AUTO GL_SJM_XN_RFLX GL_SJM_XN_RFLX nRBC (test code = 0 N nRBC) NRBC Abs (test code = 0.00 x10 N NRBC Abs) Pos Count XN (test A N code = Pos Count XN) IPF (test code = IPF) 2 % N Complete Blood Count with [id number] 09:36:45 Test Item Value Reference Range Interpretation Comments WBC (test code = WBC) 6.3 x10 4.4-10.5 RBC (test code = RBC) 4.44 x10 3.75-5.20 Hgb (test code = Hgb) 14.7 g/dL 12.2-14.8 MCV (test code = MCV) 98.40 fL 80.00-100.00 Hct (test code = Hct) 43.7 % 36.5-44.4 MCHC (test code = 33.60 g/dL 32.00-37.50 MCHC) RDW CV (test code = 13.5 % 11.5-14.5 RDW CV) MCH (test code = MCH) 33.1 pg 27.0-32.5 H Platelets (test code = 109.0 x10 140.0-440.0 L Platelets) MPV (test code = MPV) 10.6 fL N Slide Review (test Auto Auto Result cr eated by code = Slide Review) GL_SJM_ SLIDE_REV_AUTO GL_SJM_XN_RFLX GL_SJM_XN_RFLX nRBC (test code = 0 N nRBC) NRBC Abs (test code = 0.00 x10 N NRBC Abs) IPF (test code = IPF) 2 % N Automated [id number] 09:36:45 Test Item Value Reference Range Interpretation Comments Neutro Auto (test code = Neutro 46.5 % 36.0-70.0 Auto) Lymph Auto (test code = Lymph Auto) 41.6 % 12.0-44.0 [place] Auto (test code = [place] Auto) 7.7 % 0.0-11.0 Eos, Auto (test code = Eos, Auto) 3.2 % 0.0-7.0 Basophil Auto (test code = Basophil 0.8 % 0.0-2.0 Auto) Neutro Absolute (test code = Neutro 2.9 x10 1.6-7.4 Absolute) Lymph Absolute (test code = Lymph 2.61 x10 .50-4.60 Absolute) [place] Absolute (test code = [place] .48 x10 .00-1.20 Absolute) Eos Absolute (test code = Eos 0.20 x10 0.00-0.74 Absolute) Baso Absolute (test code = Baso 0.05 x10 0.00-0.21 Absolute) IG [id number] 09:36:45 Test Item Value Reference Range Interpretation Comments IG (test code = IG) 0.2 % 0.0-5.0 IG Abs (test code = IG Abs) 0 x10 N
[2022-10-05 19:50] LABS: Absolute Lymphocytes (CBC) 1.5 K/uL (0.7-4.9); Hematocrit 36.2 % (36.0-45.0); Lymphocytes % 15.4 % (15.3-44.8); MCV 78.3 fL (80-100); MPV 8.6 fL (7.6-11.3); RBC Red Blood Cell Count 4.62 M/uL (3.86-4.86)
[2022-10-05 19:53] LABS: Potassium 2.8 mEq/L (3.5-5.1)
--- NOTE | 2022-10-05 20:37 | RAD REPORT ---
EXAM DESCRIPTION: RAD - Hip Right 2 View - 10/05/2022 8:09 pm CLINICAL HISTORY: Right hip pain FINDINGS: Intertrochanteric fracture right femur. Fracture fragments by 9 millimeters. Les ser trochanter avulsed medially. No dislocation
[2022-10-05] MEDS ORDERED: MORPHINE 4 MG/ML SYR ONE (20:38)
--- NOTE | 2022-10-05 20:54 | ER ---
Nurse's Notes [facility] Name: Cherry Scales Age: 61 yrs Sex: Female : 1960 Arrival Date: 10/05/2022 Time: 19:12 Bed 16 Private MD: Diagnosis: Intertrochanteric fracture of femur;Fall on same level, unspecified;Essential (primary) hypertension Presentation: 10/05 19:14 Chief complaint: EMS states: toned out to pt home for fall. Pt reports falling at home ld1 on right hip. Upon arrival to pt home - c/o severe pain to right hip. Denies LOC - did not hit head, not on blood thinners. Coronavirus screen: At this time, the client does not indicate any symptoms associated with coronavirus-19. Ebola Screen: No symptoms or risks identified at this time. Initial Sepsis Screen: Does the patient meet any 2 criteria? No. Patient's initial sepsis screen is negative. Does the patient have a suspected source of infection? No. Patient's initial sepsis screen is negative. Risk Assessment: Do you want to hurt yourself or someone else? Patient reports no desire to harm self or others. Onset of symptoms was October 05, 2022. 19:14 Method Of Arrival: EMS: [facility] EMS ld1 19:14 Acuity: ALEK 3 ld1 Triage Assessment: 19:16 General: Appears in no apparent distress. uncomfortable, Behavior is calm, cooperative, ld1 appropriate for age. Pain: Complains of pain in right hip Pain does not radiate. Pain currently is 9 out of 10 on a pain scale. Quality of pain is described as throbbing, Pain began suddenly. EENT: No signs and/or symptoms were reported regarding the EENT system. Neuro: Level of Consciousness is awake, alert, obeys commands, Oriented to person, place, time, situation. Cardiovascular: Capillary refill < 3 seconds Patient's skin is warm and dry. Respiratory: Airway is patent Respiratory effort is even, unlabored. GI: Abdomen is round non-distended. : No signs and/or symptoms were reported regarding the genitourinary system. Derm: No signs and/or symptoms reported regarding the dermatologic system. Musculoskeletal: No signs and/or symptoms reported regarding the musculoskeletal system. Historical: - Allergies: 19:16 "all pain pills"; ld1 19:16 Aspirin; ld1 19:16 Codeine; ld1 19:16 PENICILLINS; ld1 19:16 tulips; ld1 19:16 Vicodin; ld1 - PMHx: 19:16 Hepatitis; Hypothyroidism; ld1 - PSHx: 19:16 arm; section; eye; ld1 - Immunization history:: Adult Immunizations up to date. - Social history:: Smoking status: Patient reports the use of cigarette tobacco products, smokes one-half pack cigarettes per day, Patient/guardian denies using alcohol. Screenin:19 [facility] ED Fall Risk Assessment (Adult) History of falling in the last 3 months, ld1 including since admission No falls in past 3 months (0 pts). Abuse screen: Denies threats or abuse. Denies injuries from another. Nutritional screening: No deficits noted. Tuberculosis screening: No symptoms or risk factors identified. Assessment: 19:19 Reassessment: See triage assessment. ld1 20:26 Reassessment: No changes from previously documented assessment. Patient and/or family ld1 updated on plan of care and expected duration. Pain level reassessed. Patient is alert, oriented x 3, equal unlabored respirations, skin warm/dry/pink. Patient states symptoms have not improved. Vital Signs: 19:14 BP 143 / 82; Pulse 87; Resp 18; Temp 98.7(TE); Pulse Ox 99% on R/A; Weight 77.11 kg; ld1 Height 5 ft. 6 in. ; Pain 9/10; 20:26 BP 153 / 70; Pulse 86; Resp 18; Pulse Ox 97% on R/A; ld1 21:16 BP 163 / 79; Pulse 85; Resp 16; Pulse Ox 100% on R/A; sg5 22:56 BP 150 / 68; Pulse 82; Resp 18; Pulse Ox 98% on R/A; sg5 19:14 Body Mass Index 27.44 (77.11 kg, 167.64 cm) ld1 19:14 Pain Scale: Adult ld1 ED Course: 19:14 Patient arrived in ED. ld1 19:14 Sid Gonzales DO is Attending Physician. ms3 19:16 Triage completed. ld1 19:16 Arm band placed on right wrist. ld1 19:19 Patient has correct armband on for positive identification. Placed in gown. Bed in low ld1 position. Call light in reach. Side rails up X2. spool hauler on. Pulse ox on. NIBP on. Door closed. Noise minimized. Warm blanket given. 19:19 No provider procedures requiring assistance completed. Maintain EMS IV. Dressing ld1 intact. Good blood return noted. Site clean \\T\\ dry. Gauge \\T\\ site: 20G LFA. 19:20 Cris Gonzales, RN is Primary Nurse. ld1 19:44 BMP Sent. ld1 19:44 CBC with Diff Sent. ld1 20:11 Hip Right 2 View XRAY In Process Unspecified. EDMS 20:53 Tobi Childers MD is Hospitalizing Provider. ms3 22:00 Marco Weller MD is Hospitalizing Provider. la1 22:12 Knee Left 3 View XRAY In Process Unspecified. EDMS 22:41 Inserted saline lock: 22 gauge in right antecubital area, using aseptic technique. sg5 22:58 Valera cath inserted, using sterile technique, 16 Fr., by ED staff, balloon inflated, to sg5 gravity drainage. Administered Medications: 20:32 Drug: morphine IVP or IV 4 mg Route: IVP; Infused Over: 4 mins; Site: left forearm; ld1 21:58 Drug: Potassium PO Effervescent Tablet 50 mEq Route: PO; sg5 21:58 Drug: NS 0.9% IV 1000 ml Route: IV; Rate: 125 ml/hr; Site: left forearm; sg5 21:58 Drug: Potassium Chloride IV 20 mEq Route: IV; Rate: calculated rate; Site: left forearm;sg5 22:41 Drug: morphine IVP or IV 2 mg Route: IVP; Infused Over: 4 mins; Site: right antecubital;sg5 Medication: 19:19 VIS not applicable for this client. ld1 Output: 22:59 Urine: 300ml (Valera); Total: 300ml. sg5 Outcome: 20:53 Decision to Hospitalize by Provider. ms3 23:14 Patient left the ED. sg5 Signatures: Dispatcher [employer] EDMS César Nguyen, HOSE SEAMER-C HOSE SEAMER-Cla1 Sid Gonzales, DO ms3 Cirs Gonzales RN RN ld1 Chantale Moncada RN RN sg5
--- NOTE | 2022-10-05 20:54 | EDPHYS ---
Physician Documentation [facility] Name: Cherry Scales Age: 61 yrs Sex: Female : 1960 Arrival Date: 10/05/2022 Time: 19:12 Bed 16 Private MD: ED Physician Sid Gonzales HPI: 10/05 19:44 This 61 yrs old Female presents to ER via EMS with complaints of Hip Injury, Fall ms3 Injury. 19:44 61-year-old female with past medical history of hepatitis C, hypothyroidism, narcolepsy ms3 presents for right hip pain status post fall 2-1/2 hours prior to arrival. Patient presents via [facility]. EMS notes patient was given 75 mcg of fentanyl, 4 mg Zofran. EMS noted patient's glucose to be 200. Patient states she was pushing her safe that he is resanding onto a toolbox when she lost her balance causing her fall. Patient rates her pain a 9/10. Patient denies alleviating or inciting factors.. Historical: - Allergies: 19:16 "all pain pills"; ld1 19:16 Aspirin; ld1 19:16 Codeine; ld1 19:16 PENICILLINS; ld1 19:16 tulips; ld1 19:16 Vicodin; ld1 - PMHx: 19:16 Hepatitis; Hypothyroidism; ld1 - PSHx: 19:16 arm; section; eye; ld1 - Immunization history:: Adult Immunizations up to date. - Social history:: Smoking status: Patient reports the use of cigarette tobacco products, smokes one-half pack cigarettes per day, Patient/guardian denies using alcohol. ROS: 19:44 Constitutional: Negative for fever, and chills. Neck: Negative for injury, pain, and ms3 swelling, Cardiovascular: Negative for chest pain, and palpitations. Respiratory: Negative for shortness of breath, cough, wheezing, and pleuritic chest pain, Abdomen/GI: Negative for abdominal pain, nausea, vomiting, diarrhea, and constipation, Skin: Negative for injury, rash, and discoloration, Neuro: Negative for headache, weakness, numbness, tingling. Psych: Negative for depression, anxiety, suicide ideation, homicidal ideation, and hallucinations. 19:44 MS/extremity: Positive for pain, of the right hip. 19:44 All other systems are negative. Exam: 19:44 Constitutional: This is a well developed, well nourished patient who is awake, alert, ms3 and in no acute distress. Head/Face: Normocephalic, atraumatic. Neck: Trachea midline, no cervical lymphadenopathy. Supple, full range of motion without nuchal rigidity, or vertebral point tenderness. No Meningismus. Chest/axilla: Normal chest wall appearance and motion. Nontender with no deformity. Cardiovascular: Regular rate and rhythm with a normal S1 and S2. No gallops, murmurs, or rubs. Normal PMI, no JVD. No pulse deficits. Respiratory: Lungs have equal breath sounds bilaterally, clear to auscultation and percussion. No rales, rhonchi or wheezes noted. No increased work of breathing, no retractions or nasal flaring. Abdomen/GI: Soft, non-tender, with normal bowel sounds. No distension or tympany. No guarding or rebound. No evidence of tenderness throughout. Skin: Warm, dry with normal turgor. Normal color with no rashes, no lesions, and no evidence of cellulitis. 19:44 Musculoskeletal/extremity: Extremities: noted in the right hip: pain, tenderness, Right foot short and externally rotated. 19:47 ECG was reviewed by the Attending Physician. ms3 Vital Signs: 19:14 BP 143 / 82; Pulse 87; Resp 18; Temp 98.7(TE); Pulse Ox 99% on R/A; Weight 77.11 kg; ld1 Height 5 ft. 6 in. ; Pain 9/10; 20:26 BP 153 / 70; Pulse 86; Resp 18; Pulse Ox 97% on R/A; ld1 21:16 BP 163 / 79; Pulse 85; Resp 16; Pulse Ox 100% on R/A; sg5 22:56 BP 150 / 68; Pulse 82; Resp 18; Pulse Ox 98% on R/A; sg5 19:14 Body Mass Index 27.44 (77.11 kg, 167.64 cm) ld1 19:14 Pain Scale: Adult ld1 MDM: 19:14 Patient medically screened. ms3 10/06 00:23 Differential diagnosis: hip fracture, intertrochanteric fracture, femoral neck ms3 fracture. Data reviewed: vital signs, nurses notes, lab test result(s), EKG, radiologic studies, and as a result, I will admit patient. Consideration of Admission/Observation Patient was admitted/placed on observation. Management of patient was discussed with the following: Hospitalist: César Nguyen NP. Portrait Consultant: Dr Mac Lozano- Orthopedics. I considered the following discharge prescriptions or medication management in the emergency department Medications were administered in the Emergency Department. See MAR. Independent interpretation of the following test(s) in the Emergency Department EKG: See my EKG interpretation above. Historians other than the Patient: EMS: [facility]. Care significantly affected by the following chronic conditions: Hepatitis. Counseling: I had a detailed discussion with the patient and/or guardian regarding: the historical points, exam findings, and any diagnostic results supporting the discharge/admit diagnosis, lab results, radiology results, the need for further work-up and treatment in the hospital. Response to treatment: the patient's symptoms have mildly improved after treatment, and as a result, I will admit patient. 10/05 19:18 Order name: CBC with Diff; Complete Time: 20:13 ms3 10/05 19:18 Order name: BMP; Complete Time: 20:13 ms3 10/05 21:33 Order name: LFT's; Complete Time: 22:28 la1 10/05 21:33 Order name: PT-INR; Complete Time: 22:21 la1 10/05 19:18 Order name: Hip Right 2 View XRAY; Complete Time: 20:45 ms3 10/05 21:50 Order name: Knee Left 3 View XRAY; Complete Time: 22:31 la1 10/05 19:18 Order name: EKG; Complete Time: 19:19 ms3 10/05 19:18 Order name: EKG - Nurse/Tech; Complete Time: 19:44 ms3 10/05 21:54 Order name: Valera la1 EC/22 19:47 Rate is 86 beats/min. Rhythm is regular. QRS [place] is Normal. [place] interval is normal. QRS ms3 interval is normal. Clinical impression: Normal ECG. Interpreted by me. Reviewed by me. Administered Medications: 20:32 Drug: morphine IVP or IV 4 mg Route: IVP; Infused Over: 4 mins; Site: left forearm; ld1 21:58 Drug: Potassium PO Effervescent Tablet 50 mEq Route: PO; sg5 21:58 Drug: NS 0.9% IV 1000 ml Route: IV; Rate: 125 ml/hr; Site: left forearm; sg5 21:58 Drug: Potassium Chloride IV 20 mEq Route: IV; Rate: calculated rate; Site: left forearm;sg5 22:41 Drug: morphine IVP or IV 2 mg Route: IVP; Infused Over: 4 mins; Site: right antecubital;sg5 Disposition Summary: 10/05/22 20:53 Hospitalization Ordered Hospitalization Status: Inpatient Admission ms3 Location: Telemetry/MedSurg (Inpatient) ms3 Condition: Stable ms3 Problem: new ms3 Symptoms: are unchanged ms3 Bed/Room Type: Standard ms3 Provider: Marco Weller(10/05/22 22:00) [place] Room Assignment: [facility](10/05/22 22:16) cg Diagnosis - Intertrochanteric fracture of femur ms3 - Fall on same level, unspecified ms3 - Essential (primary) hypertension ms3 Forms: - Medication Reconciliation Form ms3 - SBAR form ms3 Signatures: Dispatcher [employer] EDCésar Kwong, PACKERHEAD MACHINE OPERATOR-C PACKERHEAD MACHINE OPERATOR-Cla1 Keiry Lieberman, MAKENZIE RN cg Sid Gonzales, DO ms3 Cris Gonzales RN RN ld1 Chantale Moncada RN RN sg5 Corrections: (The following items were deleted from the chart) 22:00 20:53 Tobi Childers ms3 la1 22:16 20:53 ms3 cg
[2022-10-05] MEDS ORDERED: POTASSIUM 25 MEQ EFFERV TAB ONE (21:57)
[2022-10-05] MEDS ORDERED: NA CHLORIDE 0.9% 1,000 ML ONE (21:57)
[2022-10-05] MEDS ORDERED: KCL 20 MEQ/100 mL IVPB 100 ML IV ONE (21:57)
[2022-10-05 22:13] LABS: Protime INR 1.21
[2022-10-05] MEDS ORDERED: MORPHINE 2 MG/ML SYR ONE (22:13)
[2022-10-05 22:25] LABS: Albumin 3.2 g/dL (3.4-5.0); Bilirubin Direct 0.1 mg/dL (0-0.2); Bilirubin Indirect, Calculated 0.2 mg/dL (0.2-0.8); Bilirubin Total 0.3 mg/dL (0.2-1.0); Protein, Total 7.5 g/dL (6.4-8.2)
--- NOTE | 2022-10-05 22:25 | P.HP ---
Certification for Inpatient Patient admitted to: Inpatient With expected LOS: >2 Midnights Patient will require the following post-hospital care: None Practitioner: I am a practitioner with admitting privileges, knowledge of patient current condition, hospital course, and medical plan of care. Services: Services provided to patient in accordance with Admission requirements found in Title 42 Section 412.3 of the Code of Federal Regulations Patient History Date of Service: 10/05/22 Reason for admission: Right hip fracture History of Present Illness: 61-year-old female with history of hepatitis C, hypothyroidism, and narcolepsy presents to the emergency department with mechanical fall, right hip pain. She reports that she was trying to move a large object when she fell backwards and injured her right hip. She was evaluated in the emergency department her x-ray shows intertrochanteric fracture of the right femur. Fracture fragments by 9 mm. Lesser trochanter avulsed medially. Labs show hemoglobin 11.4 hematocrit 36.2 INR 1.21 potassium 2.8 creatinine 1.39 GFR 43 glucose 177. ED physician spoke with orthopedic on-call who will see patient in the morning, plan for surgery. N.p.o. after midnight. Allergies acetaminophen [From Vicodin] Allergy (Intermediate, Verified 09/07/11 10:29) severe headache hydrocodone bitartrate [From Vicodin] Allergy (Intermediate, Verified 09/07/11 10:29) severe headache meperidine HCl [From Demerol] Allergy (Intermediate, Verified 09/07/11 10:29) severe headache Penicillins Allergy (Mild, Verified 09/07/11 10:29) Hives codeine Allergy (Verified 11/30/15 18:26) Unknown aspirin Adverse Reaction (Intermediate, Verified 09/07/11 10:29) nausea chocolate Allergy (Severe, Uncoded 09/08/11 16:26) Shortness of breath "all pain Allergy (Uncoded 11/29/15 22:23) Unknown "all pain pills" Allergy (Uncoded 03/28/17 21:19) Unknown tulips Allergy (Uncoded 03/28/17 21:19) Unknown Home Medications: Calcium Carbonate/Vitamin D3 [Calcium 500 + Vit D 400 Tablet] 1 tab PO DAILY 03/28/17 Dextroamphetamine/Amphetamine [Adderall Xr 30 mg Capsule] 30 mg PO DAILY 01/12/18 Famotidine [Pepcid*] 40 mg PO DAILY 03/28/17 Levothyroxine [Synthroid*] 0.125 mg PO DAILY 03/28/17 Torsemide [Demadex*] 20 mg PO DAILY 03/28/17 Amlodipine [Norvasc*] 10 mg PO DAILY #30 tab 04/05/17 Levofloxacin [Levaquin] 500 mg PO DAILY #5 tablet 04/05/17 carvediloL [Coreg*] 25 mg PO BID 6AM 6PM #60 tab 04/05/17 - Past Medical/Surgical History Diabetic: No -: Hypothyroidism -: Narcolepsy -: Hepatitis C -: Hypokalemia -: tonsillectomy -: arm sx Psychosocial/ Personal History: Patient lives at home with family - Family History Father -: Diabetes Mother -: Diabetes - Social History Smoking Status: Current every day smoker Smoking therapy provided: No Alcohol use: No CD- Drugs: No Caffeine use: Yes Place of Residence: Home Review of Systems 10-point ROS is otherwise unremarkable Musculoskeletal: Leg Pain, As per HPI Physical Examination - Physical Exam General: Alert, In no apparent distress, Oriented x3 HEENT: Atraumatic, PERRLA, Mucous membr. moist/pink, EOMI, Sclerae nonicteric Neck: Supple, 2+ carotid pulse no bruit, No LAD, Without JVD or thyroid abnormality Respiratory: Clear to auscultation bilaterally, Normal air movement Cardiovascular: Regular rate/rhythm, Normal S1 S2 Gastrointestinal: Normal bowel sounds, No tenderness Musculoskeletal: Other (Right leg externally rotated and shortened) Integumentary: No rashes Neurological: Normal gait, Normal speech, Normal strength at 5/5 x4 extr, Normal tone, Normal affect Lymphatics: No axilla or inguinal lymphadenopathy - Studies Laboratory Data (last 24 hrs) 10/05/22 21:56: PT 13.3 H, INR 1.21 10/05/22 19:27: Sodium 137, Potassium 2.8 L, BUN 22 H, Creatinine 1.39 H, Glucose 177 H 10/05/22 19:27: WBC 9.90, Hgb 11.4 L, Hct 36.2, Plt Count 151 L Assessment and Plan - Plan Assessment: Right intertrochanteric femur fracture Hypokalemia Hyperglycemia Hepatitis C Narcolepsy Hypothyroidism Plan: Right intertrochanteric femur fracture N.p.o. after midnight, as needed pain medications, orthopedics consult. Hypokalemia Replaced in ED, protocol in place. Hyperglycemia Glucose 177 no known history of diabetes obtain A1c. If blood sugars are persistently elevated will add sliding scale insulin. Hepatitis C Known history of hepatitis C, INR 1.21, LFTs ordered now and pending. Narcolepsy Hypothyroidism Continue home medications. DVT PPX: SCD Code status: Full Discharge Plan: Home Plan to discharge in: Greater than 2 days - Advance Directives Does patient have a Living Will: No Does patient have a Durable POA for Healthcare: No - Code Status/Comfort Care Code Status Assessed: Yes (Full code) Critical Care: No Time Spent Managing Pts Care (In Minutes): 55
--- NOTE | 2022-10-05 22:28 | RAD REPORT ---
EXAM DESCRIPTION: RAD - Knee Left 3 View - 10/05/2022 10:10 pm CLINICAL HISTORY: Left knee pain FINDINGS: Mild cortical irregularity lateral tibial plateau seen on the frontal view. This is equivo ignacia for a subtle fracture There does appear to be a moderate joint effusion. Given that these findings CT scan is recommended No dislocation
[2022-10-05] MEDS ORDERED: ONDANSETRON 4 MG/2 ML VIAL IV PRN (23:42)
[2022-10-06 00:05] VITALS: BMI 27.9
[2022-10-06] MEDS: NA CHLORIDE 0.9% 1,000 ML IV SCH ×2 (01:29→09:42)
[2022-10-06] MEDS: MORPHINE 2 MG/ML SYR IV PRN ×2 (01:30→05:36)
[2022-10-06 04:55] LABS: Absolute Lymphocytes (CBC) 2.6 K/uL (0.7-4.9); Lymphocytes % 37.9 % (15.3-44.8); MCV 78.4 fL (80-100); MPV 8.2 fL (7.6-11.3); RBC Red Blood Cell Count 4.08 M/uL (3.86-4.86)
[2022-10-06 05:09] LABS: Magnesium 1.7 mg/dL (1.6-2.4); Potassium 3.5 mEq/L (3.5-5.1)
--- NOTE | 2022-10-06 07:00 | P.PN ---
Date of Service: 10/06/22 Subjective: doing okay ambulation limited by pain per patient no new / worsening problems waiting for surgery ROS: 10 point ROS as noted above, otherwise negative Physical Exam: GEN: Alert, oriented, NAD HEENT: Normal conjunctiva, sclera anicteric CV: Regular rate and rhythm, no edema Pulm: Nonlabored respirations on room air ABD: Soft, nontender, nondistended MSK: Right leg externally rotated and shortened Neuro: Normal speech, normal affect vitals reviewed Problem List: Right intertrochanteric femur fracture Moderate Joint Effusion, L Knee Hypokalemia Hepatitis C Narcolepsy Hypothyroidism hx of GI bleed Right intertrochanteric femur fracture Moderate Joint Effusion, L Knee xray Hip (10/05): Intertrochanteric fracture right femur. Lesser trochanter avulsed medially. xray Knee (10/05): Mild cortical irregularity lateral tibial plateau seen on the frontal view. There does appear to be a moderate joint effusion CT knee (10/05): pending Ortho consulted NPO for tentative surgery today PRN pain medication cont IVF Hypokalemia Replaced in ED, protocol in place. Hepatitis C Known history of hepatitis C, INR 1.21, LFTs ok Narcolepsy Hypothyroidism Continue home medications. Check thyroid panel last TSH a few months ago was significantly low pt states no change in synthroid dose in many years, will recheck VTE: SCDs due to surgery scheduled for today Code: Full Dispo: Home 2+ days
[2022-10-06] MEDS ORDERED: MAGNESIUM SULFATE 1 gm IVPB 1 GM/100 ML BAG IV ONE (09:00)
[2022-10-06] MEDS ORDERED: KCL 20 MEQ/100 mL IVPB 20 MEQ/100 ML BAG IV SCH (09:00)
[2022-10-06 09:05] LABS: Thyroid Stimulating Hormone 0.011 uIU/mL (0.358-3.740)
--- NOTE | 2022-10-06 09:22 | P.CNS ---
Date of Consult: 10/06/22 Chief Complaint: Right hip fracture History of Present Illness: patient brought to ED after a fall at home last night on the right hip, NPO Allergies acetaminophen [From Vicodin] Allergy (Intermediate, Verified 09/07/11 10:29) severe headache hydrocodone bitartrate [From Vicodin] Allergy (Intermediate, Verified 09/07/11 10:29) severe headache meperidine HCl [From Demerol] Allergy (Intermediate, Verified 09/07/11 10:29) severe headache Penicillins Allergy (Mild, Verified 09/07/11 10:29) Hives codeine Allergy (Verified 11/30/15 18:26) Unknown aspirin Adverse Reaction (Intermediate, Verified 09/07/11 10:29) nausea chocolate Allergy (Severe, Uncoded 09/08/11 16:26) Shortness of breath "all pain Allergy (Uncoded 11/29/15 22:23) Unknown "all pain pills" Allergy (Uncoded 03/28/17 21:19) Unknown tulips Allergy (Uncoded 03/28/17 21:19) Unknown Home Medications: Calcium Carbonate/Vitamin D3 [Calcium 500 + Vit D 400 Tablet] 1 tab PO DAILY 03/28/17 Dextroamphetamine/Amphetamine [Adderall Xr 30 mg Capsule] 30 mg PO DAILY 03/28/17 Famotidine [Pepcid*] 40 mg PO DAILY 03/28/17 Levothyroxine [Synthroid*] 0.125 mg PO DAILY 03/28/17 Torsemide [Demadex*] 20 mg PO DAILY 03/28/17 Amlodipine [Norvasc*] 10 mg PO DAILY #30 tab 04/05/17 Levofloxacin [Levaquin] 500 mg PO DAILY #5 tablet 04/05/17 carvediloL [Coreg*] 25 mg PO BID 6AM 6PM #60 tab 04/05/17 - Past Medical/Surgical History Diabetic: No -: Hypothyroidism -: Narcolepsy -: Hepatitis C -: Hypokalemia -: tonsillectomy -: arm sx Psychosocial/ Personal History: Patient lives at home with family - Family History Father Medical History: Diabetes Mother Medical History: Diabetes - Social History Smoking Status: Current every day smoker Alcohol use: No CD- Drugs: No Caffeine use: Yes Place of Residence: Home Physical Examination Temp Pulse Resp BP Pulse Ox 98.4 F 95 H 20 129/65 93 10/06/22 08:00 10/06/22 08:00 10/06/22 08:00 10/06/22 08:00 10/06/22 08:00 Laboratory Data (last 24 hrs) 10/05/22 21:56: PT 13.3 H, INR 1.21 10/05/22 21:56: Total Bilirubin 0.3, AST 26, ALT 36, Alkaline Phosphatase 125 H 10/05/22 19:27: Sodium 137, Potassium 2.8 L, BUN 22 H, Creatinine 1.39 H, Glucose 177 H 10/05/22 19:27: WBC 9.90, Hgb 11.4 L, Hct 36.2, Plt Count 151 L Imagings Data: EXAM DESCRIPTION: RAD - Hip Right 2 View - 10/05/2022 8:09 pm CLINICAL HISTORY: Right hip pain FINDINGS: Intertrochanteric fracture right femur. Fracture fragments by 9 millimeters. Lesser trochanter avulsed medially. No dislocation Dictated By: Mac Alexandra MD 10/05/222035 EXAM DESCRIPTION: RAD - Knee Left 3 View - 10/05/2022 10:10 pm CLINICAL HISTORY: Left knee pain FINDINGS: Mild cortical irregularity lateral tibial plateau seen on the frontal view. This is equivocal for a subtle fracture There does appear to be a moderate joint effusion. Given that these findings CT scan is recommended No dislocation Dictated By: Mac Alexandra MD 10/05/22 222 - Problems (1) Intertrochanteric fracture of right hip Current Visit: Yes Status: Acute Qualifiers: Encounter type: initial encounter Fracture type: closed Fracture alignment: displaced Qualified Code(s): S72.141A - Displaced intertrochanteric fracture of right femur, initial encounter for closed fracture Conclusions/Impression: Hospitalist staff found patient clinically stable for surgery, she is NPO, we will perform an intramedullary rodding of the right femur this morning
[2022-10-06] MEDS ORDERED: propofoL 200 MG/20 ML VIAL IV ONE (10:04)
[2022-10-06] MEDS ORDERED: FENTANYL CITR 100 MCG/2 ML ONE (10:04)
[2022-10-06] MEDS ORDERED: LIDOCAINE 1% MPF 5 ML VIAL ONE (10:04)
[2022-10-06] MEDS ORDERED: dexAMETHasone 4 MG/ML VIAL ONE (10:05)
[2022-10-06] MEDS ORDERED: KETOROLAC 30 MG/ML INJ ONE (10:05)
[2022-10-06] MEDS ORDERED: MIDAZOLAM HCL 2 MG/2 ML INJ ONE (10:05)
[2022-10-06] MEDS ORDERED: ONDANSETRON 4 MG/2 ML VIAL ONE (10:07)
[2022-10-06] MEDS ORDERED: TRANEXAMIC ACID 1,000 MG/10 ML VIAL IV ONE (10:57)
[2022-10-06] MEDS: CEFAZOLIN SODIUM 1 GM/VIAL ONE ×2 (11:25→11:35)
[2022-10-06] MEDS ORDERED: MORPHINE 10 MG/ML VIAL ONE (12:21)
[2022-10-06] MEDS: MORPHINE 4 MG/ML SYR ONE ×2 (12:37→12:47)
--- NOTE | 2022-10-06 13:14 | RAD REPORT ---
EXAM DESCRIPTION: RAD - Pelvis - 10/06/2022 12:46 pm CLINICAL HISTORY: s/p R HIP IM RODDING COMPARISON: Hip Right 2 View dated 10/05/2022 FINDINGS/IMPRESSION: Intramedullary vishnu with cephalomedullary screw in the right femur for right int ertrochanteric fracture fixation. No hardware complications. Tubal ligation clips. No dislocation.
--- NOTE | 2022-10-06 15:50 | OP ---
Surgeon: Mac Lozano MD Manager Research Development: Assembler Finger Buffs: JAZMINE Boyd Preoperative Diagnosis: Right intertrochanteric hip fracture. Postoperative Diagnosis: Right intertrochanteric hip fracture. Procedure Performed: IM rodding, right intertrochanteric hip fracture. Complications: None. Disposition: To recovery room stable. Procedure In Detail: The patient was taken to the operative suite, placed in supine position, and in duced with anesthesia. Right hip was prepped and draped in a sterile fashion. Skin incision over th e greater trochanter was created. Tensor fascia buster was incised. Entry portal created in the tip o f the greater trochanter. A single stage reaming performed. An 11 x 125 nail was then placed by a 9 5 lag screw placed in the subchondral bone of the femoral head, verified on biplane radiography. Dis kirt interlock screw was placed 34 mm. The patient tolerated the procedure well. A layered closure w as being performed at the time of this dictation and she should be in the recovery room shortly. JOANNA/KELLY Voice ID: [id number] Report ID: [id number]
[2022-10-06] MEDS ORDERED: NA CHLORIDE 0.9% 250 ML ONE (15:54)
--- NOTE | 2022-10-06 16:18 | RAD REPORT ---
EXAM DESCRIPTION: CT - Knee Left Wo Con - 10/05/2022 11:20 pm CLINICAL HISTORY: 61 years Female ABN xray TECHNIQUE: Axial noncontrast images acquired through the left knee This CT exam was performed according to our departmental dose-optimization program, which includes on e or more of the following dose reduction techniques: automated exposure control, adjustment of the m A and/or kV according to patient size, and/or use of iterative reconstruction technique. COMPARISON: No prior exams provided for comparison. FINDINGS: There is a large suprapatellar joint effusion with a large popliteal cyst. There is no acu te left knee fracture or dislocation. There is tricompartmental osteoarthritis which is moderate in the lateral compartment. There is chond rocalcinosis of the menisci. Possible intra-articular bodies lateral to the lateral femoral condyle. No aggressive osseous lesion. No soft tissue mass. IMPRESSION: Tricompartmental osteoarthritis which is moderate in the lateral compartment. Large supr apatellar joint effusion with a large popliteal cyst and possible intra-articular bodies. No acute fr acture or aggressive osseous lesion. Electronically signed by: Sara Hollins MD 10/06/2022 12:16 AM CDT Due to temporary technical issues with the PACS/Fluency reporting system, reports are being signed by the in house radiologists without review as a courtesy to insure prompt reporting. The interpreting radiologist is fully responsible for the content of the report.
--- NOTE | 2022-10-06 19:19 | RAD REPORT ---
EXAM DESCRIPTION: RAD - Fluoroscopy <1 Hour - 10/06/2022 12:09 pm CLINICAL HISTORY: RT HIP RODDING COMPARISON: No comparisons FINDINGS/IMPRESSION: Twenty-five intraoperative fluoroscopic images were submitted showing placement of a right femoral intramedullary vishnu and cephalomedullary screw for fixation of a right intertrocha nteric hip fracture. Cumulative dose: 23 mGy Fluoro time: 2 minutes
[2022-10-06] MEDS: CEFAZOLIN 1 GM in NA CHLORIDE 0.9% 50 ML IVPB SCH (21:52)
[2022-10-07] MEDS: CEFAZOLIN 1 GM in NA CHLORIDE 0.9% 50 ML IVPB SCH (02:49)
[2022-10-07 07:00] LABS: Absolute Lymphocytes (CBC) 2.2 K/uL (0.7-4.9); Hematocrit 26.4 % (36.0-45.0); Lymphocytes % 25.7 % (15.3-44.8); MCV 78.8 fL (80-100); MPV 8.9 fL (7.6-11.3); RBC Red Blood Cell Count 3.35 M/uL (3.86-4.86)
--- NOTE | 2022-10-07 07:01 | P.PN ---
Date of Service: 10/07/22 Subjective: doing okay no new / worsening problems pain slowly improving mild erythema of neck/chin has not ambulated yet ROS: 10 point ROS as noted above, otherwise negative Physical Exam: GEN: Alert, oriented, NAD, Valera in place HEENT: Normal conjunctiva, sclera anicteric CV: Regular rate and rhythm, no edema Pulm: Nonlabored respirations on room air MSK: right leg with surgical dressing c/d/i; L knee effusion Integumentary: Mild Erythema neck/chin Neuro: Normal speech, normal affect Valera in place vitals reviewed Problem List: Right intertrochanteric femur fracture now w/p IM rodding (10/06) Moderate Joint Effusion, L Knee Hypokalemia Hepatitis C Narcolepsy Hypothyroidism hx of GI bleed Right intertrochanteric femur fracture, s/p IM rodding (10/06) xray Hip (10/05): Intertrochanteric fracture right femur. Lesser trochanter avulsed medially. Ortho consulted s/p IM rodding (10/06); PT awaiting weightbearing status from ortho patient has not ambulated / gotten out of bed yet Monitor H&H. Transfuse if hgb <7 check iron studies PRN pain medication cont IVF PT consult Moderate Joint Effusion, L Knee xray Knee (10/05): Mild cortical irregularity lateral tibial plateau seen on the frontal view. There does appear to be a moderate joint effusion message sent to Ortho BRANDIE Moreira; AM of 10/06 that patient has pain and large effusion of left knee with final CT read pending CT knee (10/05): Tricompartmental osteoarthritis which is moderate in the lateral compartment. Large suprapatellar joint effusion with a large popliteal cyst and possible intra-articular bodies. No acute fracture or aggressive osseous lesion awaiting recs Hypokalemia Replaced in ED, protocol in place. Hepatitis C Known history of hepatitis C, INR 1.21, LFTs ok Hypothyroidism last TSH a few months ago was significantly low pt states no change in synthroid dose in many years TSH: .011 T4: 1.45 decrease synthroid dose Narcolepsy Continue home medications. VTE: SCDs Code: Full Dispo: Home 2+ days vs SNF
[2022-10-07 07:02] LABS: Magnesium 2.3 mg/dL (1.6-2.4)
[2022-10-07 07:18] LABS: Blood Morphology Comment NOT SEEN (NOT SEEN); Platelet Estimate DECR; White Blood Cell Scan OK (OK)
[2022-10-07] MEDS: MORPHINE 2 MG/ML SYR IV PRN ×2 (14:11→23:55)
[2022-10-07 18:22] LABS: Hematocrit 26.8 % (36.0-45.0); MCV 79.3 fL (80-100); MPV 8.3 fL (7.6-11.3); RBC Red Blood Cell Count 3.38 M/uL (3.86-4.86)
[2022-10-07] MEDS: DOCUSATE NA 100 MG CAP PO SCH (20:33)
[2022-10-07] MEDS: CYCLOBENZAPRINE 10 MG TAB PO PRN (23:55)
[2022-10-08 06:40] LABS: Hematocrit 30.8 % (36.0-45.0); MCV 79.3 fL (80-100); MPV 8.5 fL (7.6-11.3); RBC Red Blood Cell Count 3.89 M/uL (3.86-4.86)
[2022-10-08 07:04] LABS: Potassium 4.4 mEq/L (3.5-5.1)
[2022-10-08] MEDS: MORPHINE 2 MG/ML SYR IV PRN ×3 (08:33→23:39)
[2022-10-08] MEDS: DOCUSATE NA 100 MG CAP PO SCH ×2 (08:34→21:00)
[2022-10-08] MEDS: CYCLOBENZAPRINE 10 MG TAB PO PRN (08:34)
--- NOTE | 2022-10-08 15:01 | EKG ---
Test Date: 2022-10-05 Test Time: 19:43:29 Level Vial Curvature Gauger: Robby AVALOS MEASUREMENT RESULTS: Intervals: Rate: 86 ID: [id number] QRSD: 100 QT: 398 QTc: 476 [place]: P: 79 ID: [id number] QRS: 87 T: 78 INTERPRETIVE STATEMENTS: Normal sinus rhythm Normal ECG Compared to ECG 06/21/2022 16:06:16 No significant changes Electronically Signed On 10-08-22 14:57:12 CDT by Parish [place]
--- NOTE | 2022-10-08 18:21 | P.PN ---
Subjective Date of Service: 10/08/22 Chief Complaint: Right hip fracture Patient has no new complaints except intermittent hip pain. Physical Examination - Vital Signs Temperature: 98.9 F Blood Pressure: 151/72 Pulse: 104 Respirations: 24 Pulse Ox (%): 96 Assessment And Plan - Plan Physical Exam: GEN: Alert, oriented, NAD HEENT: Normal conjunctiva, sclera anicteric CV: Regular rate and rhythm, no edema Pulm: Clear to auscultation bilaterally ABD: Soft, nontender, nondistended MSK: Right leg externally rotated and shortened Neuro: Normal speech, normal affect vitals reviewed Problem List: Right intertrochanteric femur fracture Moderate Joint Effusion, L Knee Hypokalemia Hepatitis C Narcolepsy Hypothyroidism hx of GI bleed Right intertrochanteric femur fracture Moderate Joint Effusion, L Knee xray Hip (10/05): Intertrochanteric fracture right femur. Lesser trochanter avulsed medially. xray Knee (10/05): Mild cortical irregularity lateral tibial plateau seen on the frontal view. There does appear to be a moderate joint effusion CT knee (10/05): pending Ortho consulted Status post ORIF. PRN pain medication Lovenox for DVT prophylaxis Hypokalemia Correct electrolytes as needed Hepatitis C Known history of hepatitis C, INR 1.21, LFTs ok. Resume home antivirals Narcolepsy Hypothyroidism Low TSH indicating hyperthyroid state. Decrease home Synthroid dose from 125 mcg to 100 mcg daily. VTE: Lovenox Code: Full Dispo: Anticipating SNF.
[2022-10-08] MEDS: ENOXAPARIN 40 MG/0.4 ML SQ SCH (23:34)
[2022-10-09] MEDS: MORPHINE 2 MG/ML SYR IV PRN ×3 (05:41→14:24)
[2022-10-09] MEDS: LEVOTHYROXINE SOD 0.1 MG TAB PO SCH (05:46)
[2022-10-09] MEDS: CYCLOBENZAPRINE 10 MG TAB PO PRN ×2 (05:46→12:04)
[2022-10-09] MEDS: DOCUSATE NA 100 MG CAP PO SCH ×2 (08:30→21:37)
[2022-10-09] MEDS: ENOXAPARIN 40 MG/0.4 ML SQ SCH (08:30)
[2022-10-09] MEDS: TORSEMIDE 20 MG TAB PO SCH (08:30)
[2022-10-09] MEDS: HOME MED 1 EA UNK (Dextroamphetamine/Amphetamine [Adderall 20 Mg Tablet] 20 MG Tablet) PO SCH (08:30)
[2022-10-09] MEDS ORDERED: LEVOTHYROXINE SOD 0.125 MG TAB PO SCH (09:00)
[2022-10-09] MEDS ORDERED: KETOROLAC 30 MG/ML INJ IV PRN (15:46)
--- NOTE | 2022-10-09 15:51 | P.PN ---
Subjective Date of Service: 10/09/22 Chief Complaint: Right hip fracture Patient is complaining of uncontrolled pain in the left knee. She has not been able to ambulate yet due to pain. Physical Examination - Vital Signs Temperature: 98.7 F Blood Pressure: 171/77 Pulse: 107 Respirations: 19 Pulse Ox (%): 98 Assessment And Plan - Plan Physical Exam: GEN: Alert, oriented, NAD HEENT: Normal conjunctiva, sclera anicteric CV: Regular rate and rhythm, no edema Pulm: Clear to auscultation bilaterally ABD: Soft, nontender, nondistended MSK: Right leg externally rotated and shortened Neuro: Normal speech, normal affect vitals reviewed Problem List: Right intertrochanteric femur fracture Moderate Joint Effusion, L Knee Hypokalemia Hepatitis C Narcolepsy Hypothyroidism hx of GI bleed Right intertrochanteric femur fracture Moderate Joint Effusion, L Knee xray Hip (10/05): Intertrochanteric fracture right femur. Lesser trochanter avulsed medially. xray Knee (10/05): Mild cortical irregularity lateral tibial plateau seen on the frontal view. There does appear to be a moderate joint effusion CT knee (10/05): pending Ortho consulted Status post ORIF. PRN pain medication. Trial of oral hydromorphone and IV Toradol. Orthopedic surgery to follow regarding knee pain and postop management of hip fracture. Lovenox for DVT prophylaxis Activity as tolerated. Hypokalemia Correct electrolytes as needed Hepatitis C Known history of hepatitis C, INR 1.21, LFTs ok. Continue home antivirals Narcolepsy Hypothyroidism Low TSH indicating hyperthyroid state. Decrease home Synthroid dose from 125 mcg to 100 mcg daily. Recheck TSH in 8-weeks. VTE: Lovenox Code: Full Dispo: Anticipating SNF.
[2022-10-09] MEDS: VELPATASVIR PO SCH (17:38)
[2022-10-09] MEDS: SOFOSBUVIR PO SCH (17:38)
[2022-10-10] MEDS: MORPHINE 2 MG/ML SYR IV PRN ×2 (04:24→20:21)
[2022-10-10] MEDS: LEVOTHYROXINE SOD 0.1 MG TAB PO SCH (05:50)
[2022-10-10] MEDS: VELPATASVIR PO SCH (09:00)
[2022-10-10] MEDS: SOFOSBUVIR PO SCH (09:00)
[2022-10-10] MEDS: HOME MED 1 EA UNK (Dextroamphetamine/Amphetamine [Adderall 20 Mg Tablet] 20 MG Tablet) PO SCH (09:00)
[2022-10-10] MEDS: DOCUSATE NA 100 MG CAP PO SCH ×2 (09:28→20:20)
[2022-10-10] MEDS: TORSEMIDE 20 MG TAB PO SCH (09:28)
[2022-10-10] MEDS: ENOXAPARIN 40 MG/0.4 ML SQ SCH (09:28)
--- NOTE | 2022-10-10 16:18 | P.PN ---
Subjective Date of Service: 10/10/22 Chief Complaint: Right hip fracture Patient is complaining of pain in the left knee. Physical Examination - Vital Signs Temperature: 97.6 F Blood Pressure: 153/84 Pulse: 92 Respirations: 18 Pulse Ox (%): 97 Assessment And Plan - Plan Physical Exam: GEN: Alert, oriented, NAD HEENT: Normal conjunctiva, sclera anicteric CV: Regular rate and rhythm, no edema Pulm: Clear to auscultation bilaterally ABD: Soft, nontender, nondistended MSK: Right leg externally rotated and shortened Neuro: Normal speech, normal affect vitals reviewed Problem List: Right intertrochanteric femur fracture Moderate Joint Effusion, L Knee Hypokalemia Hepatitis C Narcolepsy Hypothyroidism hx of GI bleed Right intertrochanteric femur fracture Moderate Joint Effusion, L Knee xray Hip (10/05): Intertrochanteric fracture right femur. Lesser trochanter avulsed medially. xray Knee (10/05): Mild cortical irregularity lateral tibial plateau seen on the frontal view. There does appear to be a moderate joint effusion CT knee (10/05): pending Ortho consulted Status post ORIF. PRN pain medication. Continue oral hydromorphone and IV Toradol. Orthopedic surgery to follow regarding knee pain and postop management of hip fracture. Lovenox for DVT prophylaxis Activity as tolerated. Hypokalemia Correct electrolytes as needed Hepatitis C Known history of hepatitis C, INR 1.21, LFTs ok. Continue home antivirals Narcolepsy Hypothyroidism Low TSH indicating hyperthyroid state. Decrease home Synthroid dose from 125 mcg to 100 mcg daily. Recheck TSH in 8-weeks. VTE: Lovenox Code: Full Dispo: Anticipating SNF.
[2022-10-11 00:04] VITALS: O2SAT 96
[2022-10-11] MEDS: HYDROMORPHONE ORAL 2 MG TAB PO PRN ×2 (00:20→07:01)
[2022-10-11] MEDS: CYCLOBENZAPRINE 10 MG TAB PO PRN (05:10)
[2022-10-11] MEDS: MORPHINE 2 MG/ML SYR IV PRN ×2 (05:10→09:23)
[2022-10-11] MEDS: LEVOTHYROXINE SOD 0.1 MG TAB PO SCH (05:35)
[2022-10-11 08:18] VITALS: BP 145/53; TEMP 97.9
[2022-10-11] MEDS: VELPATASVIR PO SCH (09:00)
[2022-10-11] MEDS: HOME MED 1 EA UNK (Dextroamphetamine/Amphetamine [Adderall 20 Mg Tablet] 20 MG Tablet) PO SCH (09:00)
[2022-10-11] MEDS: SOFOSBUVIR PO SCH (09:00)
[2022-10-11] MEDS: DOCUSATE NA 100 MG CAP PO SCH (09:17)
[2022-10-11] MEDS: TORSEMIDE 20 MG TAB PO SCH (09:17)
[2022-10-11] MEDS: ENOXAPARIN 40 MG/0.4 ML SQ SCH (09:17)
--- NOTE | 2022-10-11 13:17 | P.DS ---
Admission Date: 10/05/22 Discharge Date: 10/11/22 Disposition: TRANSFER TO SNF - REHAB Discharge Condition: FAIR Reason for Admission: Right hip fracture Brief History of Present Illness: 61-year-old female with history of hepatitis C, hypothyroidism, and narcolepsy presented to the emergency department with mechanical fall, right hip pain. She reports that she was trying to move a large object when she fell backwards and injured her right hip. She was evaluated in the emergency department her x-ray shows intertrochanteric fracture of the right femur. Fracture fragments by 9 mm. Lesser trochanter avulsed medially. Labs showed hemoglobin 11.4 hematocrit 36.2 INR 1.21 potassium 2.8 creatinine 1.39 GFR 43 glucose 177. ED physician spoke to orthopedic Dr. Lozano who recommended admission for further treatment. Hospital Course: Diagnosis Right intertrochanteric femur fracture Moderate Joint Effusion, L Knee Hypokalemia Hepatitis C Narcolepsy Hypothyroidism hx of GI bleed Patient was admitted to the medical floor and the following medical problems addressed: Right intertrochanteric femur fracture Moderate Joint Effusion, L Knee xray Hip (10/05): Intertrochanteric fracture right femur. Lesser trochanter avulsed medially. xray Knee (10/05): Mild cortical irregularity lateral tibial plateau seen on the frontal view. There does appear to be a moderate joint effusion CT knee (10/05): pending Ortho consulted Status post ORIF. Patient's pain was managed with hydromorphone. She was also on IV Toradol briefly She has significant left knee pain which is also being managed with the pain medications Lovenox for DVT prophylaxis as inpatient. She is discharged with 21 days of Eliquis for DVT prophylaxis. Follow-up with Dr. Lozano as outpatient. Hypokalemia Potassium supplementation as needed. Hepatitis C Known history of hepatitis C, INR 1.21, LFTs ok. Continued home antivirals Narcolepsy Hypothyroidism Low TSH indicating hyperthyroid state. Decrease home Synthroid dose from 125 mcg to 100 mcg daily. Recheck TSH in 8-weeks. Vital Signs/Physical Exam: Temp Pulse Resp BP Pulse Ox 97.9 F 102 H 19 145/53 H 98 10/11/22 08:00 10/11/22 08:00 10/11/22 08:00 10/11/22 08:00 10/11/22 08:00 General: Alert, In no apparent distress, Oriented x3 HEENT: Mucous membr. moist/pink Neck: Supple Respiratory: Clear to auscultation bilaterally, Normal air movement Cardiovascular: No edema, Regular rate/rhythm, Normal S1 S2 Gastrointestinal: Normal bowel sounds, Soft and benign, Non-distended Musculoskeletal: Other (Bilateral knee swelling) Integumentary: No cyanosis Neurological: Normal strength at 5/5 x4 extr Laboratory Data at Discharge: WBC 10.20 thou/uL (4.3-10.9) 10/08/22 06:21 Hgb 9.7 g/dL (12.0-15.0) L D 10/08/22 06:21 Hct 30.8 % (36.0-45.0) L 10/08/22 06:21 Plt Count 96 thou/uL (152-406) L 10/08/22 06:21 PT 13.3 SECONDS (9.5-12.5) H 10/05/22 21:56 INR 1.21 10/05/22 21:56 Sodium 140 mEq/L (136-145) 10/08/22 06:21 Potassium 4.4 mEq/L (3.5-5.1) 10/08/22 06:21 BUN 16 mg/dL (7-18) 10/08/22 06:21 Creatinine 0.89 mg/dL (0.55-1.02) 10/08/22 06:21 Glucose 131 mg/dL (74-106) H 10/08/22 06:21 Magnesium 2.3 mg/dL (1.6-2.4) 10/07/22 06:28 Total Bilirubin 0.3 mg/dL (0.2-1.0) 10/05/22 21:56 AST 26 U/L (15-37) 10/05/22 21:56 ALT 36 U/L (13-56) 10/05/22 21:56 Alkaline Phosphatase 125 U/L (45-117) H 10/05/22 21:56 Home Medications: Torsemide [Demadex*] 20 mg PO DAILY 03/28/17 Dextroamphetamine/Amphetamine [Adderall 20 mg Tablet] 40 mg PO DAILY 10/07/22 Potassium Chloride [Klor-Con M20] 20 meq PO DAILY 10/07/22 Sofosbuvir/Velpatasvir [Sofosbuvir-Velpatasvir 400-100] 1 each PO DAILY 10/07/22 Apixaban [Eliquis] 5 mg PO BID 21 Days tab 10/11/22 Docusate [Colace Cap*] 100 mg PO BID cap 10/11/22 Hydromorphone [Dilaudid*] 2 mg PO Q6H PRN #12 tab 10/11/22 Levothyroxine [Synthroid*] 0.1 mg PO DAILYAC tab 10/11/22 New Medications: Hydromorphone [Dilaudid*] 2 mg PO Q6H PRN #12 tab PRN Reason: Pain Scale 8-10 (Severe) Apixaban [Eliquis] 5 mg PO BID 21 Days tab Diet: AHA Activity: Fall precautions Followup: Mac Lozano MD [ACTIVE - CAN ADMIT] - (Within 3 weeks) Time spent managing pt's care (in minutes): 38
== END 2022-10-11 17:30 | DRG 482 ==
LOC: ER 19:12 → 4TH 22:00
PROVIDERS: ADMIT Hospitalist; ATTEND Internal Medicine
PROC: 0QS606Z Reposition Right Upper Femur with Intramedullary Internal Fixation Device, Open Approach (ICD-10-PCS; principal; 2022-10-06 10:00)
DX: S72.141A Displaced intertrochanteric fracture of right femur, initial encounter for closed fracture (principal); I10 Essential (primary) hypertension; E87.6 Hypokalemia; E03.9 Hypothyroidism, unspecified; G47.419 Narcolepsy without cataplexy; M71.20 Synovial cyst of popliteal space [Baker], unspecified knee; M25.462 Effusion, left knee; F17.210 Nicotine dependence, cigarettes, uncomplicated; B19.20 Unspecified viral hepatitis C without hepatic coma; R73.9 Hyperglycemia, unspecified; Z88.5 Allergy status to narcotic agent; Z88.0 Allergy status to penicillin; Z88.6 Allergy status to analgesic agent; Z88.8 Allergy status to other drugs, medicaments and biological substances; Z91.02 Food additives allergy status; Z91.09 Other allergy status, other than to drugs and biological substances; Z79.890 Hormone replacement therapy; Z79.899 Other long term (current) drug therapy; W01.0XXA Fall on same level from slipping, tripping and stumbling without subsequent striking against object, initial encounter; Y92.9 Unspecified place or not applicable; Y99.9 Unspecified external cause status
CPT/HCPCS: 36415; 51702; 72170; 73700; 76000; 80048; 80076; 82728; 83540; 83550; 83735; 84439; 84443; 85025; 85027; 85610; 93005; 97110; 97161; 97530; 99285; J0690; J1100; J1650; J2001; J2250; J2270; J2405; J2704; J3010; J3475; J3480; J7030; J7050